=== PATIENT | male | born 1965 | race Caucasian/White ===

== ENCOUNTER → 2017-05-26 | Outpatient (CLI) | payer OTHER ==
[~2017-05-26] MED LIST: AMOX1TAB43 PO; ANDG TOP; ASPI81TA21 PO; BACIOIN2 TOP; BISA10SU RE; CALCTAB13 PO; CLC100 PO; CLC100X PO; CONSTULOSE PO; DIAZ5TAB PO; FLU IM; FLUO20CA36 PO; FLV1 PO; IPRA1AER2 INH; IPRASOL4 INH; MRLP120 PO; MULTTAB58 PO; NICO14DI5 TD; POLY335019 PO; POLY335025; PSEU60TA80 PO; THM100 PO
--- NOTE | 2017-06-08 10:42 | CODING QUERY MEDICAL NECESSITY ---
SUPPORTING DIAGNOSIS NEEDED A supporting diagnosis is required for the test/procedure performed on this patient in order for us to be reimbursed by the patient's insurance. Please provide a supporting diagnosis for the following test/procedure listed below next to the test name along with your signature. *If there is no additional diagnosis for this patient that would support the following test/procedure please document that below next to the test/procedure. Test(s)/Procedure(s) that require a supporting diagnosis: * PSA DIAGNOSIS: Provider Signature: Date: Thank you Laura Paredes [employer] Once completed, please kindly fax back to [phone] For questions please call [phone]
== END | disposition home or self-care (01) ==
LOC: C.LABPVFM 09:29
PROVIDERS: ATTEND Urology
DX: E29.1 Testicular hypofunction (principal); Z12.5 Encounter for screening for malignant neoplasm of prostate; Z80.42 Family history of malignant neoplasm of prostate

== ENCOUNTER → 2017-06-02 | Outpatient (CLI) | payer OTHER ==
--- NOTE | 2017-06-20 06:52 | CODING QUERY MEDICAL NECESSITY ---
TREATMENT RENDERED WITHOUT A DIAGNOSIS To promote full compliance with coding requirements relating to patient care, physician participation is requested in all cases of business developer uncertainty. Please assist us with providing a diagnosis/symptom for the test(s) below: A diagnosis/symptom was not documented on your Order. A valid diagnosis/symptom is required to bill all insurances. Please remember that we are unable to code a diagnosis of rule out, probable, possible, questionable, or suspected. Tests that require a diagnosis: * TESTOSTERONE, TOTAL DIAGNOSIS: Provider Signature: Date: Thank you Laura Paredes [employer] Once completed, please kindly fax back to [phone] For questions please call [phone]
== END | disposition home or self-care (01) ==
LOC: C.LABPVFM 12:59
PROVIDERS: ATTEND Urology
DX: E29.1 Testicular hypofunction (principal); C62.90 Malignant neoplasm of unspecified testis, unspecified whether descended or undescended

== ENCOUNTER 2017-06-16 17:43 | Inpatient (IN) | payer OTHER ==
[2017-06-16] VITALS (7 sets, daily range): BP systolic 99–137; BP diastolic 73–100; PULSE 91–108; TEMP 34.9–35.1; O2SAT 93–98; Ht 177.8 cm; Wt 81.0 kg
[~2017-06-16] VITALS: Ht 177.8 cm; Wt 81.0 kg
[~2017-06-16 17:43] MED LIST changes: -AMOX1TAB43 PO; -BACIOIN2 TOP; -BISA10SU RE; -CLC100X PO; -FLUO20CA36 PO; -FLV1 PO; -IPRA1AER2 INH; -IPRASOL4 INH; -NICO14DI5 TD; -POLY335019 PO; -PSEU60TA80 PO; -THM100 PO
[2017-06-16] MEDS ORDERED: NALOXONE HCL 0.4 MG/1 ML VIAL/CARP ONE (18:13)
[2017-06-16] MEDS ORDERED: SODIUM CHLORIDE 0.9% 1000ML 1,000 ML IV STA (18:17)
--- NOTE | 2017-06-16 18:29 | EMERGENCY ROOM VISIT NOTE ---
History Report prepared by Katja: Ariana Wilcox Under the Supervision of: Dr. Joel Mandel M.D. First contact with patient: 18:07 Stated Complaint: CARDIAC ARREST History of Present Illness The patient is a 51 year old male who presents to the Emergency Room with complaints of an episode of possible overdose beginning about 1 hour ago. Per EMS, the patient is a quadriplegic and was found by a caregiver with an open bottle of Valium. They report that they suspect that he took the Valium and note that he was pulseless and apneic. EMS states that they used an AED and and no shock was advised. When ALS arrived they note that he had an occasional complex but it was PEA. ALS put the patient on the Vu machine and called medical command due to questions about a possible DNR. After the call, they report that the patient had a pulse and he was intubated before arriving here. They note that the patient's blood sugar was in the 300s and he did have some vomit in his airway. They deny any vomiting after their arrival. EMS notes that he has received 2.4 of Narcan. HPI limited secondary to intubation. Source of History: patient History Limited By: intubation Onset: 1 hour ago Position: other (global) Quality: other (Valium Overdose) Timing: other (episode) Associated Symptoms: + vomiting Review of Systems See HPI for pertinent positives & negatives. ROS limited secondary to intubation. Past Medical & Surgical Medical Problems: (1) Anemia (2) H/O quadriplegia (3) Testicular cancer Family History No pertinent family history stated. Social History Smoking Status: Current Every Day Smoker Marital Status: Housing Status: lives alone Occupation Status: disabled Current/Historical Medications Scheduled Aspirin Enteric Coated (Ecotrin Or Generic), 81 MG PO DAILY Bacitracin/Polymyxin B (Polysporin), 1 DOSE TOP DIRECTED Bisacodyl (Magic Bullets), 10 MG RE MWF Calcium Carbonate-Vitamin D (Os-Cristian 500 Plus D), 1 TAB PO DAILY Diazepam (Valium), 5 MG PO BID Docusate Sodium (Docusate Sodium), 100 MG PO DAILY Multiple Vitamin (Multivitamin), 1 TAB PO DAILY Polyethylene Glycol 3350 (Miralax), 17 GM PO DAILY Testosterone (Androgel), 1 APPLN TOP DAILY DIRECTED Allergies Coded Allergies: Adhesives (Verified Adverse Reaction, Mild, LOCAL RASH, 08/29/14) Physical Exam Vital Signs Date Time Temp Pulse Resp B/P (MAP) Pulse Ox O2 Delivery O2 Flow Rate FiO2 06/16/17 21:41 105 12 106/81 94 Mechanical Ventilator 80 06/16/17 21:32 103 12 90/73 94 Mechanical Ventilator 80 06/16/17 21:24 99 12 98/72 95 Mechanical Ventilator 80 06/16/17 21:21 100 06/16/17 21:18 97 12 85/63 95 Mechanical Ventilator 80 06/16/17 21:13 100 12 106/70 95 Mechanical Ventilator 06/16/17 21:05 89 20 100/71 99 Mechanical Ventilator 06/16/17 20:56 86 12 88/74 99 Mechanical Ventilator 06/16/17 20:49 87 12 91/77 99 Mechanical Ventilator 100 06/16/17 20:21 109/81 06/16/17 20:20 86 12 100 06/16/17 20:16 79/52 06/16/17 20:15 95 12 100 06/16/17 20:12 113/91 06/16/17 20:10 90 12 100 06/16/17 20:09 123/88 06/16/17 20:06 152/110 06/16/17 20:05 89 12 100 06/16/17 20:01 128/94 06/16/17 20:00 88 12 100 06/16/17 19:56 143/94 06/16/17 19:55 86 12 100 06/16/17 19:51 130/89 06/16/17 19:50 87 12 100 06/16/17 19:46 147/105 06/16/17 19:45 83 12 100 06/16/17 19:41 155/97 06/16/17 19:40 82 12 100 06/16/17 19:36 145/101 06/16/17 19:35 81 12 100 06/16/17 19:31 146/96 06/16/17 19:30 83 12 100 06/16/17 19:26 143/101 06/16/17 19:25 81 12 100 06/16/17 19:21 125/84 06/16/17 19:20 83 12 100 06/16/17 19:17 78/48 06/16/17 19:15 85 12 100 06/16/17 19:10 87 12 100 06/16/17 19:06 71/53 06/16/17 19:05 90 0 100 06/16/17 19:04 82/51 06/16/17 19:01 74/59 06/16/17 19:00 91 0 100 06/16/17 18:51 92 85/53 100 06/16/17 18:30 85/56 06/16/17 18:26 34.6 100 86/66 100 Mechanical Ventilator 06/16/17 18:22 100 92/73 100 Mechanical Ventilator 06/16/17 18:21 100 06/16/17 18:19 100 Mechanical Ventilator 06/16/17 18:13 101 06/16/17 18:11 101 84/54 100 Mechanical Ventilator Physical Exam Vital signs reviewed. General: Intubated, no spontaneous movement. HEENT: No scleral icterus, pupils are pinpoint, neck supple. Vomit in the nose. Cardiovascular: Tachycardic rate and regular rhythm, no extra sounds. Pulmonary: Intubated, equal breath sounds, coarse bilaterally. Abdomen: Soft, nontender, nondistended, positive bowel sounds. Musculoskeletal: Atraumatic, no peripheral edema. Neurologic: Responds to painful stimuli with minimal L hand/arm movement. Some facial flinching. + gag on tube Skin: Warm, dry, no rash Medical Decision & Procedures ER Provider Diagnostic Interpretation: Radiology results as stated below per my review and radiologist interpretation: HEAD WITHOUT CONTRAST (CT) FINDINGS: No acute intracranial hemorrhage, midline shift, mass, large territorial ischemia or abnormal extra-axial collection. There is mild cerebral atrophy, greater than expected for patient's stated age. Feliz-white interface is maintained. Basal cisterns appear normal. There is an ill-defined area of low-attenuation within the periventricular white matter of the left frontal hemisphere seen on image 17 with additional scattered less distinct areas of periventricular white matter low attenuation. No comparison is available to assess for chronicity. The calvarium is intact. The mastoid air cells, and middle ear cavities are clear. There is moderate mucosal thickening of the nasopharynx, sphenoid, maxillary and ethmoid sinuses with associated air-fluid levels. Air-fluid level also noted within the right frontal sinus. Soft tissues are unremarkable. Orbits are symmetric. IMPRESSION: 1. No acute intracranial hemorrhage, midline shift or territorial ischemia. 2. Scattered areas of low-attenuation within the periventricular white matter of the cerebral hemispheres bilaterally are nonspecific findings and may reflect chronic microvascular ischemic changes with mild cerebral atrophy, mildly advanced for patient's stated age. 3. Acute pansinusitis. The above report was generated using voice recognition software. It may contain grammatical, syntax or spelling errors. Electronically signed by: Serafin Keyes M.D. 06/16/2017 6:53 PM Dictated Date/Time: 06/16/2017 6:[address] ANGIOGRAPHY OF THE CHEST, PULMONARY EMBOLUS PROTOCOL FINDINGS: The tip of the endotracheal tube is 2 cm above the milena. No pulmonary emboli are identified although the segmental and subsegmental pulmonary arteries are suboptimally assessed due to respiratory motion. There is mild cardiomegaly. There is no evidence of thoracic aortic dissection. No pneumothorax is present. There are trace bilateral pleural effusions. Note is made of asymmetric enlargement and infiltration involving the visualized portions of the right strap muscles of the neck as well as the sternocleidomastoid muscle. Infiltration extends into the upper mediastinum. This is slightly hyperdense and favors hemorrhage. No dissection within the major vessels is identified on this examination. Extensive secretions are noted throughout the airways. There is dependent airspace opacity within the upper and lower lobes with multifocal groundglass and tree-in-bud opacities throughout the lungs. No acute rib fractures are identified. There is minimal infiltration within the alberto hepatis and adjacent to the gallbladder. IMPRESSION: 1. No pulmonary emboli identified although segmental and subsegmental pulmonary arteries are suboptimally assessed due to respiratory motion. No thoracic aortic dissection. 2. Satisfactory positioning of endotracheal tube. 3. Asymmetric enlargement and infiltration involving visualized portions of the right strap muscles of the neck and sternocleidomastoid muscle with mild tracheal displacement. This finding is partially imaged and suggests a moderate sized hematoma. An inflammatory process could appear similar although is considered less likely. 4. Consolidation within the dependent aspects of both lungs with scattered tree-in-bud and groundglass opacities throughout both lungs with extensive secretions within the airways. The findings suggest aspiration. 5. Mild nonspecific pericholecystic infiltration and infiltration within the alberto hepatis. Findings discussed with Dr. Stoll at time of dictation. Electronically signed by: Munir Sanchez M.D. 06/16/2017 7:13 PM Dictated Date/Time: 06/16/2017 6:50 PM CHEST ONE VIEW PORTABLE FINDINGS: Endotracheal tube terminates 3.4 cm superior to the level of the milena. Cardiac silhouette is enlarged with bilateral upper lobe and perihilar consolidative opacities. There is mild pulmonary vascular congestion. The lungs are hypoinflated without pneumothorax or large pleural effusion identified. Fusion hardware involves the lower cervical spine. There is increased soft tissue prominence of the right lower neck. IMPRESSION: 1. Satisfactory position of endotracheal tube. 2. Cardiomegaly with mild pulmonary vascular congestion, perihilar and upper lobe alveolar opacities suggesting aspiration pneumonitis, atelectasis or pulmonary edema. 3. Asymmetric soft tissue prominence of the right lateral neck soft tissues is better evaluated on comparison CTA of same day. The above report was generated using voice recognition software. It may contain grammatical, syntax or spelling errors. Electronically signed by: Serafin Keyes M.D. 06/16/2017 7:03 PM Dictated Date/Time: 06/16/2017 7:00 PM Laboratory Results Test 06/16/17 18:15 06/16/17 18:19 06/16/17 18:22 06/16/17 20:06 Estimated Average Glucose 91 mg/dl Hemoglobin A1c 4.8 % (4.5-5.6) Beta-Hydroxybutyric Acid 2.28 mg/dL (0.2-2.81) Chemistry Specimen Hemolysis Bedside Chloride 96 mEq/L (101-112) Bedside Total CO2 25 mEq/l (24-31) Bedside Blood Urea Nitrogen 6 mg/dl (7-18) Bedside Creatinine 0.9 mg/dl (0.6-1.3) Bedside Ionized Calcium ([place]) 1.13 mmol/l (1.12-1.32) Bedside Hemoglobin 15.6 g/dl (14.0-18.0) Bedside Hematocrit 46 % (42-52) Bedside Sodium 132 mEq/L (135-144) Bedside Potassium 3.8 mEq/L (3.3-5.0) Venous Blood pH 7.09 (7.36-7.41) Venous Blood Partial Pressure CO2 85 mmHg (38.0-50.0) Venous Blood Partial Pressure O2 62 mmHg Venous Blood HCO3 25 mmol/L Venous Blood Oxygen Saturation 89.1 % Venous Blood Base Excess -6.9 mmol/L Test 06/16/17 20:53 Urine Color YELLOW Urine Appearance CLEAR (CLEAR) Urine pH 5.0 (4.5-7.5) Urine Specific [place] > 1.045 (1.000-1.030) Urine Protein 1+ (NEG) Urine Glucose (UA) 3+ (NEG) Urine Ketones NEG (NEG) Urine Occult Blood TRACE (NEG) Urine Nitrite POS (NEG) Urine Bilirubin NEG (NEG) Urine Urobilinogen NEG (NEG) Urine Leukocyte Esterase SMALL (NEG) Urine WBC (Auto) 10-30 /hpf (0-5) Urine RBC (Auto) 0-4 /hpf (0-4) Urine Hyaline Casts (Auto) 5-10 /lpf (0-5) Urine Epithelial Cells (Auto) 5-10 /lpf (0-5) Urine Bacteria (Auto) 4+ (NEG) Urine Opiates Screen POS (NEG) Urine Methadone, Qualitative NEG (NEG) Urine Barbiturates NEG (NEG) Urine Phencyclidine (PCP) Level NEG (NEG) Ur Amphetamine/Methamphetamine NEG (NEG) MDMA (Ecstasy) Screen NEG (NEG) Urine Benzodiazepines Screen POS (NEG) Urine Cocaine Metabolite NEG (NEG) Urine Marijuana (THC) NEG (NEG) Date/Time Source Procedure Growth Status 06/16/17 20:53 Urine,Catheterized Urine Culture - Final Klebsiella Pneumoniae Complete Laboratory results per my review. Medications Administered Medications (Trade) Dose Ordered Sig/Christie Route Start Time Stop Time Status Last Admin Dose Admin Naloxone HCl (Narcan Inj) 1.2 mg STK-MED ONCE .ROUTE 06/16/17 18:13 06/16/17 18:14 DC 06/16/17 18:57 1 MG Sodium Chloride 1,000 ml @ 125 mls/hr Q8H STAT IV 06/16/17 18:17 06/17/17 02:16 DC 06/16/17 20:41 125 MLS/HR Midazolam HCl (Versed Inj) 2 mg STK-MED ONCE .ROUTE 06/16/17 18:30 06/16/17 18:31 DC 06/16/17 18:58 2 MG Norepinephrine Bitartrate 8 mg/ Dextrose 508 ml @ 0 mls/hr Q0M STAT IV 06/16/17 18:58 06/16/17 19:00 DC 06/16/17 21:31 7 MLS/HR Fentanyl Citrate (Fentanyl Inj) 50 mcg NOW STAT IV 06/16/17 19:01 06/16/17 19:02 DC 06/16/17 20:40 50 MCG Piperacillin Sod/ Tazobactam Sod (Zosyn Iv) 4.5 gm NOW STAT IV 06/16/17 19:03 06/16/17 19:04 DC 06/16/17 20:48 4.5 GM Midazolam HCl (Versed Inj) 2 mg STK-MED ONCE .ROUTE 06/16/17 19:23 06/16/17 19:24 DC 06/16/17 20:40 2 MG Midazolam HCl (Versed Inj) 2 mg STK-MED ONCE .ROUTE 06/16/17 20:16 06/16/17 20:17 DC 06/16/17 20:40 2 MG Vancomycin HCl 270 ml @ 125 mls/hr 2200 ONCE IV 06/16/17 22:00 06/17/17 00:09 DC 06/16/17 22:05 125 MLS/HR Norepinephrine Bitartrate 8 mg/ Dextrose 508 ml @ 0 mls/hr Q0M PRN IV 06/16/17 22:06 06/17/17 17:50 DC 06/17/17 13:37 20.5 MLS/HR Procedure Central Venous Catheter Indication: hypotension vasopressors Catheter type: Triple Lumen Location: Left Femoral Verbal consent was obtained after the risks and benefits were explained, including but not limited to pneumothorax, hemothorax, vessel injury, bleeding, scarring, infection, pain, and bone/joint/nerve damage. At this time, the risks of the procedure are less than the risks of NOT performing the procedure. A time out was taken and the correct patient and site identified. The patient was placed in the supine position and the skin was prepped in the standard fashion with chlorhexidine and full sterile drapes applied. The proper landmarks were identified with ultrasound, anesthetized with 1% lidocaine without epinephrine, and the needle was inserted through the skin in the standard fashion. The needle was carefully advanced into blood vessel lumen under ultrasound guidance. The guidewire was placed uneventfully. The vessel is dilated and the catheter was placed. It was sutured into position. There was good blood return from all ports. The patient tolerated the procedure well and there were no complications. Post procedure x-ray was normal. ECG Indication: other (cardiac arrest) Rate (beats per minute): 101 Rhythm: sinus tachycardia Findings: nonspecific-ST abn, other (likely previous infarct, QTC 500) ED Course 1806: Past medical records reviewed. The patient was evaluated in room A1. A complete history and physical examination was performed. 1812: Narcan Inj 1.2mg IV. 1816: Sodium Chloride 1000 ml @ 125 mls/hr IV. 1828: The patient is gagging on the tube. 1829: Versed Inj 2mg IV. 1838: I spoke to the patients mom, sister, and caregiver. 1857: Norepinephrine Bitartrate 8mg/Dextrose 508ml @ 0mls/hr Protocol IV. 1900: Versed Inj 2mg IV, Fentanyl Inj 50mcg IV. 1900: I spoke to Dr. Sanchez. The patient does not have a PE and likely aspirated and has a hematoma to his anterior chest wall. 1902: Zosyn IV 4.5gm IV. 1920: I reviewed the patient's case with Dr. Farley of [facility]. He will evaluate the patient for further management. 1922: Versed Inj 2mg IV. 1926: I placed a central line. See the procedure note. 2015: Versed Inj 20mg IV. 2022: Upon reevaluation, the patient is resting comfortably. I discussed laboratory and radiographic results with the patient's family. They verbalized agreement of the treatment plan. I spoke with Dr. Farley of the [facility] Hospitalist Service. The patient will be evaluated for further management and care. Medical Decision Differential diagnosis: Etiologies such as cardiac ischemia, aortic dissection, pulmonary embolism, electrolyte abnormality, acidosis, tension pneumothorax, hypothermia, hypovolemia, intracranial event, as well as others were entertained. This pt was evaluated and appeared to be critically ill. Patient is intubated with emesis to the nares. Blood pressure is initially hypotensive. IV hydration has been initiated. Laboratory work reveals an elevated troponin which is not surprising as he did receive compressions. The patient is maintaining his rhythm periodically has thready pulses. IV normal Doppler and was started peripherally. A triple-lumen catheter was placed in the left femoral vein by myself. The patient did require occasional IV fentanyl and Versed boluses to maintain sedation. He was gagging on the ET tube. CT scan of the head reveals no evidence of acute intracranial abnormality. CT scan of the chest reveals no evidence of PE, there is an anterior chest hematoma likely secondary to the Vu machine. IV Zosyn was started due to the patient's hypotension and likely aspiration. I had several long conversations with the patient's mother. She initially was unclear regarding her thoughts of his DO NOT RESUSCITATE status. Paramedics were instructed to continue resuscitation at the scene. The patient had spontaneous conversion to a sinus rhythm during CPR. Patient's family was feeling conflicted regarding continuing with supportive care or extubating and continuing comfort care measures only. At this time, the pt will be evaluated by Dr. Le the hospitalist service. The ICU attending has been notified. Medication Reconcilliation Current Medication List: was personally reviewed by me Blood Pressure Screening Patient's blood pressure: Low blood pressure Blood pressure disposition: Did not require urgent referral Consults Time Called: 1917 Consulting Physician: Dr. Farley - [facility] Returned Call: 1920 I reviewed the patient's case with Dr. Farley of [facility]. He will evaluate the patient for further management. Impression Primary Impression: Cardiopulmonary arrest Critical Care I have personally spent greater than 60 minutes of critical care time in the direct management of this patient. This includes bedside care, interpretation of diagnostic studies, and testing, discussion with consultants, patient, and family members, and other required patient management activities. This 60 minutes is in excess of all separately billable procedures. Scribe Attestation The scribe's documentation has been prepared under my direction and personally reviewed by me in its entirety. I confirm that the note above accurately reflects all work, treatment, procedures, and medical decision making performed by me. Departure Information Dispostion Being Evaluated By Hospitalist Referrals Alicia Soto MD (PCP)
[2017-06-16] MEDS ORDERED: MIDAZOLAM HCL 1 MG/ML 2ML VIAL ONE ×3 (18:30→20:16)
[2017-06-16] MEDS ORDERED: OPTIRAY 320 IV PRN (18:30)
[2017-06-16] MEDS ORDERED: MIDAZOLAM HCL 5 MG/ML 1 ML VIAL IV STA ×2 (18:30→19:01)
[2017-06-16] MEDS ORDERED: BACIOIN2 TOP (18:31)
[2017-06-16] MEDS ORDERED: POLY335019 PO (18:31)
[2017-06-16] MEDS ORDERED: CLC100X PO (18:31)
[2017-06-16] MEDS ORDERED: BISA10SU RE (18:31)
[2017-06-16 18:35] LABS: ISTAT ARTERIAL BLOOD GAS HCO3 22 meq/L (19-24); ISTAT ARTERIAL BLOOD GAS PCO2 75 mmHg (35-46); ISTAT ARTERIAL BLOOD GAS PO2 276 mmHg (80-95); ISTAT ARTERIAL BLOOD GAS pH 7.08 (7.35-7.45); ISTAT CARBON DIOXIDE 25 mEq/l (24-31); ISTAT HEMATOCRIT 46 % (42-52); ISTAT HEMOGLOBIN 15.6 g/dl (14.0-18.0); ISTAT SODIUM 132 mEq/L (135-144)
[2017-06-16 18:35] LABS: ISTAT CREATININE 0.9 mg/dl (0.6-1.3); ISTAT IONIZED CALCIUM 1.13 mmol/l (1.12-1.32)
[2017-06-16 18:38] LABS: BASO % 0.1 %; BASO ABS # 0.01 K/uL (0-0.2); COMPLETE YES; EOS % 0.7 %; HEMATOCRIT 51.7 % (42-52); IG% 1.3 %; LYMPH % 10.2 %; LYMPH ABS # 1.13 K/uL (1.2-3.4); MEAN CELL VOLUME 103.8 fL (80-100); MEAN CORPUSCULAR HEMOGLOBIN 33.7 pg (25-34); MEAN CORPUSCULAR HGB CONC 32.5 g/dl (32-36); MEAN PLATELET VOLUME 11.7 fL (7.4-10.4); MONO % 1.1 %; NEUT % 86.6 %; PLATELET COUNT 124 K/uL (130-400); RED BLOOD COUNT 4.98 M/uL (4.7-6.1); WHITE BLOOD COUNT 11.03 K/uL (4.8-10.8)
[2017-06-16 18:47] LABS: INR 1.2 (0.9-1.1); PARTIAL THROMBOPLASTIN RATIO 1.3; PROTHROMBIN TIME (PATIENT) 13.3 SECONDS (9.0-12.0)
--- NOTE | 2017-06-16 18:55 | DIAGNOSTIC IMAGING REPORT ---
HEAD WITHOUT CONTRAST (CT) CLINICAL HISTORY: 51 years-old Male with s/p cardiac arrest. TECHNIQUE: Multiple axial CT images of the head were obtained without contrast. A dose lowering technique was utilized adhering to the principles of ALARA. CT DOSE: 741.55 mGycm COMPARISON: None. FINDINGS: No acute intracranial hemorrhage, midline shift, mass, large territorial ischemia or abnormal extra-axial collection. There is mild cerebral atrophy, greater than expected for patient's stated age. Feliz-white interface is maintained. Basal cisterns appear normal. There is an ill-defined area of low-attenuation within the periventricular white matter of the left frontal hemisphere seen on image 17 with additional scattered less distinct areas of periventricular white matter low attenuation. No comparison is available to assess for chronicity. The calvarium is intact. The mastoid air cells, and middle ear cavities are clear. There is moderate mucosal thickening of the nasopharynx, sphenoid, maxillary and ethmoid sinuses with associated air-fluid levels. Air-fluid level also noted within the right frontal sinus. Soft tissues are unremarkable. Orbits are symmetric. IMPRESSION: 1. No acute intracranial hemorrhage, midline shift or territorial ischemia. 2. Scattered areas of low-attenuation within the periventricular white matter of the cerebral hemispheres bilaterally are nonspecific findings and may reflect chronic microvascular ischemic changes with mild cerebral atrophy, mildly advanced for patient's stated age. 3. Acute pansinusitis. The above report was generated using voice recognition software. It may contain grammatical, syntax or spelling errors. Electronically signed by: Serafin Keyes M.D. 06/16/2017 6:53 PM Dictated Date/Time: 06/16/2017 6:48 PM
[2017-06-16] MEDS ORDERED: NOREPINEPHRINE BIT INJ 8 MG in DEXTROSE 5% 500ML 500 ML IV STA (18:58)
[2017-06-16] MEDS ORDERED: FENTANYL CITRATE INJ 50 MCG/1 ML 2 ML VIAL IV STA (19:01)
[2017-06-16] MEDS ORDERED: PIPERACILLIN/TAZOBACTAM 4.5 GM/100ML D5W IV STA (19:03)
--- NOTE | 2017-06-16 19:04 | DIAGNOSTIC IMAGING REPORT ---
CHEST ONE VIEW PORTABLE HISTORY: 51 years-old Male respiratory failure. Status post intubation. COMPARISON: Chest radiograph 08/01/2012, CTA of the chest 06/16/2017 TECHNIQUE: Supine AP view of the chest FINDINGS: Endotracheal tube terminates 3.4 cm superior to the level of the milena. Cardiac silhouette is enlarged with bilateral upper lobe and perihilar consolidative opacities. There is mild pulmonary vascular congestion. The lungs are hypoinflated without pneumothorax or large pleural effusion identified. Fusion hardware involves the lower cervical spine. There is increased soft tissue prominence of the right lower neck. IMPRESSION: 1. Satisfactory position of endotracheal tube. 2. Cardiomegaly with mild pulmonary vascular congestion, perihilar and upper lobe alveolar opacities suggesting aspiration pneumonitis, atelectasis or pulmonary edema. 3. Asymmetric soft tissue prominence of the right lateral neck soft tissues is better evaluated on comparison CTA of same day. The above report was generated using voice recognition software. It may contain grammatical, syntax or spelling errors. Electronically signed by: Serafin Keyes M.D. 06/16/2017 7:03 PM Dictated Date/Time: 06/16/2017 7:00 PM
[2017-06-16 19:09] LABS: ALKALINE PHOSPHATASE 86 U/L (45-117); ALT/SGPT 40 U/L (12-78); AST/SGOT 48 U/L (15-37); BLOOD UREA NITROGEN 7 mg/dl (7-18); BUN/CREATININE RATIO 5.5 (10-20); CALCIUM 7.9 mg/dl (8.5-10.1); CARBON DIOXIDE 25 mmol/L (21-32); CHLORIDE 99 mmol/L (98-107); CKMB/CK RATIO 2.3 (0-3.0); GLUCOSE 320 mg/dl (70-99); MAGNESIUM 2.3 mg/dl (1.8-2.4); POTASSIUM 4.7 mmol/L (3.5-5.1); SODIUM 134 mmol/L (136-145)
--- NOTE | 2017-06-16 19:14 | DIAGNOSTIC IMAGING REPORT ---
CT ANGIOGRAPHY OF THE CHEST, PULMONARY EMBOLUS PROTOCOL CLINICAL HISTORY: Status post cardiac arrest. COMPARISON STUDY: Chest CT July 06, 2013. TECHNIQUE: Following IV administration of 109 mL of Optiray-320, helical axial images of the chest were obtained utilizing the pulmonary embolus protocol. Maximal intensity projections and sagittal and coronal reformats were viewed on an independent 3D workstation. IV contrast was administered without complication. A dose lowering technique was utilized adhering to the principles of ALARA. CT DOSE: 570.52 mGycm FINDINGS: The tip of the endotracheal tube is 2 cm above the milena. No pulmonary emboli are identified although the segmental and subsegmental pulmonary arteries are suboptimally assessed due to respiratory motion. There is mild cardiomegaly. There is no evidence of thoracic aortic dissection. No pneumothorax is present. There are trace bilateral pleural effusions. Note is made of asymmetric enlargement and infiltration involving the visualized portions of the right strap muscles of the neck as well as the sternocleidomastoid muscle. Infiltration extends into the upper mediastinum. This is slightly hyperdense and favors hemorrhage. No dissection within the major vessels is identified on this examination. Extensive secretions are noted throughout the airways. There is dependent airspace opacity within the upper and lower lobes with multifocal groundglass and tree-in-bud opacities throughout the lungs. No acute rib fractures are identified. There is minimal infiltration within the alberto hepatis and adjacent to the gallbladder. IMPRESSION: 1. No pulmonary emboli identified although segmental and subsegmental pulmonary arteries are suboptimally assessed due to respiratory motion. No thoracic aortic dissection. 2. Satisfactory positioning of endotracheal tube. 3. Asymmetric enlargement and infiltration involving visualized portions of the right strap muscles of the neck and sternocleidomastoid muscle with mild tracheal displacement. This finding is partially imaged and suggests a moderate sized hematoma. An inflammatory process could appear similar although is considered less likely. 4. Consolidation within the dependent aspects of both lungs with scattered tree-in-bud and groundglass opacities throughout both lungs with extensive secretions within the airways. The findings suggest aspiration. 5. Mild nonspecific pericholecystic infiltration and infiltration within the alberto hepatis. Findings discussed with Dr. Stoll at time of dictation. Electronically signed by: Munir Sanchez M.D. 06/16/2017 7:13 PM Dictated Date/Time: 06/16/2017 6:50 PM
[2017-06-16 19:26] LABS: BETA-HYDROXYBUTYRATE 2.28 mg/dL (0.2-2.81)
[2017-06-16 20:35] LABS: VEN BLD GAS O2 SATURATION 89.1 %; VEN BLOOD GAS BASE EXCESS -6.9 mmol/L
[2017-06-16 21:06] LABS: URINE APPEARANCE CLEAR (CLEAR); URINE BILIRUBIN NEG (NEG); URINE COLOR YELLOW; URINE NITRITE POS (NEG); URINE SPECIFIC GRAVITY > 1.045 (1.000-1.030); UROBILINOGEN NEG (NEG); ZZURINE CULT IF INDIC CATH YES
[2017-06-16 21:12] LABS: MANUAL MICROSCOPIC REQUIRED? NO; REVIEW REQ? NO
[2017-06-16] MEDS ORDERED: VANCOMYCIN 1GM/270ML NSS 270 ML IV ONE (22:00)
[2017-06-16] MEDS ORDERED: NOREPINEPHRINE BIT INJ 8 MG in DEXTROSE 5% 500ML 500 ML IV PRN (22:06)
[2017-06-16] MEDS ORDERED: LORAZEPAM 2 MG/ML 1 ML VIAL IV PRN (22:15)
--- NOTE | 2017-06-16 22:39 | Critical Care Consultation ---
Critical Care Consultation Date of Consultation: Jun 16, 2017. Attending Physician: Reason for Consultation: Cardiac arrest History of Present Illness This is a 51 year old male with h/o quadriplegia secondary to C5 fracture 20 years ago exactly, was found unresponsive around 5 PM with open bottle of Valium (his own) and oxycodone (not his). Last was seen around 1 PM when he was awake but seemed drowsy. EMS found him in PEA, administered Narcan, FSBG was 300. Was intubated, with some vomitus noted in the oropharynx, Vu device was placed, eventually had ROSC. Patient is unresponsive, not on any sedation, on Levophed. He initially was DNR at home, but at the time it was decided to intubated him. Now the family wants to issue DNR again, wait for few days and see if he recovers, otherwise they are contemplating terminal wean. Past Medical/Surgical History Spastic quadriplegia. Social History Smoking Status: Current Every Day Smoker Alcohol Use: heavy (Drinks Rum) Marital Status: Housing Status: lives alone Occupation Status: disabled Allergies Coded Allergies: Adhesives (Verified Adverse Reaction, Mild, LOCAL RASH, 08/29/14) Home Medications Scheduled Aspirin Enteric Coated (Ecotrin Or Generic), 81 MG PO DAILY Bacitracin/Polymyxin B (Polysporin), 1 DOSE TOP DIRECTED Bisacodyl (Magic Bullets), 10 MG RE MWF Calcium Carbonate-Vitamin D (Os-Cristian 500 Plus D), 1 TAB PO DAILY Diazepam (Valium), 5 MG PO BID Docusate Sodium (Docusate Sodium), 100 MG PO DAILY Multiple Vitamin (Multivitamin), 1 TAB PO DAILY Polyethylene Glycol 3350 (Miralax), 17 GM PO DAILY Testosterone (Androgel), 1 APPLN TOP DAILY DIRECTED Current Inpatient Medications Current Inpatient Medications Medications (Trade) Dose Ordered Sig/Christie Route Start Time Stop Time Status Last Admin Dose Admin Sodium Chloride 1,000 ml @ 125 mls/hr Q8H STAT IV 06/16/17 18:17 06/17/17 02:16 06/16/17 20:41 125 MLS/HR Ioversol (Optiray 320) 100 ml UD PRN IV 06/16/17 18:30 06/20/17 18:29 Vancomycin HCl 270 ml @ 125 mls/hr 2200 ONCE IV 06/16/17 22:00 06/17/17 00:09 06/16/17 22:05 125 MLS/HR Review of Systems Unable to obtain secondary to being comatose Physical Exam Date Time Temp Pulse Resp B/P (MAP) Pulse Ox O2 Delivery O2 Flow Rate FiO2 06/16/17 21:41 105 12 106/81 94 Mechanical Ventilator 80 06/16/17 21:32 103 12 90/73 94 Mechanical Ventilator 80 06/16/17 21:24 99 12 98/72 95 Mechanical Ventilator 80 06/16/17 21:21 100 06/16/17 21:18 97 12 85/63 95 Mechanical Ventilator 80 06/16/17 21:13 100 12 106/70 95 Mechanical Ventilator 06/16/17 21:05 89 20 100/71 99 Mechanical Ventilator 06/16/17 20:56 86 12 88/74 99 Mechanical Ventilator 06/16/17 20:49 87 12 91/77 99 Mechanical Ventilator 100 06/16/17 20:21 109/81 06/16/17 20:20 86 12 100 06/16/17 20:16 79/52 06/16/17 20:15 95 12 100 06/16/17 20:12 113/91 06/16/17 20:10 90 12 100 06/16/17 20:09 123/88 06/16/17 20:06 152/110 06/16/17 20:05 89 12 100 06/16/17 20:01 128/94 06/16/17 20:00 88 12 100 06/16/17 19:56 143/94 06/16/17 19:55 86 12 100 06/16/17 19:51 130/89 06/16/17 19:50 87 12 100 06/16/17 19:46 147/105 06/16/17 19:45 83 12 100 06/16/17 19:41 155/97 06/16/17 19:40 82 12 100 06/16/17 19:36 145/101 06/16/17 19:35 81 12 100 06/16/17 19:31 146/96 06/16/17 19:30 83 12 100 06/16/17 19:26 143/101 06/16/17 19:25 81 12 100 06/16/17 19:21 125/84 06/16/17 19:20 83 12 100 06/16/17 19:17 78/48 06/16/17 19:15 85 12 100 06/16/17 19:10 87 12 100 06/16/17 19:06 71/53 06/16/17 19:05 90 0 100 06/16/17 19:04 82/51 06/16/17 19:01 74/59 06/16/17 19:00 91 0 100 06/16/17 18:51 92 85/53 100 06/16/17 18:30 85/56 06/16/17 18:26 34.6 100 86/66 100 Mechanical Ventilator 06/16/17 18:22 100 92/73 100 Mechanical Ventilator 06/16/17 18:21 100 06/16/17 18:19 100 Mechanical Ventilator 06/16/17 18:13 101 06/16/17 18:11 101 84/54 100 Mechanical Ventilator General Appearance: no apparent distress Eyes: other (Pupils are small, 1 mm, non-reactive ) Neck: other (Mild neck fullnes) Respiratory: clear to auscultation Cardiovasular: regular rate/rhythm, normal S1S2 Abdomen: other (Soft) Upper Extremities: no edema Lower Extremities: no edema Neuro: other (Comatose, not reacting to pain. No pupilary reflex, very weak corneal reflex, no cough or gag reflex, no spontaneous breathing on CPAP) Laboratory Results Last 24 Hours Test 06/16/17 18:15 06/16/17 18:19 06/16/17 18:22 06/16/17 20:06 White Blood Count 11.03 K/uL Red Blood Count 4.98 M/uL Hemoglobin 16.8 g/dL Hematocrit 51.7 % Mean Corpuscular Volume 103.8 fL Mean Corpuscular Hemoglobin 33.7 pg Mean Corpuscular Hemoglobin Concent 32.5 g/dl Platelet Count 124 K/uL Mean Platelet Volume 11.7 fL Neutrophils (%) (Auto) 86.6 % Lymphocytes (%) (Auto) 10.2 % Monocytes (%) (Auto) 1.1 % Eosinophils (%) (Auto) 0.7 % Basophils (%) (Auto) 0.1 % Neutrophils # (Auto) 9.55 K/uL Lymphocytes # (Auto) 1.13 K/uL Monocytes # (Auto) 0.12 K/uL Eosinophils # (Auto) 0.08 K/uL Basophils # (Auto) 0.01 K/uL RDW Standard Deviation 51.0 fL RDW Coefficient of Variation 13.4 % Immature Granulocyte % (Auto) 1.3 % Immature Granulocyte # (Auto) 0.14 K/uL Prothrombin Time 13.3 SECONDS Prothromb Time International Ratio 1.2 Activated Partial Thromboplast Time 32.6 SECONDS Partial Thromboplastin Ratio 1.3 Sodium Level 134 mmol/L Potassium Level 4.7 mmol/L Chloride Level 99 mmol/L Carbon Dioxide Level 25 mmol/L Anion Gap 10.0 mmol/L 19.0 mmol/L Blood Urea Nitrogen 7 mg/dl Creatinine 1.20 mg/dl Estimated GFR () 81.8 Estimated GFR (Non- 70.6 BUN/Creatinine Ratio 5.5 Random Glucose 320 mg/dl Calcium Level 7.9 mg/dl Magnesium Level 2.3 mg/dl Total Bilirubin 0.3 mg/dl Direct Bilirubin mg/dl Aspartate Amino Transf (AST/SGOT) 48 U/L Alanine Aminotransferase (ALT/SGPT) 40 U/L Alkaline Phosphatase 86 U/L Total Creatine Kinase 136 U/L Creatine Kinase MB 3.1 ng/ml Creatine Kinase MB Ratio 2.3 Total Protein 6.3 gm/dl Albumin 3.1 gm/dl Beta-Hydroxybutyric Acid 2.28 mg/dL Chemistry Specimen Hemolysis Bedside Hemoglobin 18.0 g/dl 15.6 g/dl Bedside Hematocrit 53 % 46 % Bedside Sodium 134 mEq/L 132 mEq/L Bedside Potassium 4.7 mEq/L 3.8 mEq/L Bedside Chloride 96 mEq/L Bedside Total CO2 25 mEq/l Bedside Blood Urea Nitrogen 6 mg/dl Bedside Creatinine 0.9 mg/dl Bedside Glucose (other) 329 mg/dl Bedside Ionized Calcium (Mustapha) 1.13 mmol/l Bedside Blood Gas pH (LAB) 7.08 Bedside Blood Gas pCO2 (LAB) 75 mmHg Bedside Blood Gas pO2 (LAB) 276 mmHg Bedside Blood Gas HCO3 (LAB) 22 meq/L Bedside Blood Gas Total CO2 25 mEq/l Bedside Blood Gas Base Excess (LAB) -8.0 meq/L Bedside Blood Gas O2 Saturation 100.0 % Venous Blood pH 7.09 Venous Blood Partial Pressure CO2 85 mmHg Venous Blood Partial Pressure O2 62 mmHg Venous Blood HCO3 25 mmol/L Venous Blood Oxygen Saturation 89.1 % Venous Blood Base Excess -6.9 mmol/L Test 06/16/17 20:53 06/16/17 21:25 06/16/17 21:47 06/16/17 22:04 Urine Color YELLOW Urine Appearance CLEAR Urine pH 5.0 Urine Specific Reserve > 1.045 Urine Protein 1+ Urine Glucose (UA) 3+ Urine Ketones NEG Urine Occult Blood TRACE Urine Nitrite POS Urine Bilirubin NEG Urine Urobilinogen NEG Urine Leukocyte Esterase SMALL Urine WBC (Auto) 10-30 /hpf Urine RBC (Auto) 0-4 /hpf Urine Hyaline Casts (Auto) 5-10 /lpf Urine Epithelial Cells (Auto) 5-10 /lpf Urine Bacteria (Auto) 4+ Diagnostic Results 1. No pulmonary emboli identified although segmental and subsegmental pulmonary arteries are suboptimally assessed due to respiratory motion. No thoracic aortic dissection. 2. Satisfactory positioning of endotracheal tube. 3. Asymmetric enlargement and infiltration involving visualized portions of the right strap muscles of the neck and sternocleidomastoid muscle with mild tracheal displacement. This finding is partially imaged and suggests a moderate sized hematoma. An inflammatory process could appear similar although is considered less likely. 4. Consolidation within the dependent aspects of both lungs with scattered tree-in-bud and groundglass opacities throughout both lungs with extensive secretions within the airways. The findings suggest aspiration. 5. Mild nonspecific pericholecystic infiltration and infiltration within the alberto hepatis.CT brain: IMPRESSION: 1. No acute intracranial hemorrhage, midline shift or territorial ischemia. 2. Scattered areas of low-attenuation within the periventricular white matter of the cerebral hemispheres bilaterally are nonspecific findings and may reflect chronic microvascular ischemic changes with mild cerebral atrophy, mildly advanced for patient's stated age. 3. Acute pansinusitis. CT chest: Assessment & Plan 51 year old male with 20 year history of spastic quadriplegia, s/p PEA arrest, likely secondary to intentional overdose, with suspected anoxic brain injury. 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 Strong suspicion of anoxia, even though CT scan still not showing it, will establish over the next few days as the benzos and narcotics wash out of his system. Not a candidate for therapeutic hypothermia, is DNR, debilitated at baseline. Aim for normothermia, it is just as beneficial according to recent data. Essentially avoid fever. Check urine drug screen and alcohol level Pulmonary: Continue vent support Elevate head CT reading possible neck hematoma, not sure how it occurred. Monitor clinically , possible repeat imaging. Airway is secure now with the ET tube CVS: Pressor support IV fluids Check echo ID: [id number] Abx given hypotension Check blood and sputum cultures Endo: Check HbA1C Aspart sliding scale GI: Insert NGT NPO for now Heme: Questionable neck hematoma. Monitor CBC DVT prophylaxis: SCDs. No heparin in the setting of possible hematoma Critical care time spent greater than 40 minutes Prognosis is dismal
[2017-06-16] MEDS ORDERED: VANCOMYCIN CONSULT ACTIVE PRN (22:45)
[2017-06-16] MEDS ORDERED: NSS + 20MEQ KCL 1000ML 1,000 ML IV SCH (22:45)
[2017-06-16] MEDS ORDERED: PIPERACILL/TAZOBAC CONSULT ACTIVE PRN (22:45)
[2017-06-16] MEDS ORDERED: LORAZEPAM INJ 0.5 MG in SYRINGE 0.75 ML IV PRN (23:00)
--- NOTE | 2017-06-16 23:24 | Pharmacy Progress Note ---
Pharmacy Antibiotic Consult Date of Service: Jun 16, 2017. Pharmacy Dosing Scope Pharmacy is consulted to initiate vanc/zosyn-IV dosing therapy, order appropriate labs and adjust drug dose/frequency. Subjective The patient is a 51 year old male admitted on Jun 16, 2017 at 22:06 with drug overdose ordered broad spectrum IV antibiotics for pulmonary infection Objective Weight (Kilograms): 96.500 Lab Results (24hrs): Test 06/16/17 18:15 06/16/17 18:19 06/16/17 18:22 06/16/17 20:06 White Blood Count 11.03 K/uL (4.8-10.8) Red Blood Count 4.98 M/uL (4.7-6.1) Hemoglobin 16.8 g/dL (14.0-18.0) Hematocrit 51.7 % (42-52) Mean Corpuscular Volume 103.8 fL (80-100) Mean Corpuscular Hemoglobin 33.7 pg (25-34) Mean Corpuscular Hemoglobin Concent 32.5 g/dl (32-36) Platelet Count 124 K/uL (130-400) Mean Platelet Volume 11.7 fL (7.4-10.4) Neutrophils (%) (Auto) 86.6 % Lymphocytes (%) (Auto) 10.2 % Monocytes (%) (Auto) 1.1 % Eosinophils (%) (Auto) 0.7 % Basophils (%) (Auto) 0.1 % Neutrophils # (Auto) 9.55 K/uL (1.4-6.5) Lymphocytes # (Auto) 1.13 K/uL (1.2-3.4) Monocytes # (Auto) 0.12 K/uL (0.11-0.59) Eosinophils # (Auto) 0.08 K/uL (0-0.5) Basophils # (Auto) 0.01 K/uL (0-0.2) RDW Standard Deviation 51.0 fL (36.4-46.3) RDW Coefficient of Variation 13.4 % (11.5-14.5) Immature Granulocyte % (Auto) 1.3 % Immature Granulocyte # (Auto) 0.14 K/uL (0.00-0.02) Prothrombin Time 13.3 SECONDS (9.0-12.0) Prothromb Time International Ratio 1.2 (0.9-1.1) Activated Partial Thromboplast Time 32.6 SECONDS (21.0-31.0) Partial Thromboplastin Ratio 1.3 Sodium Level 134 mmol/L (136-145) Potassium Level 4.7 mmol/L (3.5-5.1) Chloride Level 99 mmol/L (98-107) Carbon Dioxide Level 25 mmol/L (21-32) Anion Gap 10.0 mmol/L (3-11) 19.0 mmol/L (16-25) Blood Urea Nitrogen 7 mg/dl (7-18) Creatinine 1.20 mg/dl (0.60-1.40) Estimated GFR () 81.8 Estimated GFR (Non- 70.6 BUN/Creatinine Ratio 5.5 (10-20) Random Glucose 320 mg/dl (70-99) Calcium Level 7.9 mg/dl (8.5-10.1) Magnesium Level 2.3 mg/dl (1.8-2.4) Total Bilirubin 0.3 mg/dl (0.2-1) Direct Bilirubin mg/dl (0-0.2) Aspartate Amino Transf (AST/SGOT) 48 U/L (15-37) Alanine Aminotransferase (ALT/SGPT) 40 U/L (12-78) Alkaline Phosphatase 86 U/L (45-117) Total Creatine Kinase 136 U/L (39-308) Creatine Kinase MB 3.1 ng/ml (0.5-3.6) Creatine Kinase MB Ratio 2.3 (0-3.0) Total Protein 6.3 gm/dl (6.4-8.2) Albumin 3.1 gm/dl (3.4-5.0) Beta-Hydroxybutyric Acid 2.28 mg/dL (0.2-2.81) Chemistry Specimen Hemolysis Bedside Hemoglobin 18.0 g/dl (14.0-18.0) 15.6 g/dl (14.0-18.0) Bedside Hematocrit 53 % (42-52) 46 % (42-52) Bedside Sodium 134 mEq/L (135-144) 132 mEq/L (135-144) Bedside Potassium 4.7 mEq/L (3.3-5.0) 3.8 mEq/L (3.3-5.0) Bedside Chloride 96 mEq/L (101-112) Bedside Total CO2 25 mEq/l (24-31) Bedside Blood Urea Nitrogen 6 mg/dl (7-18) Bedside Creatinine 0.9 mg/dl (0.6-1.3) Bedside Glucose (other) 329 mg/dl (70-99) Bedside Ionized Calcium (Mustapha) 1.13 mmol/l (1.12-1.32) Bedside Blood Gas pH (LAB) 7.08 (7.35-7.45) Bedside Blood Gas pCO2 (LAB) 75 mmHg (35-46) Bedside Blood Gas pO2 (LAB) 276 mmHg (80-95) Bedside Blood Gas HCO3 (LAB) 22 meq/L (19-24) Bedside Blood Gas Total CO2 25 mEq/l (24-31) Bedside Blood Gas Base Excess (LAB) -8.0 meq/L (-9-1.8) Bedside Blood Gas O2 Saturation 100.0 % (90-95) Venous Blood pH 7.09 (7.36-7.41) Venous Blood Partial Pressure CO2 85 mmHg (38.0-50.0) Venous Blood Partial Pressure O2 62 mmHg Venous Blood HCO3 25 mmol/L Venous Blood Oxygen Saturation 89.1 % Venous Blood Base Excess -6.9 mmol/L Test 06/16/17 20:53 06/16/17 23:07 Urine Color YELLOW Urine Appearance CLEAR (CLEAR) Urine pH 5.0 (4.5-7.5) Urine Specific Terral > 1.045 (1.000-1.030) Urine Protein 1+ (NEG) Urine Glucose (UA) 3+ (NEG) Urine Ketones NEG (NEG) Urine Occult Blood TRACE (NEG) Urine Nitrite POS (NEG) Urine Bilirubin NEG (NEG) Urine Urobilinogen NEG (NEG) Urine Leukocyte Esterase SMALL (NEG) Urine WBC (Auto) 10-30 /hpf (0-5) Urine RBC (Auto) 0-4 /hpf (0-4) Urine Hyaline Casts (Auto) 5-10 /lpf (0-5) Urine Epithelial Cells (Auto) 5-10 /lpf (0-5) Urine Bacteria (Auto) 4+ (NEG) Micro Results: BC x 2 from 06/16/17 UC x 1 from 06/16/17 Assessment & Plan VANC-IV: * Estimated p'kinetics: Vd: 0.7L/kg, Ke~0.072, T1/2~9.6 hrs * Loading dose: Received VANC 1 gram (10mg/kg) IV x 1 in ED, will start maintenance dose early as did not receive 25mg/kg load. * Maintenance DOse: VANC 1400mg (15mg/kg) IV every 12 hours. * VANC trough @Css prior to 06/18 1400 dose. * Goal trough 15-20 mcg/mL ZOSYN-IV: 4.5 grams IV x 1, then 4.5 grams IV CI every 8 hours. Pharmacy will continue to follow and will adjust dose/frequency as necessary. Thank you
[2017-06-16 23:29] LABS: BENZODIAZEPINE, URINE POS (NEG); COCAINE,URINE NEG (NEG); PHENCYCLIDINE, URINE NEG (NEG)
[2017-06-17] VITALS (59 sets, daily range): BP systolic 70–196; BP diastolic 46–131; PULSE 80–131; TEMP 35.2–37.9; O2SAT 87–100
[2017-06-17] MEDS ORDERED: DEXTROSE 50% 50 ML SYR IV PRN
[2017-06-17] MEDS ORDERED: GLUCOSE 40% GEL 15 GM TUBE PO PRN
[2017-06-17] MEDS ORDERED: GLUCAGON FOR INJ 1 MG VIAL SQ PRN
[2017-06-17] MEDS ORDERED: GLUCOSE 10 TABS/TUBE PO PRN
[2017-06-17 00:14] LABS: ISTAT ARTERIAL BLOOD GAS HCO3 23 meq/L (19-24); ISTAT ARTERIAL BLOOD GAS PCO2 55 mmHg (35-46); ISTAT ARTERIAL BLOOD GAS PO2 69 mmHg (80-95); ISTAT ARTERIAL BLOOD GAS pH 7.23 (7.35-7.45); ISTAT CARBON DIOXIDE 25 mEq/l (24-31); ISTAT DELIVERY SYSTEM Ventilator; ISTAT FIO2 60 %; ISTAT PEEP 5; ISTAT RATE 18; ISTAT SITE L Radial; VE 7.9; Vt 450
[2017-06-17] MEDS: VANCOMYCIN INJ 1,400 MG in SODIUM CHLORIDE 0.9% 500ML 500 ML IV SCH ×2 (01:43→14:03)
[2017-06-17] MEDS: PIPERACILL/TAZOBAC IV 4.5 GM in DEXTROSE 5% 100ML 100 ML IV SCH ×3 (02:22→18:59)
[2017-06-17 05:49] LABS: COMPLETE YES; HEMATOCRIT 48.6 % (42-52); IG% 0.3 %; LYMPH % 4.7 %; LYMPH ABS # 0.41 K/uL (1.2-3.4); MEAN CELL VOLUME 100.2 fL (80-100); MEAN CORPUSCULAR HEMOGLOBIN 34.2 pg (25-34); MEAN CORPUSCULAR HGB CONC 34.2 g/dl (32-36); MEAN PLATELET VOLUME 11.6 fL (7.4-10.4); MONO % 4.8 %; NEUT % 90.2 %; PLATELET COUNT 119 K/uL (130-400); RED BLOOD COUNT 4.85 M/uL (4.7-6.1); WHITE BLOOD COUNT 8.77 K/uL (4.8-10.8)
--- NOTE | 2017-06-17 05:56 | History and Physical ---
History & Physical Date & Time of Service: Jun 17, 2017 at 05:42. The patient was seen and examined on 06/16/2017. Chief Complaint: Cardiopulmonary Arrest, [place] Primary Care Physician: No Doctor, Assigned History of Present Illness Source: family, hospital records, EMS The patient's a history of present illness severely limited due to his nonresponsive and intubated state. He is a 51-year-old male who is brought to emergency department by EMS after being found unresponsive approximately 1 hour prior to arrival with concerns regarding possible overdose and patient was intubated in the field. The patient has his own prescription for Valium, and reportedly had a prescription for oxycodone from a family member close by as well. EMS reports that upon arrival they applied an AED, he was found to be in PDA and no shock was advised. The patient was then placed on the Vu machine , and I brought to the emergency department for assessment. EMS reports that after they called command to the hospital, the patient developed a pulse and he was then intubated. He was noted to have a blood sugar in the 300s, and it hasn 't vomitus in his airway. EMS did report giving the patient 2 doses's of Narcan 0.4 mg with limited response. Past Medical/Surgical History Medical Problems: (1) Anemia Status: Chronic (2) H/O quadriplegia Status: Chronic (3) Testicular cancer Status: Chronic Family History Noncontributory Social History Smoking Status: Current Every Day Smoker Smokeless Tobacco Use: No Alcohol Use: heavy (Drinks Rum) Drug Use: none Marital Status: Occupational Status: disabled Immunizations History of Influenza Vaccine: Yes History of Tetanus Vaccine?: No History of Pneumococcal: No History of Hepatitis B Vaccine: No Multi-Drug Resistant Organisms History of MDRO: No Allergies Coded Allergies: Adhesives (Verified Adverse Reaction, Mild, LOCAL RASH, 08/29/14) Home Medications Scheduled Aspirin Enteric Coated (Ecotrin Or Generic), 81 MG PO DAILY Bacitracin/Polymyxin B (Polysporin), 1 DOSE TOP DIRECTED Bisacodyl (Magic Bullets), 10 MG RE MWF Calcium Carbonate-Vitamin D (Os-Cristian 500 Plus D), 1 TAB PO DAILY Diazepam (Valium), 5 MG PO BID Docusate Sodium (Docusate Sodium), 100 MG PO DAILY Multiple Vitamin (Multivitamin), 1 TAB PO DAILY Polyethylene Glycol 3350 (Miralax), 17 GM PO DAILY Testosterone (Androgel), 1 APPLN TOP DAILY DIRECTED Review of Systems Review of systems is limited due to patient's unresponsive state, and is as noted above in the history of present illness. His family did arrive at the emergency department, and were able to supply some additional history. Family reports that the patient was in his usual state of health last time he was seen by them earlier in the day, without any suggestion of chest pain, shortness of breath, fevers, chills, nausea, vomiting, diarrhea, constipation, headaches, lightheaded, dizziness. He has a known quadriplegic secondary to C5 trauma. Physical Exam Vital Signs Date Time Temp Pulse Resp B/P (MAP) Pulse Ox O2 Delivery O2 Flow Rate FiO2 06/17/17 05:24 60 06/17/17 04:00 60 06/17/17 04:00 98 Mechanical Ventilator 60 06/17/17 03:17 36.5 85 22 106/84 (91) 98 06/17/17 02:33 36.2 83 22 109/86 (91) 98 06/17/17 02:18 60 06/17/17 02:18 36.1 85 22 118/87 (95) 97 06/17/17 02:15 60 06/17/17 01:40 35.8 86 22 132/90 (110) 97 06/17/17 00:49 35.4 92 22 119/99 (101) 94 06/17/17 00:33 35.3 100 18 121/97 (106) 93 06/17/17 00:18 35.2 96 18 115/99 (108) 93 06/17/17 00:03 35.2 100 18 116/87 (103) 92 06/16/17 23:59 60 06/16/17 23:59 94 Mechanical Ventilator 60 06/16/17 23:49 35.1 105 18 99/82 (84) 93 06/16/17 23:33 35.1 108 18 101/77 (88) 94 06/16/17 23:24 35.0 103 21 137/96 98 Mechanical Ventilator 60 06/16/17 23:18 35.0 91 19 133/100 (108) 94 06/16/17 23:11 34.9 106 19 100/73 (78) 95 7/27/17 23:05 80 06/16/17 23:03 34.9 104 18 126/87 (98) 95 06/16/17 22:34 112 12 113/76 94 Mechanical Ventilator 06/16/17 21:41 105 12 106/81 94 Mechanical Ventilator 80 06/16/17 21:32 103 12 90/73 94 Mechanical Ventilator 80 06/16/17 21:24 99 12 98/72 95 Mechanical Ventilator 80 06/16/17 21:21 100 06/16/17 21:18 97 12 85/63 95 Mechanical Ventilator 80 06/16/17 21:13 100 12 106/70 95 Mechanical Ventilator 06/16/17 21:05 89 20 100/71 99 Mechanical Ventilator 06/16/17 20:56 86 12 88/74 99 Mechanical Ventilator 06/16/17 20:49 87 12 91/77 99 Mechanical Ventilator 100 06/16/17 20:21 109/81 06/16/17 20:20 86 12 100 06/16/17 20:16 79/52 06/16/17 20:15 95 12 100 06/16/17 20:12 113/91 06/16/17 20:10 90 12 100 06/16/17 20:09 123/88 06/16/17 20:06 152/110 06/16/17 20:05 89 12 100 06/16/17 20:01 128/94 06/16/17 20:00 88 12 100 06/16/17 19:56 143/94 06/16/17 19:55 86 12 100 06/16/17 19:51 130/89 06/16/17 19:50 87 12 100 06/16/17 19:46 147/105 06/16/17 19:45 83 12 100 06/16/17 19:41 155/97 06/16/17 19:40 82 12 100 06/16/17 19:36 145/101 06/16/17 19:35 81 12 100 06/16/17 19:31 146/96 06/16/17 19:30 83 12 100 06/16/17 19:26 143/101 06/16/17 19:25 81 12 100 06/16/17 19:21 125/84 06/16/17 19:20 83 12 100 06/16/17 19:17 78/48 06/16/17 19:15 85 12 100 06/16/17 19:10 87 12 100 06/16/17 19:06 71/53 06/16/17 19:05 90 0 100 06/16/17 19:04 82/51 06/16/17 19:01 74/59 06/16/17 19:00 91 0 100 06/16/17 18:51 92 85/53 100 06/16/17 18:30 85/56 06/16/17 18:26 34.6 100 86/66 100 Mechanical Ventilator 06/16/17 18:22 100 92/73 100 Mechanical Ventilator 06/16/17 18:21 100 06/16/17 18:19 100 Mechanical Ventilator 06/16/17 18:13 101 06/16/17 18:11 101 84/54 100 Mechanical Ventilator The patient is intubated, nonresponsive in spite of no sedation medications. HEENT--PERRL but small, mucous membranes and oropharynx dry. Neck-- no JVD or bruits, thyroid normal, trachea mildly deviated. No adenopathy. Heart--normal S1 and S2, no extra beats, no murmurs, rubs or gallops. Lungs--coarse breath sounds at the bases bilaterally. Abdomen--normal bowel sounds and soft, mildly tympanitic, no hernias or masses, no organomegaly. Extremities--no cyanosis, clubbing or edema. There are good distal pulses b/l. Dermatologic-- normal color, no abnormal lymph nodes, no rash. Neurologic--deferred Rheumatologic--deferred Psychiatric--nonresponsive and intubated Diagnostics Laboratory Results Results Past 24 Hours Test 06/16/17 18:15 06/16/17 18:19 06/16/17 18:22 06/16/17 20:06 Range/Units White Blood Count 11.03 4.8-10.8 K/uL Red Blood Count 4.98 4.7-6.1 M/uL Hemoglobin 16.8 14.0-18.0 g/dL Hematocrit 51.7 42-52 % Mean Corpuscular Volume 103.8 80-100 fL Mean Corpuscular Hemoglobin 33.7 25-34 pg Mean Corpuscular Hemoglobin Concent 32.5 32-36 g/dl Platelet Count 124 130-400 K/uL Mean Platelet Volume 11.7 7.4-10.4 fL Neutrophils (%) (Auto) 86.6 % Lymphocytes (%) (Auto) 10.2 % Monocytes (%) (Auto) 1.1 % Eosinophils (%) (Auto) 0.7 % Basophils (%) (Auto) 0.1 % Neutrophils # (Auto) 9.55 1.4-6.5 K/uL Lymphocytes # (Auto) 1.13 1.2-3.4 K/uL Monocytes # (Auto) 0.12 0.11-0.59 K/uL Eosinophils # (Auto) 0.08 0-0.5 K/uL Basophils # (Auto) 0.01 0-0.2 K/uL RDW Standard Deviation 51.0 36.4-46.3 fL RDW Coefficient of Variation 13.4 11.5-14.5 % Immature Granulocyte % (Auto) 1.3 % Immature Granulocyte # (Auto) 0.14 0.00-0.02 K/uL Prothrombin Time 13.3 9.0-12.0 SECONDS Prothromb Time International Ratio 1.2 0.9-1.1 Activated Partial Thromboplast Time 32.6 21.0-31.0 SECONDS Partial Thromboplastin Ratio 1.3 Sodium Level 134 136-145 mmol/L Potassium Level 4.7 3.5-5.1 mmol/L Chloride Level 99 98-107 mmol/L Carbon Dioxide Level 25 21-32 mmol/L Anion Gap 10.0 19.0 16-25 mmol/L Blood Urea Nitrogen 7 7-18 mg/dl Creatinine 1.20 0.60-1.40 mg/dl Estimated GFR () 81.8 Estimated GFR (Non- 70.6 BUN/Creatinine Ratio 5.5 10-20 Random Glucose 320 70-99 mg/dl Calcium Level 7.9 8.5-10.1 mg/dl Magnesium Level 2.3 1.8-2.4 mg/dl Total Bilirubin 0.3 0.2-1 mg/dl Direct Bilirubin 0-0.2 mg/dl Aspartate Amino Transf (AST/SGOT) 48 15-37 U/L Alanine Aminotransferase (ALT/SGPT) 40 12-78 U/L Alkaline Phosphatase 86 45-117 U/L Total Creatine Kinase 136 39-308 U/L Creatine Kinase MB 3.1 0.5-3.6 ng/ml Creatine Kinase MB Ratio 2.3 0-3.0 Total Protein 6.3 6.4-8.2 gm/dl Albumin 3.1 3.4-5.0 gm/dl Beta-Hydroxybutyric Acid 2.28 0.2-2.81 mg/dL Chemistry Specimen Hemolysis Bedside Hemoglobin 18.0 15.6 14.0-18.0 g/dl Bedside Hematocrit 53 46 42-52 % Bedside Sodium 134 132 135-144 mEq/L Bedside Potassium 4.7 3.8 3.3-5.0 mEq/L Bedside Chloride 96 101-112 mEq/L Bedside Total CO2 25 24-31 mEq/l Bedside Blood Urea Nitrogen 6 7-18 mg/dl Bedside Creatinine 0.9 0.6-1.3 mg/dl Bedside Glucose (other) 329 70-99 mg/dl Bedside Ionized Calcium (Mustapha) 1.13 1.12-1.32 mmol/l Bedside Blood Gas pH (LAB) 7.08 7.35-7.45 Bedside Blood Gas pCO2 (LAB) 75 35-46 mmHg Bedside Blood Gas pO2 (LAB) 276 80-95 mmHg Bedside Blood Gas HCO3 (LAB) 22 19-24 meq/L Bedside Blood Gas Total CO2 25 24-31 mEq/l Bedside Blood Gas Base Excess (LAB) -8.0 -9-1.8 meq/L Bedside Blood Gas O2 Saturation 100.0 90-95 % Venous Blood pH 7.09 7.36-7.41 Venous Blood Partial Pressure CO2 85 38.0-50.0 mmHg Venous Blood Partial Pressure O2 62 mmHg Venous Blood HCO3 25 mmol/L Venous Blood Oxygen Saturation 89.1 % Venous Blood Base Excess -6.9 mmol/L Test 06/16/17 20:53 06/16/17 23:10 06/16/17 23:19 06/17/17 00:02 Range/Units Urine Color YELLOW Urine Appearance CLEAR CLEAR Urine pH 5.0 4.5-7.5 Urine Specific [place] > 1.045 1.000-1.030 Urine Protein 1+ NEG Urine Glucose (UA) 3+ NEG Urine Ketones NEG NEG Urine Occult Blood TRACE NEG Urine Nitrite POS NEG Urine Bilirubin NEG NEG Urine Urobilinogen NEG NEG Urine Leukocyte Esterase SMALL NEG Urine WBC (Auto) 10-30 0-5 /hpf Urine RBC (Auto) 0-4 0-4 /hpf Urine Hyaline Casts (Auto) 5-10 0-5 /lpf Urine Epithelial Cells (Auto) 5-10 0-5 /lpf Urine Bacteria (Auto) 4+ NEG Urine Opiates Screen POS NEG Urine Methadone, Qualitative NEG NEG Urine Barbiturates NEG NEG Urine Phencyclidine (PCP) Level NEG NEG Ur Amphetamine/Methamphetamine NEG NEG MDMA (Ecstasy) Screen NEG NEG Urine Benzodiazepines Screen POS NEG Urine Cocaine Metabolite NEG NEG Urine Marijuana (THC) NEG NEG Lactic Acid Level 2.5 0.4-2.0 mmol/L Troponin I 0.148 0-0.045 ng/ml Ethyl Alcohol mg/dL < 3.0 0-3 mg/dl Bedside Glucose (other) 153 70-99 mg/dl Blood Gas Sample Site L Radial Bedside Blood Gas pH (LAB) 7.23 7.35-7.45 Bedside Blood Gas pCO2 (LAB) 55 35-46 mmHg Bedside Blood Gas pO2 (LAB) 69 80-95 mmHg Bedside Blood Gas HCO3 (LAB) 23 19-24 meq/L Bedside Blood Gas Total CO2 25 24-31 mEq/l Bedside Blood Gas Base Excess (LAB) -5.0 -9-1.8 meq/L Bedside Blood Gas O2 Saturation 90.0 90-95 % Radu Test NA Oxygen Delivery Device Ventilator Bedside Oxygen Rate (breaths/min) 18 Blood Gas Minute Ventilation 7.9 Bedside FiO2 60 % Blood Gas Tidal Volume 450 Blood Gas PEEP 5 Test 06/17/17 05:36 Range/Units Microbiology Results 06/16/17 Blood Culture, Received Pending 06/16/17 Blood Culture, Received Pending 06/16/17 MRSA DNA Surveillance Screen - Final, Complete Specimen Negative for MRSA by DNA Probe 06/17/17 Gram Stain - Preliminary, Resulted 06/17/17 Sputum Culture, Resulted Pending 06/16/17 Urine Culture, Received Pending Diagnostic Radiology Patient Name: COLLEEN MARRUFO Unit Number: [id number] Dictated: 06/16/171847 Transcribed: 06/16/171847 JRB Printed Date/Time: [~ rep prt dt]/[~ rep prt tm] [~ rep ct labl] - [~ rep ct ivnm] [facility] [place] [address] Dictated: 06/16/171847 Transcribed: 06/16/171847 JRB Printed Date/Time: [~ rep prt dt]/[~ rep prt tm] [~ rep ct labl] - [~ rep ct ivnm] HEAD WITHOUT CONTRAST (CT) CLINICAL HISTORY: 51 years-old Male with s/p cardiac arrest. TECHNIQUE: Multiple axial CT images of the head were obtained without contrast. A dose lowering technique was utilized adhering to the principles of ALARA. CT DOSE: 741.55 mGycm COMPARISON: None. FINDINGS: No acute intracranial hemorrhage, midline shift, mass, large territorial ischemia or abnormal extra-axial collection. There is mild cerebral atrophy, greater than expected for patient's stated age. Feliz-white interface is maintained. Basal cisterns appear normal. There is an ill-defined area of low-attenuation within the periventricular white matter of the left frontal hemisphere seen on image 17 with additional scattered less distinct areas of periventricular white matter low attenuation. No comparison is available to assess for chronicity. The calvarium is intact. The mastoid air cells, and middle ear cavities are clear. There is moderate mucosal thickening of the nasopharynx, sphenoid, maxillary and ethmoid sinuses with associated air-fluid levels. Air-fluid level also noted within the right frontal sinus. Soft tissues are unremarkable. Orbits are symmetric. IMPRESSION: 1. No acute intracranial hemorrhage, midline shift or territorial ischemia. 2. Scattered areas of low-attenuation within the periventricular white matter of the cerebral hemispheres bilaterally are nonspecific findings and may reflect chronic microvascular ischemic changes with mild cerebral atrophy, mildly advanced for patient's stated age. 3. Acute pansinusitis. The above report was generated using voice recognition software. It may contain grammatical, syntax or spelling errors. Electronically signed by: Serafin Keyes M.D. 06/16/2017 6:53 PM Dictated Date/Time: 06/16/2017 6:48 PM The status of this report is Signed. Draft = Not yet reviewed or approved by Radiologist. Signed = Reviewed and approved by Radiologist. <AttendingPhy></AttendingPhy> <FamilyPhy>No Doctor, Assigned</FamilyPhy> < PrimaryPhy>No Doctor, Assigned</PrimaryPhy> <UnitNumber>[id number]</UnitNumber> <VisitNumber>[id number]</VisitNumber> <PatientName>COLLEEN MARRUFO</ PatientName> <DateOfBirth>1965</DateOfBirth> <Location>[facility]</Location> < ServiceDate>06/16/17</ServiceDate> <MNE>ESINDI</MNE> <OrderingPhy>Federica Stoll M.D.</OrderingPhy> <OrderingPhyMNE>f rep ord dr arrington</OrderingPhyMNE> < DictatingPhyMNE>f rep dict dr arrington</DictatingPhyMNE> <CCListMNE>f rep ct mne</ CCListMNE> <AdmittingPhyMNE>f pt admit dr arrington</AdmittingPhyMNE> <AttendingPhyMNE >f pt attend dr arrington</AttendingPhyMNE> <ConsultingPhyMNE>f pt consult dr arrington</ConsultingPhyMNE> <FamilyPhyMNE>f pt fam dr arrington</FamilyPhyMNE> <OtherPhyMNE>f pt other dr arrington</OtherPhyMNE> < PrimaryPhyMNE>f pt prim care dr arrington</PrimaryPhyMNE> <ReferringPhyMNE>f pt referring dr arrington</ReferringPhyMNE> Patient Name: COLLEEN MARRUFO Unit Number: [id number] Dictated: 06/16/171849 Transcribed: 06/16/171849 JA Printed Date/Time: [~ rep prt dt]/[~ rep prt tm] [~ rep ct labl] - [~ rep ct ivnm] [facility] [place] [address] Dictated: 06/16/171849 Transcribed: 06/16/171849 JA Printed Date/Time: [~ rep prt dt]/[~ rep prt tm] [~ rep ct labl] - [~ rep ct ivnm] [~ rep ct add3]] CT ANGIOGRAPHY OF THE CHEST, PULMONARY EMBOLUS PROTOCOL CLINICAL HISTORY: Status post cardiac arrest. COMPARISON STUDY: Chest CT July 06, 2013. TECHNIQUE: Following IV administration of 109 mL of Optiray-320, helical axial images of the chest were obtained utilizing the pulmonary embolus protocol. Maximal intensity projections and sagittal and coronal reformats were viewed on an independent 3D workstation. IV contrast was administered without complication. A dose lowering technique was utilized adhering to the principles of ALARA. CT DOSE: 570.52 mGycm FINDINGS: The tip of the endotracheal tube is 2 cm above the milena. No pulmonary emboli are identified although the segmental and subsegmental pulmonary arteries are suboptimally assessed due to respiratory motion. There is mild cardiomegaly. There is no evidence of thoracic aortic dissection. No pneumothorax is present. There are trace bilateral pleural effusions. Note is made of asymmetric enlargement and infiltration involving the visualized portions of the right strap muscles of the neck as well as the sternocleidomastoid muscle. Infiltration extends into the upper mediastinum. This is slightly hyperdense and favors hemorrhage. No dissection within the major vessels is identified on this examination. Extensive secretions are noted throughout the airways. There is dependent airspace opacity within the upper and lower lobes with multifocal groundglass and tree-in-bud opacities throughout the lungs. No acute rib fractures are identified. There is minimal infiltration within the alberto hepatis and adjacent to the gallbladder. IMPRESSION: 1. No pulmonary emboli identified although segmental and subsegmental pulmonary arteries are suboptimally assessed due to respiratory motion. No thoracic aortic dissection. 2. Satisfactory positioning of endotracheal tube. 3. Asymmetric enlargement and infiltration involving visualized portions of the right strap muscles of the neck and sternocleidomastoid muscle with mild tracheal displacement. This finding is partially imaged and suggests a moderate sized hematoma. An inflammatory process could appear similar although is considered less likely. 4. Consolidation within the dependent aspects of both lungs with scattered tree-in-bud and groundglass opacities throughout both lungs with extensive secretions within the airways. The findings suggest aspiration. 5. Mild nonspecific pericholecystic infiltration and infiltration within the alberto hepatis. Findings discussed with Dr. Stoll at time of dictation. Electronically signed by: Munir Sanchez M.D. 06/16/2017 7:13 PM Dictated Date/Time: 06/16/2017 6:50 PM The status of this report is Signed. Draft = Not yet reviewed or approved by Radiologist. Signed = Reviewed and approved by Radiologist. <AttendingPhy></AttendingPhy> <FamilyPhy>No Doctor, Assigned</FamilyPhy> < PrimaryPhy>No Doctor, Assigned</PrimaryPhy> <UnitNumber>[id number]</UnitNumber> <VisitNumber>[id number]</VisitNumber> <PatientName>COLLEEN MARRUFO</ PatientName> <DateOfBirth>1965</DateOfBirth> <Location>C.ED</Location> < ServiceDate>06/16/17</ServiceDate> <MNE>ESINDI</MNE> <OrderingPhy>Federica Stoll M.D.</OrderingPhy> <OrderingPhyMNE>f rep ord dr arrington</OrderingPhyMNE> < DictatingPhyMNE>f rep dict dr arrington</DictatingPhyMNE> <CCListMNE>f rep ct mne</ CCListMNE> <AdmittingPhyMNE>f pt admit dr arrington</AdmittingPhyMNE> <AttendingPhyMNE >f pt attend dr arrington</AttendingPhyMNE> <ConsultingPhyMNE>f pt consult dr arrington</ConsultingPhyMNE> <FamilyPhyMNE>f pt fam dr arrington</FamilyPhyMNE> <OtherPhyMNE>f pt other dr arrington</OtherPhyMNE> < PrimaryPhyMNE>f pt prim care dr arrington</PrimaryPhyMNE> <ReferringPhyMNE>f pt referring dr arrington</ReferringPhyMNE> Patient Name: COLLEEN MARRUFO Unit Number: [id number] Dictated: 06/16/171899 Transcribed: 06/16/171899 JRS[place]walk Printed Date/Time: [~ rep prt dt]/[~ rep prt tm] [~ rep ct labl] - [~ rep ct ivnm] [facility] [place] [address] Dictated: 06/16/171899 Transcribed: 06/16/171899 JRB Printed Date/Time: [~ rep prt dt]/[~ rep prt tm] [~ rep ct labl] - [~ rep ct ivnm] CHEST ONE VIEW PORTABLE HISTORY: 51 years-old Male respiratory failure. Status post intubation. COMPARISON: Chest radiograph 08/01/2012, CTA of the chest 06/16/2017 TECHNIQUE: Supine AP view of the chest FINDINGS: Endotracheal tube terminates 3.4 cm superior to the level of the milena. Cardiac silhouette is enlarged with bilateral upper lobe and perihilar consolidative opacities. There is mild pulmonary vascular congestion. The lungs are hypoinflated without pneumothorax or large pleural effusion identified. Fusion hardware involves the lower cervical spine. There is increased soft tissue prominence of the right lower neck. IMPRESSION: 1. Satisfactory position of endotracheal tube. 2. Cardiomegaly with mild pulmonary vascular congestion, perihilar and upper lobe alveolar opacities suggesting aspiration pneumonitis, atelectasis or pulmonary edema. 3. Asymmetric soft tissue prominence of the right lateral neck soft tissues is better evaluated on comparison CTA of same day. The above report was generated using voice recognition software. It may contain grammatical, syntax or spelling errors. Electronically signed by: Serafin Keyes M.D. 06/16/2017 7:03 PM Dictated Date/Time: 06/16/2017 7:00 PM The status of this report is Signed. Draft = Not yet reviewed or approved by Radiologist. Signed = Reviewed and approved by Radiologist. <AttendingPhy></AttendingPhy> <FamilyPhy>No Doctor, Assigned</FamilyPhy> < PrimaryPhy>No Doctor, Assigned</PrimaryPhy> <UnitNumber>[id number]</UnitNumber> <VisitNumber>[id number]</VisitNumber> <PatientName>COLLEEN MARRUFO</ PatientName> <DateOfBirth>1965</DateOfBirth> <Location>C.ED</Location> < ServiceDate>06/16/17</ServiceDate> <MNE>ESINDI</MNE> <OrderingPhy>Federica Stoll M.D.</OrderingPhy> <OrderingPhyMNE>f rep ord dr arrington</OrderingPhyMNE> < DictatingPhyMNE>f rep dict dr arrington</DictatingPhyMNE> <CCListMNE>f rep ct makie</ CCListMNE> <AdmittingPhyMNE>f pt admit dr arrington</AdmittingPhyMNE> <AttendingPhyMNE >f pt attend dr arrington</AttendingPhyMNE> <ConsultingPhyMNE>f pt consult dr arrington</ConsultingPhyMNE> <FamilyPhyMNE>f pt fam dr arrington</FamilyPhyMNE> <OtherPhyMNE>f pt other dr arrington</OtherPhyMNE> < PrimaryPhyMNE>f pt prim care dr arrington</PrimaryPhyMNE> <ReferringPhyMNE>f pt referring dr arrington</ReferringPhyMNE> EKG EKG shows sinus tachycardia at 101 bpm, long QT, nonspecific T-wave changes inferiorly. Impression Assessment and Plan Status post cardiopulmonary arrest/intubated for airway protection/aspiration pneumonia--patient will be admitted to the ICU, for serial cardiac enzymes, cardiac rhythm monitoring and a 2-D echocardiogram with Dopplers. Continue ventilator at current settings with repeat ABG in 1 hour, and will have further modifications of ventilator following ABG results. Place on normal saline with KCl 20 mEq at [address] on vancomycin IV per her pharmacy kinetics monitoring, and Zosyn 4.5 g IV every 8 hours. Follow serial chest x- rays, EKGs, CBCD, chemistry profile and magnesium levels. Continue levophed with target MAP to be greater than or equal to 80. Elevated troponin--likely secondary to use of Vu machine will follow serial cardiac enzymes as noted, and order an echocardiogram as noted. Presumptive drug overdose--I have ordered a urine drug screen and alcohol level. Marine Fitter has been notified and seen the patient while in the ED. Level of Care Critical Care Advanced Directives Existing Advance Directive: Yes Existing Living Will: Yes Existing Power of Plastics Fabrication Supervisor: Yes Resuscitation Status DO NOT RESUSCITATE VTE Prophylaxis VTE Risk Assessment Done? Y/N: Yes Risk Level: High Given or contraindicated: SCD's Note Total Time: Critical Care 30 - 74 minutes
[2017-06-17 05:58] LABS: INR 1.2 (0.9-1.1); PARTIAL THROMBOPLASTIN RATIO 1.1; PROTHROMBIN TIME (PATIENT) 13.2 SECONDS (9.0-12.0)
[2017-06-17 06:34] LABS: BUN/CREATININE RATIO 8.8 (10-20); CALCIUM 7.2 mg/dl (8.5-10.1); CKMB/CK RATIO 4.7 (0-3.0); CREATININE 0.69 mg/dl (0.60-1.40); MAGNESIUM 1.9 mg/dl (1.8-2.4); PHOSPHORUS 3.2 mg/dl (2.5-4.9); POTASSIUM 5.5 mmol/L (3.5-5.1)
[2017-06-17] MEDS ORDERED: INSULIN ASPART 100 UNITS/ML 3 ML PEN SC SCH (06:45)
[2017-06-17] MEDS ORDERED: NURSING VERBAL MED ORDER ONE ×2 (07:15→08:00)
--- NOTE | 2017-06-17 07:19 | DIAGNOSTIC IMAGING REPORT ---
CHEST ONE VIEW PORTABLE CLINICAL HISTORY: B/L ASPIRATION PNEUMONIA, ON THE VENTILATOR COMPARISON STUDY: Chest radiograph June 16, 2017 6:51 PM. FINDINGS: The tip of the endotracheal tube is 7 cm above the milena. The tip of the nasogastric tube is within the gastric cardia. Dense right mid and lower lung airspace opacity has progressed. Right upper lung airspace opacity has slightly improved. There is left perihilar opacity. A small right pleural effusion is present. No pneumothorax is identified. Upper mediastinal widening with widening of the right paratracheal stripe is again noted. IMPRESSION: 1. Tip of endotracheal tube 7 cm above the milena. 2. Progression of bilateral airspace opacities which suggests pneumonia, likely on the basis of aspiration. 3. Small right pleural effusion. No pneumothorax. 4. No change in upper mediastinal widening which was shown to be due to a suspected hematoma on chest CT performed June 16, 2017. Electronically signed by: Munir Sanchez M.D. 06/17/2017 7:18 AM Dictated Date/Time: 06/17/2017 7:15 AM
[2017-06-17] MEDS ORDERED: ACETAMINOPHEN IV 1000MG/100ML IV SCH (08:00)
[2017-06-17 08:26] LABS: ISTAT ALLEN TEST Pass; ISTAT ARTERIAL BLOOD GAS HCO3 23 meq/L (19-24); ISTAT ARTERIAL BLOOD GAS PCO2 46 mmHg (35-46); ISTAT ARTERIAL BLOOD GAS PO2 79 mmHg (80-95); ISTAT CARBON DIOXIDE 24 mEq/l (24-31); ISTAT DELIVERY SYSTEM Ventilator; ISTAT FIO2 60 %; ISTAT PEEP 5; ISTAT RATE 22; ISTAT SITE R Radial; VE 10.7; Vt 500
[2017-06-17] MEDS ORDERED: LANSOPRAZOLE SOLUTAB 30 MG PO ONE (08:43)
[2017-06-17 08:51] LABS: ESTIMATED AVERAGE GLUCOSE 91 mg/dl; HA1C FLAG Normal (Normal)
[2017-06-17] MEDS ORDERED: POLYETHYLENE (MIRALAX) 17 GM PACK PO ONE (09:00)
[2017-06-17] MEDS: SODIUM CHLORIDE 0.9% 1000ML 1,000 ML IV SCH ×2 (09:01→17:42)
--- NOTE | 2017-06-17 09:22 | DIAGNOSTIC IMAGING REPORT ---
CHEST ONE VIEW PORTABLE CLINICAL HISTORY: ET tube repositioned COMPARISON STUDY: Chest radiograph June 17, 2017 at 6:51 AM. FINDINGS: The tip of the endotracheal tube is 4.3 cm above the milena. Small right and trace left pleural effusions are present. Bilateral airspace opacities persists with dense right mid and lower lung consolidation. No pneumothorax is identified. The tip of the nasogastric tube is below the lower aspect of this image but at least within the proximal stomach. Cervical spine fusions are noted as well as an old left clavicular fracture. IMPRESSION: 1. Satisfactory positioning of endotracheal and nasogastric tubes. 2. Persistent bilateral airspace opacities with dense right lung consolidation suggestive of pneumonia. 3. Small right and trace left pleural effusions. No pneumothorax. Electronically signed by: Munir Sanchez M.D. 06/17/2017 9:21 AM Dictated Date/Time: 06/17/2017 9:19 AM
[2017-06-17] MEDS: THIAMINE HCL 100 MG TAB PO SCH (09:24)
[2017-06-17] MEDS: BISACODYL 10 MG SUPP PR SCH (09:26)
[2017-06-17] MEDS: INSULIN ASPART 100 UNITS/ML 3 ML PEN SC SCH ×2 (12:00→17:42)
--- NOTE | 2017-06-17 15:11 | ECHOCARDIOGRAM REPORT ---
*NOTICE TO RECEIVING [employer] This information is strictly Confidential and protected under [place] law. [place] law prohibits you from making any further disclosure of this information unless further disclosure is expressly permitted by the written consent of the person to whom it pertains or is authorized by law. A general authorization for the release of medical or other information is not sufficient for this purpose. Hospital accepts no responsibility if the information is made available to any other person, INCLUDING THE PATIENT. Interpretation Summary * Name: COLLEEN MARRUFO Study Date: 06/17/2017 06:28 AM BP: 70/46 mmHg * Patient Location: .MSICU\S\E104\S\1 HR: 99 * : 1965 (M/d/yyyy) Gender: Male Height: 71 in * Age: 51 yrs Ethnicity: [place] Weight: 212 lb * Ordering Physician: Primitivo Farley * Referring Physician: Self, Referred * Performed By: Marilyn Arizmendi RCS * * Reason For Study: ACUTE RESPIRATORY FAILURE / CARDIOPULMONARY ARREST * BSA: 2.2 m2 * -- Conclusions -- * 1. Severely limited study despite Definity contrast. * 2. Grossly normal LV size and function. Mild concentric LVH. LVEF 60-65%. No apparent regional wall motion abnormalities. * 3. RV not well visualized. * 4. No gross valve pathology. * 5. No prior studies for comparison. Procedure Details * A complete two-dimensional transthoracic echocardiogram was performed (2D, M-mode, Doppler and color flow Doppler). * The study was technically difficult. * There were technical limitations due to patient'ssupine positioning while on mechanical ventilation * A contrast injection of Definity was performed to improve assessment of LV function. * Contrast was injected into an intravenous site in the right arm. * One vial of Definity ultrasound contrast was diluted in normal saline to a total volume of 10 ml. A total of '2' ml of solution was administered during imaging. * Lot # [id number] of Definity utilized for procedure. * Expiration date JUL 08. * The attending nurse who injected the contrast agent was HILARY MURPHY, RN. Left Ventricle * The left ventricle is grossly normal size. * There is mild concentric left ventricular hypertrophy. * Ejection Fraction = 60-65%. * No regional wall motion abnormalities noted. Right Ventricle * The right ventricle is not well visualized. Atria * The left atrial size is normal. * Right atrium not well visualized. Mitral Valve * The mitral valve is grossly normal. * There is no mitral valve stenosis. * Significant mitral regurgitation is absent. Tricuspid Valve * The tricuspid valve is not well visualized. Aortic Valve * The aortic valve opens well. * No hemodynamically significant valvular aortic stenosis. * There is no significant aortic regurgitation. Pulmonic Valve * The pulmonic valve is not well visualized. Great Vessels * The aortic root and proximal ascending aorta are normal sized. Pericardium/Pleural * There is no pericardial effusion. MMode 2D Measurements and Calculations IVSd 1.2 cm IVSs 1.6 cm LVIDd 3.1 cm LVIDs 1.9 cm LVPWd 0.98 cm LVPWs 1.3 cm IVS/LVPW 1.2 FS 37.3 % EDV(Teich) 37.0 ml ESV(Teich) 11.5 ml EF(Teich) 68.9 % EDV(cubed) 28.9 ml ESV(cubed) 7.1 ml EF(cubed) 75.4 % % IVS thick 32.2 % % LVPW thick 35.1 % LV mass(C)d 95.6 grams LV mass(C)dI 44.2 grams/m\S\2 LV mass(C)s 87.3 grams LV mass(C)sI 40.4 grams/m\S\2 SV(Teich) 25.5 ml SI(Teich) 11.8 ml/m\S\2 SV(cubed) 21.8 ml SI(cubed) 10.1 ml/m\S\2 Ao root diam 3.3 cm Ao root area 8.4 cm\S\2 LVOT diam 2.0 cm LVOT area 3.2 cm\S\2 Doppler Measurements and Calculations MV E max charlie 88.3 cm/sec MV A max charlie 88.3 cm/sec MV E/A 1.0 MV dec time 0.27 sec Ao V2 max 111.3 cm/sec Ao max PG 5.0 mmHg Ao max PG (full) 1.7 mmHg NORMA(V,A) 2.6 cm\S\2 NORMA(V,D) 2.6 cm\S\2 LV V1 max PG 3.2 mmHg LV V1 max 89.7 cm/sec
[2017-06-17] MEDS ORDERED: NOREPINEPHRINE BIT INJ 8 MG in DEXTROSE 5% 500ML 500 ML IV PRN (17:15)
--- NOTE | 2017-06-17 17:57 | Critical Care Progress Note ---
Critical Care Progress Note Date of Service Jun 17, 2017. ICU Day ICU Day Number: [address] Duran Subjective Patient woke up overnight, following commands, interacting well, answering yes/ no questions CPAP trial today with high pressure support, did poorly though. Still requiring 60% O2. Objective General: Patient is intubated, comfortable HEENT: NC/AT, ET tube, OG tube Neck: Mild basal fullness, small ecchymotic area over the right side Lungs: Coarse breath sounds, b/l Chest: upper sternal ecchymosis, mild excoriation CVS: S1S2 regular Abd: Soft,obese Ext: No edema, contracted extremities Ext: moves upper, plegic lower. Tracks me in the room appropriately, communicates yes/no Current SOFA Score SOFA Score Response (Comments) Value PaO2/FiO2 (mmHg) < 200 3 SaO2 / FIO2 142 - 220 2 Platelets (x10) < 150 1 Bilirubin (mg/dL) < 1.2 0 [place] Coma Score 10 - 12 2 Level of Hypotension Dopamine < 5 mcq / dobutamine 2 Creatinine (mg/dL) < 1.2 0 Total 10 Assessment & Plan 51 year old male with quadriplegia, s/p cardiac arrests secondary to suspected intentional overdose, intubated, with aspiration pneumonia. 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 Not completely ruled out, but he had a remarkable improvement. Reinstate Valium eventually Patient denies any discomfort. Start sedation as needed, prefer Precedex Thiamine Pulmonary: Worsening pneumonia, secondary to massive aspiration Not an extubation candidate at this point, did poorly on CPAP, has a very weak cough, is on high FiO2. I am concerned that he will not recover easily and will require tracheostomy, which I understand from the mother that will be refused. Continue Abx Elevate head Hematoma of the neck. Likely secondary to compressions, or difficult intubation (he has rods in the neck). Just monitor, does not seem to be expanding. Will repeat the CT tomorrow. Marked the margins of the right neck ecchymosis CVS: Titrate down pressors as tolerated Continue IV fluids, NS @ 100 ml/hr Echo reviewed, unremarkable Mild troponin elevation, not concerning for PR Renal/metabolic: Continue IV fluids Mild lactic acidosis, should clear GI: Start tube feedings today Heme: Start folci acid, has macrocytosis in the setting of alcohol abuse DVT prophylaxis: No anticoagulation secondary to neck hematoma. ICDs Critical care time spent with the patient and the family, reviewing the chart, greater than 40 minutes Consults & Procedures Consultants: Critical care Procedures: Femoral TLC 06/17 Intubated in the field 06/17 OGT 06/17 Data Medications: Current Inpatient Medications Medications (Trade) Dose Ordered Sig/Christie Route Start Time Stop Time Status Last Admin Dose Admin Ioversol (Optiray 320) 100 ml UD PRN IV 06/16/17 18:30 06/20/17 18:29 Lorazepam (Ativan Inj) 0.5 mg Q4H PRN IV 06/16/17 22:15 07/16/17 22:14 Norepinephrine Bitartrate 8 mg/ Dextrose 508 ml @ 0 mls/hr Q0M PRN IV 06/16/17 22:06 07/16/17 22:05 06/17/17 13:37 20.5 MLS/HR Piperacillin Sod/ Tazobactam Sod 4.5 gm/Dextrose 120 ml @ 30 mls/hr Q8H IV 06/17/17 03:00 06/23/17 18:59 06/17/17 12:21 30 MLS/HR Vancomycin HCl (Consult) 1 ea UD PRN N/A 06/16/17 22:45 06/26/17 22:44 Piperacillin Sod/ Tazobactam Sod (Consult) 1 ea UD PRN N/A 06/16/17 22:45 06/26/17 22:44 Lorazepam 0.5 mg/ Syringe 1 ml @ 1 mls/min Q4H PRN IV 06/16/17 23:00 07/16/17 22:59 Vancomycin HCl 1400 mg/Sodium Chloride 528 ml @ 200 mls/hr Q12@0200,1400 IV 06/17/17 02:00 06/24/17 01:59 06/17/17 14:03 200 MLS/HR Glucose (Glucose 40% Gel) UD PRN PO 06/17/17 00:00 07/17/17 00:00 Glucose (Glucose Chew Tab) 1 tabs UD PRN PO 06/17/17 00:00 07/17/17 00:00 Dextrose (Dextrose 50% 50ML Syringe) 50 ml UD PRN IV 06/17/17 00:00 07/17/17 00:00 Glucagon (Glucagon Inj) 1 mg UD PRN SQ 06/17/17 00:00 07/17/17 00:00 Heparin Sodium (Porcine) (Heparin 10 Unit/ ml 5 ml Flush) 5 ml PRN PRN FLUSH 06/17/17 00:30 07/17/17 00:29 Sodium Chloride 1,000 ml @ 100 mls/hr Q10H IV 06/17/17 07:30 07/17/17 07:29 06/17/17 09:01 100 MLS/HR Bisacodyl (Dulcolax Supp) 10 mg MoWeFr@0900 NV 06/17/17 09:00 07/17/17 08:59 06/17/17 09:26 10 MG Polyethylene (Miralax Powder Packet) 17 gm DAILY PO 06/18/17 09:00 07/18/17 08:59 Lansoprazole (Prevacid Solutab) 30 mg QAM PO 06/18/17 09:00 07/18/17 08:59 Thiamine HCl (Vitamin B-1 Tab) 100 mg QAM PO 06/17/17 09:00 07/17/17 08:59 06/17/17 09:24 100 MG Folic Acid (Folvite Tab) 1 mg QAM PO 06/17/17 09:00 07/17/17 08:59 06/17/17 09:24 1 MG Insulin Aspart (novoLOG ASPART) SLIDING SCALE If C... Q6 SC 06/17/17 12:00 07/17/17 11:59 I & O: 24-Hour Column 06/18/17 08:00 Intake Total 1302 ml Output Total 950 ml Balance 352 ml Vital Signs: Date Time Temp Pulse Resp B/P (MAP) Pulse Ox O2 Delivery O2 Flow Rate FiO2 06/17/17 16:18 37.3 86 22 120/55 (76) 100 Mechanical Ventilator 60 06/17/17 16:06 100 Mechanical Ventilator 60 06/17/17 16:06 60 06/17/17 16:03 37.3 84 22 128/83 (98) 100 Mechanical Ventilator 60 06/17/17 15:48 37.4 86 22 124/86 (99) 99 Mechanical Ventilator 60 06/17/17 15:33 37.4 87 22 135/101 (112) 100 Mechanical Ventilator 60 06/17/17 15:18 37.4 87 22 125/77 (93) 99 Mechanical Ventilator 60 06/17/17 15:03 37.5 89 22 118/82 (94) 99 Mechanical Ventilator 60 06/17/17 14:25 60 06/17/17 14:00 37.8 115 22 102/74 (83) 98 Mechanical Ventilator 60 06/17/17 12:00 Mechanical Ventilator 60 06/17/17 12:00 60 06/17/17 12:00 37.8 109 22 130/92 (105) 100 Mechanical Ventilator 60 06/17/17 11:38 60 06/17/17 10:00 37.7 99 22 109/90 (96) 99 Mechanical Ventilator 60 06/17/17 08:00 37.9 95 22 115/88 (97) 100 Mechanical Ventilator 60 06/17/17 08:00 Mechanical Ventilator 60 06/17/17 08:00 Mechanical Ventilator 60 06/17/17 08:00 60 06/17/17 07:40 60 06/17/17 06:35 37.6 97 22 70/46 (54) 96 06/17/17 06:33 37.6 95 22 77/53 (58) 98 06/17/17 06:03 37.5 89 22 106/80 (86) 98 06/17/17 05:33 37.3 87 22 99/68 (86) 97 06/17/17 05:24 60 06/17/17 05:03 37.1 90 22 95/72 (79) 97 06/17/17 04:33 37.0 91 22 99/76 (83) 98 06/17/17 04:03 36.8 88 22 115/80 (85) 97 06/17/17 04:00 60 06/17/17 04:00 98 Mechanical Ventilator 60 06/17/17 03:33 36.6 88 22 110/87 (102) 96 06/17/17 03:17 36.5 85 22 106/84 (91) 98 06/17/17 02:33 36.2 83 22 109/86 (91) 98 06/17/17 02:18 60 06/17/17 02:18 36.1 85 22 118/87 (95) 97 06/17/17 02:15 60 06/17/17 01:40 35.8 86 22 132/90 (110) 97 06/17/17 00:49 35.4 92 22 119/99 (101) 94 06/17/17 00:33 35.3 100 18 121/97 (106) 93 06/17/17 00:18 35.2 96 18 115/99 (108) 93 06/17/17 00:03 35.2 100 18 116/87 (103) 92 06/16/17 23:59 60 06/16/17 23:59 94 Mechanical Ventilator 60 06/16/17 23:49 35.1 105 18 99/82 (84) 93 06/16/17 23:33 35.1 108 18 101/77 (88) 94 06/16/17 23:24 35.0 103 21 137/96 98 Mechanical Ventilator 60 06/16/17 23:18 35.0 91 19 133/100 (108) 94 06/16/17 23:11 34.9 106 19 100/73 (78) 95 06/16/17 23:05 80 06/16/17 23:03 34.9 104 18 126/87 (98) 95 06/16/17 22:34 112 12 113/76 94 Mechanical Ventilator 06/16/17 21:41 105 12 106/81 94 Mechanical Ventilator 80 06/16/17 21:32 103 12 90/73 94 Mechanical Ventilator 80 06/16/17 21:24 99 12 98/72 95 Mechanical Ventilator 80 06/16/17 21:21 100 06/16/17 21:18 97 12 85/63 95 Mechanical Ventilator 80 06/16/17 21:13 100 12 106/70 95 Mechanical Ventilator 06/16/17 21:05 89 20 100/71 99 Mechanical Ventilator 06/16/17 20:56 86 12 88/74 99 Mechanical Ventilator 06/16/17 20:49 87 12 91/77 99 Mechanical Ventilator 100 06/16/17 20:21 109/81 06/16/17 20:20 86 12 100 06/16/17 20:16 79/52 06/16/17 20:15 95 12 100 06/16/17 20:12 113/91 06/16/17 20:10 90 12 100 06/16/17 20:09 123/88 06/16/17 20:06 152/110 06/16/17 20:05 89 12 100 06/16/17 20:01 128/94 06/16/17 20:00 88 12 100 06/16/17 19:56 143/94 06/16/17 19:55 86 12 100 06/16/17 19:51 130/89 06/16/17 19:50 87 12 100 06/16/17 19:46 147/105 06/16/17 19:45 83 12 100 06/16/17 19:41 155/97 06/16/17 19:40 82 12 100 06/16/17 19:36 145/101 06/16/17 19:35 81 12 100 06/16/17 19:31 146/96 06/16/17 19:30 83 12 100 06/16/17 19:26 143/101 06/16/17 19:25 81 12 100 06/16/17 19:21 125/84 06/16/17 19:20 83 12 100 06/16/17 19:17 78/48 06/16/17 19:15 85 12 100 06/16/17 19:10 87 12 100 06/16/17 19:06 71/53 06/16/17 19:05 90 0 100 06/16/17 19:04 82/51 06/16/17 19:01 74/59 06/16/17 19:00 91 0 100 06/16/17 18:51 92 85/53 100 06/16/17 18:30 85/56 06/16/17 18:26 34.6 100 86/66 100 Mechanical Ventilator 06/16/17 18:22 100 92/73 100 Mechanical Ventilator 06/16/17 18:21 100 06/16/17 18:19 100 Mechanical Ventilator 06/16/17 18:13 101 06/16/17 18:11 101 84/54 100 Mechanical Ventilator Laboratory Results: Last 24 Hours Test 06/16/17 18:15 06/16/17 18:19 06/16/17 18:22 06/16/17 20:06 White Blood Count 11.03 K/uL Red Blood Count 4.98 M/uL Hemoglobin 16.8 g/dL Hematocrit 51.7 % Mean Corpuscular Volume 103.8 fL Mean Corpuscular Hemoglobin 33.7 pg Mean Corpuscular Hemoglobin Concent 32.5 g/dl Platelet Count 124 K/uL Mean Platelet Volume 11.7 fL Neutrophils (%) (Auto) 86.6 % Lymphocytes (%) (Auto) 10.2 % Monocytes (%) (Auto) 1.1 % Eosinophils (%) (Auto) 0.7 % Basophils (%) (Auto) 0.1 % Neutrophils # (Auto) 9.55 K/uL Lymphocytes # (Auto) 1.13 K/uL Monocytes # (Auto) 0.12 K/uL Eosinophils # (Auto) 0.08 K/uL Basophils # (Auto) 0.01 K/uL RDW Standard Deviation 51.0 fL RDW Coefficient of Variation 13.4 % Immature Granulocyte % (Auto) 1.3 % Immature Granulocyte # (Auto) 0.14 K/uL Prothrombin Time 13.3 SECONDS Prothromb Time International Ratio 1.2 Activated Partial Thromboplast Time 32.6 SECONDS Partial Thromboplastin Ratio 1.3 Sodium Level 134 mmol/L Potassium Level 4.7 mmol/L Chloride Level 99 mmol/L Carbon Dioxide Level 25 mmol/L Anion Gap 10.0 mmol/L 19.0 mmol/L Blood Urea Nitrogen 7 mg/dl Creatinine 1.20 mg/dl Estimated GFR () 81.8 Estimated GFR (Non- 70.6 BUN/Creatinine Ratio 5.5 Random Glucose 320 mg/dl Estimated Average Glucose 91 mg/dl Hemoglobin A1c 4.8 % Calcium Level 7.9 mg/dl Magnesium Level 2.3 mg/dl Total Bilirubin 0.3 mg/dl Direct Bilirubin mg/dl Aspartate Amino Transf (AST/SGOT) 48 U/L Alanine Aminotransferase (ALT/SGPT) 40 U/L Alkaline Phosphatase 86 U/L Total Creatine Kinase 136 U/L Creatine Kinase MB 3.1 ng/ml Creatine Kinase MB Ratio 2.3 Total Protein 6.3 gm/dl Albumin 3.1 gm/dl Beta-Hydroxybutyric Acid 2.28 mg/dL Chemistry Specimen Hemolysis Bedside Hemoglobin 18.0 g/dl 15.6 g/dl Bedside Hematocrit 53 % 46 % Bedside Sodium 134 mEq/L 132 mEq/L Bedside Potassium 4.7 mEq/L 3.8 mEq/L Bedside Chloride 96 mEq/L Bedside Total CO2 25 mEq/l Bedside Blood Urea Nitrogen 6 mg/dl Bedside Creatinine 0.9 mg/dl Bedside Glucose (other) 329 mg/dl Bedside Ionized Calcium ([place]) 1.13 mmol/l Bedside Blood Gas pH (LAB) 7.08 Bedside Blood Gas pCO2 (LAB) 75 mmHg Bedside Blood Gas pO2 (LAB) 276 mmHg Bedside Blood Gas HCO3 (LAB) 22 meq/L Bedside Blood Gas Total CO2 25 mEq/l Bedside Blood Gas Base Excess (LAB) -8.0 meq/L Bedside Blood Gas O2 Saturation 100.0 % Venous Blood pH 7.09 Venous Blood Partial Pressure CO2 85 mmHg Venous Blood Partial Pressure O2 62 mmHg Venous Blood HCO3 25 mmol/L Venous Blood Oxygen Saturation 89.1 % Venous Blood Base Excess -6.9 mmol/L Test 06/16/17 20:53 06/16/17 23:10 06/16/17 23:19 06/17/17 00:02 Urine Color YELLOW Urine Appearance CLEAR Urine pH 5.0 Urine Specific [place] > 1.045 Urine Protein 1+ Urine Glucose (UA) 3+ Urine Ketones NEG Urine Occult Blood TRACE Urine Nitrite POS Urine Bilirubin NEG Urine Urobilinogen NEG Urine Leukocyte Esterase SMALL Urine WBC (Auto) 10-30 /hpf Urine RBC (Auto) 0-4 /hpf Urine Hyaline Casts (Auto) 5-10 /lpf Urine Epithelial Cells (Auto) 5-10 /lpf Urine Bacteria (Auto) 4+ Urine Opiates Screen POS Urine Methadone, Qualitative NEG Urine Barbiturates NEG Urine Phencyclidine (PCP) Level NEG Ur Amphetamine/Methamphetamine NEG MDMA (Ecstasy) Screen NEG Urine Benzodiazepines Screen POS Urine Cocaine Metabolite NEG Urine Marijuana (THC) NEG Lactic Acid Level 2.5 mmol/L Troponin I 0.148 ng/ml Ethyl Alcohol mg/dL < 3.0 mg/dl Bedside Glucose (other) 153 mg/dl Blood Gas Sample Site L Radial Bedside Blood Gas pH (LAB) 7.23 Bedside Blood Gas pCO2 (LAB) 55 mmHg Bedside Blood Gas pO2 (LAB) 69 mmHg Bedside Blood Gas HCO3 (LAB) 23 meq/L Bedside Blood Gas Total CO2 25 mEq/l Bedside Blood Gas Base Excess (LAB) -5.0 meq/L Bedside Blood Gas O2 Saturation 90.0 % Radu Test NA Oxygen Delivery Device Ventilator Bedside Oxygen Rate (breaths/min) 18 Blood Gas Minute Ventilation 7.9 Bedside FiO2 60 % Blood Gas Tidal Volume 450 Blood Gas PEEP 5 Test 06/17/17 05:36 06/17/17 05:49 06/17/17 08:14 06/17/17 11:59 White Blood Count 8.77 K/uL Red Blood Count 4.85 M/uL Hemoglobin 16.6 g/dL Hematocrit 48.6 % Mean Corpuscular Volume 100.2 fL Mean Corpuscular Hemoglobin 34.2 pg Mean Corpuscular Hemoglobin Concent 34.2 g/dl Platelet Count 119 K/uL Mean Platelet Volume 11.6 fL Neutrophils (%) (Auto) 90.2 % Lymphocytes (%) (Auto) 4.7 % Monocytes (%) (Auto) 4.8 % Eosinophils (%) (Auto) 0.0 % Basophils (%) (Auto) 0.0 % Neutrophils # (Auto) 7.91 K/uL Lymphocytes # (Auto) 0.41 K/uL Monocytes # (Auto) 0.42 K/uL Eosinophils # (Auto) 0.00 K/uL Basophils # (Auto) 0.00 K/uL RDW Standard Deviation 48.8 fL RDW Coefficient of Variation 13.3 % Immature Granulocyte % (Auto) 0.3 % Immature Granulocyte # (Auto) 0.03 K/uL Prothrombin Time 13.2 SECONDS Prothromb Time International Ratio 1.2 Activated Partial Thromboplast Time 27.9 SECONDS Partial Thromboplastin Ratio 1.1 Sodium Level 138 mmol/L Potassium Level 5.5 mmol/L Chloride Level 107 mmol/L Carbon Dioxide Level 25 mmol/L Anion Gap 6.0 mmol/L Blood Urea Nitrogen 6 mg/dl Creatinine 0.69 mg/dl Est Creatinine Clear Calc Drug Dose 133.7 ml/min Estimated GFR () 129.2 Estimated GFR (Non- 111.5 BUN/Creatinine Ratio 8.8 Random Glucose 125 mg/dl Calcium Level 7.2 mg/dl Phosphorus Level 3.2 mg/dl Magnesium Level 1.9 mg/dl Total Bilirubin 0.8 mg/dl Direct Bilirubin 0.3 mg/dl Aspartate Amino Transf (AST/SGOT) 25 U/L Alanine Aminotransferase (ALT/SGPT) 29 U/L Alkaline Phosphatase 56 U/L Total Creatine Kinase 76 U/L Creatine Kinase MB 3.6 ng/ml Creatine Kinase MB Ratio 4.7 Troponin I 0.145 ng/ml Total Protein 5.1 gm/dl Albumin 2.6 gm/dl Bedside Glucose (other) 128 mg/dl Blood Gas Sample Site R Radial Bedside Blood Gas pH (LAB) 7.30 Bedside Blood Gas pCO2 (LAB) 46 mmHg Bedside Blood Gas pO2 (LAB) 79 mmHg Bedside Blood Gas HCO3 (LAB) 23 meq/L Bedside Blood Gas Total CO2 24 mEq/l Bedside Blood Gas Base Excess (LAB) -3.0 meq/L Bedside Blood Gas O2 Saturation 94.0 % Radu Test Pass Oxygen Delivery Device Ventilator Bedside Oxygen Rate (breaths/min) 22 Blood Gas Minute Ventilation 10.7 Bedside FiO2 60 % Blood Gas Tidal Volume 500 Blood Gas PEEP 5 Lactic Acid Level 3.0 mmol/L Test 06/17/17 12:05 06/17/17 14:14 06/17/17 15:23 Bedside Glucose (other) 110 mg/dl Total Creatine Kinase U/L 75 U/L Creatine Kinase MB 2.6 ng/ml Creatine Kinase MB Ratio Troponin I 0.141 ng/ml
[2017-06-17] MEDS ORDERED: AMIODARONE 360MG / 200ML D5W ONE (18:24)
[2017-06-17] MEDS ORDERED: AMIODARONE 150MG / 100ML D5W ONE (18:24)
[2017-06-17] MEDS ORDERED: AMIODARONE IV BOLUS / DRIP IV STA (18:29)
[2017-06-17] MEDS ORDERED: AMIODARONE / D5W 100 ML IV SCH (18:45)
--- NOTE | 2017-06-17 18:50 | DIAGNOSTIC IMAGING REPORT ---
CHEST ONE VIEW PORTABLE CLINICAL HISTORY: rapid heart rate cardiac arrhythmia COMPARISON STUDY: 06/17/2017 8:58 AM FINDINGS: Endotracheal tube 4 cm above the milena. Moderately improved aeration right lung base. Persistent parenchymal prominence both hemithoraces. IMPRESSION: Improved aeration right lung base. Persistent bilateral bronchovascular prominence. Endotracheal tube 4 cm above the milena. The above report was generated using voice recognition software. It may contain grammatical, syntax or spelling errors. Electronically signed by: James Parrish M.D. 06/17/2017 6:48 PM Dictated Date/Time: 06/17/2017 6:45 PM
[2017-06-17 18:57] LABS: HEMATOCRIT 41.5 % (42-52); MEAN CELL VOLUME 98.8 fL (80-100); MEAN CORPUSCULAR HEMOGLOBIN 33.6 pg (25-34); MEAN PLATELET VOLUME 11.4 fL (7.4-10.4); PLATELET COUNT 108 K/uL (130-400); WHITE BLOOD COUNT 12.85 K/uL (4.8-10.8)
[2017-06-17] MEDS ORDERED: AMIODARONE / D5W 200 ML IV SCH (19:00)
[2017-06-17 19:23] LABS: ALB/GLOB RATIO 0.9 (0.9-2); BUN/CREATININE RATIO 7.5 (10-20); CALCIUM 7.6 mg/dl (8.5-10.1); CREATININE 0.65 mg/dl (0.60-1.40); MAGNESIUM 1.7 mg/dl (1.8-2.4); PHOSPHORUS 2.5 mg/dl (2.5-4.9)
[2017-06-17 19:25] LABS: POTASSIUM 4.4 mmol/L (3.5-5.1)
[2017-06-17] MEDS ORDERED: DexMEDEtomidine IV DRIP IV STA (22:42)
[2017-06-17] MEDS ORDERED: CALCIUM CHLORIDE 10% 10 ML SYR IV STA (22:47)
[2017-06-17] MEDS ORDERED: DexMEDEtomidine HCL INJ 200 MCG in SODIUM CHLORIDE 0.9% 50ML 48 ML IV PRN (23:00)
[2017-06-17] MEDS ORDERED: LORAZEPAM INJ 2 MG in SYRINGE 1 ML IV PRN (23:00)
[2017-06-17] MEDS ORDERED: DIGOXIN IV 500 MCG in SYRINGE 8 ML IV ONE (23:00)
[2017-06-17] MEDS ORDERED: PROPOFOL IV EMULSION 10 MG/ML 20 ML VIAL IV STA (23:00)
[2017-06-17] MEDS ORDERED: PROPOFOL IV EMULSION 10 MG/ML 100 ML VIAL IV ONE (23:01)
[2017-06-17] MEDS: SODIUM CHLORIDE 0.9% 1000ML 500 ML IV SCH (23:46)
[2017-06-18] VITALS (28 sets, daily range): BP systolic 104–170; BP diastolic 59–97; PULSE 52–97; TEMP 36.6–37.6; O2SAT 90–100
[2017-06-18] MEDS: SODIUM CHLORIDE 0.9% 1000ML 500 ML IV SCH ×4 (00:17→01:19)
[2017-06-18] MEDS: MAGNESIUM SULFATE 1GM / D5W 1 GM in PREMIXED IN D5W 100 ML IV SCH ×2 (00:30)
[2017-06-18] MEDS: INSULIN ASPART 100 UNITS/ML 3 ML PEN SC SCH ×3 (01:05→12:00)
[2017-06-18] MEDS: AMIODARONE / D5W 200 ML IV SCH ×2 (01:06→13:47)
[2017-06-18] MEDS ORDERED: NURSING VERBAL MED ORDER ONE ×3 (01:45→19:00)
[2017-06-18] MEDS: VANCOMYCIN INJ 1,400 MG in SODIUM CHLORIDE 0.9% 500ML 500 ML IV SCH ×2 (05:23→14:59)
[2017-06-18] MEDS: PIPERACILL/TAZOBAC IV 4.5 GM in DEXTROSE 5% 100ML 100 ML IV SCH ×3 (05:23→19:00)
[2017-06-18] MEDS: SODIUM CHLORIDE 0.9% 1000ML 1,000 ML IV SCH ×2 (05:24→16:22)
[2017-06-18 06:07] LABS: INR 1.4 (0.9-1.1); PARTIAL THROMBOPLASTIN RATIO 1.3; PROTHROMBIN TIME (PATIENT) 14.7 SECONDS (9.0-12.0)
[2017-06-18 06:34] LABS: BUN/CREATININE RATIO 6.6 (10-20); CALCIUM 8.1 mg/dl (8.5-10.1); CREATININE 0.49 mg/dl (0.60-1.40); MAGNESIUM 2.2 mg/dl (1.8-2.4); POTASSIUM 4.3 mmol/L (3.5-5.1)
[2017-06-18 06:48] LABS: BASO % 0.1 %; BASO ABS # 0.01 K/uL (0-0.2); COMPLETE YES; EOS % 0.7 %; HEMATOCRIT 37.2 % (42-52); IG% 0.2 %; LYMPH % 11.6 %; LYMPH ABS # 0.98 K/uL (1.2-3.4); MEAN CELL VOLUME 98.9 fL (80-100); MEAN CORPUSCULAR HEMOGLOBIN 33.8 pg (25-34); MEAN CORPUSCULAR HGB CONC 34.1 g/dl (32-36); MEAN PLATELET VOLUME 11.7 fL (7.4-10.4); MONO % 6.7 %; NEUT % 80.7 %; PLATELET COUNT 108 K/uL (130-400); RED BLOOD COUNT 3.76 M/uL (4.7-6.1); WHITE BLOOD COUNT 8.48 K/uL (4.8-10.8)
--- NOTE | 2017-06-18 07:31 | DIAGNOSTIC IMAGING REPORT ---
CHEST ONE VIEW PORTABLE CLINICAL HISTORY: B/L ASPIRATION PNEUMONIA, ON THE VENTILATOR COMPARISON STUDY: Chest radiograph June 17, 2017 6:36 PM. FINDINGS: Incidental note is made of anterior and posterior cervical fusions and an old left midshaft clavicular fracture. The tip of the endotracheal tube is 3.6 cm above the milena. The tip of the nasogastric tube is below the lower aspect of this image but at least within the proximal stomach. No pneumothorax or pleural effusion is identified. Dense opacity within the medial right lower lung persists. There is also mild left lower lung opacity. Upper mediastinal widening persists. IMPRESSION: 1. Tip of endotracheal tube 3.6 cm above the milena. 2. No significant change in bibasilar opacities and interstitial thickening suggestive of pneumonia. 3. No change in upper mediastinal widening likely due to the hematoma shown on earlier chest CT. Electronically signed by: Munir Sanchez M.D. 06/18/2017 7:30 AM Dictated Date/Time: 06/18/2017 7:26 AM
[2017-06-18] MEDS: THIAMINE HCL 100 MG TAB PO SCH (08:34)
[2017-06-18] MEDS: LANSOPRAZOLE SOLUTAB 30 MG PO SCH (08:34)
[2017-06-18] MEDS: POLYETHYLENE (MIRALAX) 17 GM PACK PO SCH (08:34)
[2017-06-18 08:58] LABS: IPAP 10; ISTAT ALLEN TEST Pass; ISTAT ARTERIAL BLOOD GAS HCO3 25 meq/L (19-24); ISTAT ARTERIAL BLOOD GAS PCO2 42 mmHg (35-46); ISTAT ARTERIAL BLOOD GAS PO2 74 mmHg (80-95); ISTAT ARTERIAL BLOOD GAS pH 7.38 (7.35-7.45); ISTAT CARBON DIOXIDE 26 mEq/l (24-31); ISTAT DELIVERY SYSTEM BIPAP; ISTAT FIO2 50 %; ISTAT RATE 14; ISTAT SITE R Radial
[2017-06-18] MEDS ORDERED: SODIUM PHOSPHATE 3 MMOL/1 ML INFUSION IV STA (09:03)
[2017-06-18] MEDS ORDERED: SODIUM PHOSPHATE INJ 15 MMOL in SODIUM CHLORIDE 0.9% 250ML 250 ML IV ONE (09:30)
[2017-06-18] MEDS ORDERED: MULTIVITAMINS W/MINERALS 15ML UDP PO ONE (09:45)
--- NOTE | 2017-06-18 10:15 | DIAGNOSTIC IMAGING REPORT ---
SOFT TISSUE NECK WITHOUT CLINICAL HISTORY: Neck hematoma. Cardiopulmonary arrest. PEA. History of C5 fracture. Quadriplegic. COMPARISON STUDY: Chest CT June 16, 2017. TECHNIQUE: Axial images of the neck were obtained without IV contrast. FINDINGS: Endotracheal and nasogastric tubes are noted. Anterior and posterior spinal fusions are noted. Calcific/ossific density projects over the central canal/cord. This is suboptimally assessed by CT but is chronic. This is consistent with the reported history of previous trauma. The right lower neck/upper mediastinal hematoma has significantly decreased in size since chest CT of June 16, 2017. There is mild residual soft tissue swelling/hemorrhage. There is no large hematoma. There is no mass effect upon the airway. The chest will be reported separately. There is no cervical lymphadenopathy. There are secretions within the sinuses. Incidental note is made of several old cervical and thoracic spine fractures as well as a healed fracture of the left clavicle. There is mild subcutaneous infiltration of the anterior chest wall. IMPRESSION: 1. Near complete resolution of the previously described right lower neck/upper mediastinal hematoma since chest CT of June 16, 2017. 2. Old posttraumatic findings within the cervical spine, thoracic spine and left clavicle status post multilevel anterior posterior fusion. Electronically signed by: Munir Sanchez M.D. 06/18/2017 10:14 AM Dictated Date/Time: 06/18/2017 9:53 AM
--- NOTE | 2017-06-18 10:33 | DIAGNOSTIC IMAGING REPORT ---
CT OF THE CHEST WITHOUT IV CONTRAST CLINICAL HISTORY: Aspiration, respiratory failure. COMPARISON STUDY: Chest CT June 16, 2017. CT DOSE: 601.60 mGycm TECHNIQUE: Axial images of the chest were obtained without IV contrast. Images were reviewed in the axial, sagittal, and coronal planes. IV contrast was not administered for this examination. A dose lowering technique was utilized adhering to the principles of ALARA. FINDINGS: The tip of the endotracheal tube is 4.1 cm above the milena. The tip of the nasogastric tube is within the gastric cardia. There is no pneumothorax. There are small bilateral pleural effusions. The right lower neck/upper mediastinal hematoma shown on exam of June 16, 2017 has significantly decreased in size. Subcutaneous infiltration of the right upper chest wall is noted. There is minimal infiltration/blood anterior and posterior to the sternum. There is an acute nondisplaced inferior sternal fracture. In retrospect, this was likely present on prior exam of June 16, 2017. Several right-sided rib deformities are age-indeterminate but probably old. There are extensive secretions throughout the airways. These are most pronounced within the bilateral lower lobe bronchi with apparent occlusion. There is subtotal right lower lobe collapse. There are segmental left lower lobe atelectasis. There are tree-in-bud/groundglass opacities throughout both lungs. Right upper lobe consolidation has improved since exam of June 16, 2017 while right lower lobe consolidation/atelectasis has significantly increased. Bilateral hilar fullness is suboptimally assessed on this unenhanced exam. Multiple old thoracic spine compression deformities are present. There is an old left clavicular fracture as well as previous anterior and posterior cervical spine fusions. IMPRESSION: 1. Satisfactory positioning of the endotracheal tube. 2. Extensive secretions throughout the airways, most pronounced within the bilateral lower lobes consistent with aspiration. Significant increase in right lower lobe atelectasis/consolidation with volume loss. Subtotal right lower lobe collapse. Tree-in-bud and ground glass opacities throughout the remainder of the lungs suggest pneumonia. 3. Small bilateral pleural effusions. No pneumothorax. 4. Probable acute nondisplaced inferior sternal fracture. Several nondisplaced right-sided rib fractures are age-indeterminate but probably old. Electronically signed by: Munir Sanchez M.D. 06/18/2017 10:31 AM Dictated Date/Time: 06/18/2017 10:14 AM
[2017-06-18] MEDS ORDERED: VANCOMYCIN TROUGH ONE (13:30)
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
--- NOTE | 2017-06-18 16:02 | Pharmacy Progress Note ---
Pharmacy Progress Note Date of Service Jun 18, 2017. Progress Note Patient is on day #3 of vancomycin ordered 1400 mg q12 hours, but dose times have varied, making it difficult to evaluate today's trough level. Will repeat trough with next dose. Thank you for engaging the clinical pharmacy consult service in the care of this patient. Please let us know if we can be of further assistance.
--- NOTE | 2017-06-18 17:36 | Critical Care Progress Note ---
Critical Care Progress Note Date of Service Jun 18, 2017. Attending Dr. Duran Subjective Last night he developed a-fib with RVR, required Amiodarone drip, Digoxin. Also required some sedation with Ativan and Precedex. Eventually he converted to NSR. He still had copious purulent secretions suctioned from the ET tube. Extubated at family's request, doing fairly well considering the current issues. Objective General: Patient is intubated, comfortable HEENT: NC/AT, ET tube, OG tube Neck: Mild basal fullness, small ecchymotic area over the right side Lungs: Coarse breath sounds, b/l Chest: upper sternal ecchymosis, mild excoriation CVS: S1S2 regular Abd: Soft,obese Ext: No edema, contracted extremities Ext: moves upper, plegic lower. Tracks me in the room appropriately, communicates yes/no Current SOFA Score SOFA Score Response (Comments) Value PaO2/FiO2 (mmHg) < 200 3 SaO2 / FIO2 142 - 220 2 Platelets (x10) < 150 1 Bilirubin (mg/dL) < 1.2 0 [place] Coma Score 15 0 Level of Hypotension Dopamine < 5 mcq / dobutamine 2 Creatinine (mg/dL) < 1.2 0 Total 8 Previous SOFA Scores 10 Assessment & Plan 51 year old male with quadriplegia, s/p cardiac arrests secondary to suspected intentional overdose, intubated, with aspiration pneumonia. Also developed neck hematoma likely secondary to Vu device or intubation. Extubated today. 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 Reinstate Valium eventually. prn Ativan March d/c Precedex Thiamine. Monitor for withdrawal Pulmonary: Significant aspiration pneumonia Continue Abx He was not an extubation candidate in my opinion, but family refused to leave him intubated. I extubated him despite having a very chance of succumbing to respiratory failure. He has very poor cough, diaphragmatic dysfunction or paralysis, copious secretions Elevate head Hematoma of the neck. Likely secondary to compressions, or difficult intubation (he has rods in the neck). Just monitor, does not seem to be expanding. Marked the margins of the right neck ecchymosis Repeat CT scan showed near complete resolution of the hematoma CVS: Titrate down pressors as tolerated Echo reviewed, unremarkable Mild troponin elevation, not concerning for NM Finish 24 hours of amiodarone, remains in NSR. No need for anticoagulation Renal/metabolic: May d/c IV fluids Lactic acidosis cleared Mild lactic acidosis, should clear GI: May start a soft diet Heme: folic acid, has macrocytosis in the setting of alcohol abuse DVT prophylaxis: No anticoagulation secondary to neck hematoma. ICDs I had an extensive discussion with the mother and the sister. Dr Vela and Nurse Mello witnessed my conversation. They wanted to remove the ventilatory support no matter what the consequences are. I explained them that he is still in critical condition and normally I would not extubate such a patient, given his quadriplegia, weak or sometimes absent cough (even when deeply suctioned via ET tube), copious secretions, neck hematoma. He would very likely deteriorate and if we do note reintubate him (which might be a difficult task). Such a patient requires longer treatment, and there might be a chance to safely extubate him. If we extubate him today, we are taking that chance away from him. The mother is fully aware of the ramifications of her decision, but based on multiple conversations with her son over the past two years, she knows this the appropriate decision. The patient is awake, I told him about our decision and current condition and what would happen if we proceed,. He did not disagree with this decision. I proceeded with the extubation. Critical care time spent with the patient and the family, reviewing the chart, greater than 60 minutes. Consults & Procedures Consultants: Critical care Procedures: Femoral TLC 06/16 Intubated in the field 06/16 OGT 06/16 Extubated 06/18 Data Medications: Current Inpatient Medications Medications (Trade) Dose Ordered Sig/Christie Route Start Time Stop Time Status Last Admin Dose Admin Ioversol (Optiray 320) 100 ml UD PRN IV 06/16/17 18:30 06/20/17 18:29 Piperacillin Sod/ Tazobactam Sod 4.5 gm/Dextrose 120 ml @ 30 mls/hr Q8H IV 06/17/17 03:00 06/23/17 18:59 06/18/17 10:46 30 MLS/HR Vancomycin HCl (Consult) 1 ea UD PRN N/A 06/16/17 22:45 06/26/17 22:44 Piperacillin Sod/ Tazobactam Sod (Consult) 1 ea UD PRN N/A 06/16/17 22:45 06/26/17 22:44 Vancomycin HCl 1400 mg/Sodium Chloride 528 ml @ 200 mls/hr Q12@0200,1400 IV 06/17/17 02:00 06/24/17 01:59 06/18/17 14:59 200 MLS/HR Glucose (Glucose 40% Gel) UD PRN PO 06/17/17 00:00 07/17/17 00:00 Glucose (Glucose Chew Tab) 1 tabs UD PRN PO 06/17/17 00:00 07/17/17 00:00 Dextrose (Dextrose 50% 50ML Syringe) 50 ml UD PRN IV 06/17/17 00:00 07/17/17 00:00 Glucagon (Glucagon Inj) 1 mg UD PRN SQ 06/17/17 00:00 07/17/17 00:00 Heparin Sodium (Porcine) (Heparin 10 Unit/ ml 5 ml Flush) 5 ml PRN PRN FLUSH 06/17/17 00:30 07/17/17 00:29 Sodium Chloride 1,000 ml @ 100 mls/hr Q10H IV 06/17/17 07:30 07/17/17 07:29 06/18/17 16:22 100 MLS/HR Bisacodyl (Dulcolax Supp) 10 mg MoWeFr@0900 [place] 06/17/17 09:00 07/17/17 08:59 06/17/17 09:26 10 MG Polyethylene (Miralax Powder Packet) 17 gm DAILY PO 06/18/17 09:00 07/18/17 08:59 06/18/17 08:34 17 GM Lansoprazole (Prevacid Solutab) 30 mg QAM PO 06/18/17 09:00 07/18/17 08:59 06/18/17 08:34 30 MG Thiamine HCl (Vitamin B-1 Tab) 100 mg QAM PO 06/17/17 09:00 07/17/17 08:59 06/18/17 08:34 100 MG Folic Acid (Folvite Tab) 1 mg QAM PO 06/17/17 09:00 07/17/17 08:59 06/18/17 08:34 1 MG Norepinephrine Bitartrate 8 mg/ Dextrose 508 ml @ 0 mls/hr Q0M PRN IV 06/17/17 17:15 07/16/17 22:05 Amiodarone HCL/ Dextrose 200 ml @ 16.7 mls/hr [id number] IV 06/18/17 01:00 07/18/17 00:59 06/18/17 13:47 16.7 MLS/HR Lorazepam 2 mg/ Syringe 2 ml @ 1 mls/min Q4H PRN IV 06/17/17 23:00 07/16/17 22:59 06/18/17 10:42 1 MLS/MIN Dexmedetomidine HCl 200 mcg/ Sodium Chloride 50 ml @ 0 mls/hr Q0M PRN IV 06/17/17 23:00 06/21/17 22:59 Multivitamins Therapeutic (Cerovite Liquid) 15 ml QAM PO 06/19/17 09:00 07/19/17 08:59 I & O: 24-Hour Column 06/19/17 08:00 Intake Total 1886 ml Output Total 800 ml Balance 1086 ml Vital Signs: Date Time Temp Pulse Resp B/P (MAP) Pulse Ox O2 Delivery O2 Flow Rate FiO2 06/18/17 16:00 93 Oxymask 06/18/17 16:00 36.6 85 18 148/88 (108) 94 Oxymask 6.0 06/18/17 14:00 37.1 69 18 128/89 (102) 96 Oxymask 6.0 06/18/17 12:00 98 Mechanical Ventilator 50 06/18/17 12:00 50 06/18/17 12:00 37.1 74 18 134/81 (98) 98 Mechanical Ventilator 50 06/18/17 10:00 37.1 68 18 122/75 (91) 97 Mechanical Ventilator 50 06/18/17 08:00 98 Mechanical Ventilator 50 06/18/17 08:00 37.1 65 18 134/82 (99) 98 Mechanical Ventilator 50 06/18/17 08:00 50 06/18/17 07:40 50 06/18/17 07:29 60 06/18/17 06:04 37.4 62 14 132/91 (105) 98 06/18/17 05:33 37.4 65 17 122/77 (92) 97 06/18/17 05:32 60 06/18/17 05:03 37.4 64 15 149/92 (111) 99 06/18/17 04:33 37.5 58 16 133/81 (98) 98 06/18/17 04:30 60 06/18/17 04:30 100 Mechanical Ventilator 60 06/18/17 04:03 37.5 62 16 144/93 (110) 99 06/18/17 03:33 37.5 55 17 135/79 (97) 99 06/18/17 03:03 37.5 58 16 135/84 (101) 99 06/18/17 02:33 37.6 56 16 133/79 (97) 99 06/18/17 02:03 37.6 52 17 170/97 (121) 99 06/18/17 01:39 60 06/18/17 01:33 37.6 52 16 164/91 (115) 99 60 06/18/17 01:04 37.6 53 17 167/92 (117) 98 60 06/18/17 00:33 37.6 67 16 139/88 (105) 97 60 06/18/17 00:30 130 06/18/17 00:11 60 06/18/17 00:11 100 Mechanical Ventilator 60 06/18/17 00:03 37.6 81 21 121/86 (98) 60 06/17/17 23:45 37.6 84 19 179/81 (113) 95 60 06/17/17 23:33 37.6 110 16 196/131 (152) 60 06/17/17 23:16 37.7 131 22 102/87 (92) 87 60 06/17/17 23:15 60 06/17/17 23:04 37.7 80 20 73/53 (60) 96 60 06/17/17 22:03 37.5 114 22 116/74 (88) 99 Mechanical Ventilator 60 06/17/17 21:33 37.6 127 22 108/87 (94) 99 Mechanical Ventilator 60 06/17/17 21:32 37.6 118 22 113/84 (94) 100 Mechanical Ventilator 60 06/17/17 21:13 37.6 106 22 100/60 (73) 100 Mechanical Ventilator 60 06/17/17 21:03 37.6 120 22 91/75 (80) 100 Mechanical Ventilator 60 7 20:53 37.6 114 22 102/76 (85) 100 Mechanical Ventilator 60 7 20:43 37.6 108 22 100/71 (81) 100 Mechanical Ventilator 60 7 20:33 37.6 112 22 88/65 (73) 100 Mechanical Ventilator 60 7 20:23 37.6 117 22 114/93 (100) 100 Mechanical Ventilator 60 7 20:13 37.6 123 22 102/74 (83) 100 Mechanical Ventilator 60 7 20:04 100 Mechanical Ventilator 60 7 20:04 60 7 20:03 37.6 103 22 100/71 (81) 100 Mechanical Ventilator 60 06/17/17 19:53 37.6 113 22 103/83 (90) 100 Mechanical Ventilator 60 06/17/17 19:43 37.6 85 22 114/82 (93) 100 Mechanical Ventilator 60 06/17/17 19:33 37.6 118 22 112/88 (96) 100 Mechanical Ventilator 60 06/17/17 19:30 60 06/17/17 19:23 37.5 114 24 91/63 (72) 98 Mechanical Ventilator 60 06/17/17 19:14 37.5 113 22 119/71 (87) 100 Mechanical Ventilator 60 06/17/17 19:03 37.5 105 22 127/102 (110) 100 Mechanical Ventilator 60 06/17/17 18:43 37.5 119 22 87/51 (63) 98 Mechanical Ventilator 60 06/17/17 18:33 37.5 111 22 98/63 (75) 98 Mechanical Ventilator 60 06/17/17 18:24 37.4 126 22 100/46 (64) 99 Mechanical Ventilator 60 06/17/17 18:18 37.3 93 22 87/74 (78) 99 Mechanical Ventilator 60 06/17/17 18:14 60 7 18:03 37.3 84 22 115/82 (93) 100 Mechanical Ventilator 60 7 17:48 37.3 81 22 130/88 (102) 100 Mechanical Ventilator 60 7 17:33 37.3 81 22 125/87 (100) 100 Mechanical Ventilator 60 7 17:18 37.3 89 22 125/96 (106) 100 Mechanical Ventilator 60 Laboratory Results: Last 24 Hours Test 06/17/17 17:33 06/17/17 18:41 06/18/17 01:00 06/18/17 05:47 Bedside Glucose (other) 114 mg/dl 166 mg/dl White Blood Count 12.85 K/uL 8.48 K/uL Red Blood Count 4.20 M/uL 3.76 M/uL Hemoglobin 14.1 g/dL 12.7 g/dL Hematocrit 41.5 % 37.2 % Mean Corpuscular Volume 98.8 fL 98.9 fL Mean Corpuscular Hemoglobin 33.6 pg 33.8 pg Mean Corpuscular Hemoglobin Concent 34.0 g/dl 34.1 g/dl RDW Standard Deviation 47.8 fL 48.6 fL RDW Coefficient of Variation 13.4 % 13.5 % Platelet Count 108 K/uL 108 K/uL Mean Platelet Volume 11.4 fL 11.7 fL Sodium Level 138 mmol/L 140 mmol/L Potassium Level 4.4 mmol/L 4.3 mmol/L Chloride Level 105 mmol/L 109 mmol/L Carbon Dioxide Level 25 mmol/L 25 mmol/L Anion Gap 8.0 mmol/L 6.0 mmol/L Blood Urea Nitrogen 5 mg/dl 3 mg/dl Creatinine 0.65 mg/dl 0.49 mg/dl Est Creatinine Clear Calc Drug Dose 141.9 ml/min 188.3 ml/min Estimated GFR () 132.4 148.7 Estimated GFR (Non- 114.2 128.3 BUN/Creatinine Ratio 7.5 6.6 Random Glucose 135 mg/dl 111 mg/dl Lactic Acid Level 2.8 mmol/L Calcium Level 7.6 mg/dl 8.1 mg/dl Ionized Calcium 1.07 mmol/l Phosphorus Level 2.5 mg/dl 2.0 mg/dl Magnesium Level 1.7 mg/dl 2.2 mg/dl Total Bilirubin 0.7 mg/dl 0.4 mg/dl Aspartate Amino Transf (AST/SGOT) 20 U/L 17 U/L Alanine Aminotransferase (ALT/SGPT) 24 U/L 24 U/L Alkaline Phosphatase 42 U/L 44 U/L Troponin I 0.116 ng/ml Total Protein 4.8 gm/dl 4.6 gm/dl Albumin 2.3 gm/dl 2.2 gm/dl Globulin 2.5 gm/dl Albumin/Globulin Ratio 0.9 Neutrophils (%) (Auto) 80.7 % Lymphocytes (%) (Auto) 11.6 % Monocytes (%) (Auto) 6.7 % Eosinophils (%) (Auto) 0.7 % Basophils (%) (Auto) 0.1 % Neutrophils # (Auto) 6.84 K/uL Lymphocytes # (Auto) 0.98 K/uL Monocytes # (Auto) 0.57 K/uL Eosinophils # (Auto) 0.06 K/uL Basophils # (Auto) 0.01 K/uL Immature Granulocyte % (Auto) 0.2 % Immature Granulocyte # (Auto) 0.02 K/uL Prothrombin Time 14.7 SECONDS Prothromb Time International Ratio 1.4 Activated Partial Thromboplast Time 33.6 SECONDS Partial Thromboplastin Ratio 1.3 Direct Bilirubin 0.1 mg/dl Test 06/18/17 05:48 06/18/17 08:46 06/18/17 13:12 06/18/17 13:52 Lactic Acid Level 2.0 mmol/L Blood Gas Sample Site R Radial Bedside Blood Gas pH (LAB) 7.38 Bedside Blood Gas pCO2 (LAB) 42 mmHg Bedside Blood Gas pO2 (LAB) 74 mmHg Bedside Blood Gas HCO3 (LAB) 25 meq/L Bedside Blood Gas Total CO2 26 mEq/l Bedside Blood Gas Base Excess (LAB) -1.0 meq/L Bedside Blood Gas O2 Saturation 94.0 % Radu Test Pass Oxygen Delivery Device BIPAP Bedside Oxygen Rate (breaths/min) 14 Bedside FiO2 50 % Blood Gas IPAP 10 Bedside Glucose (other) 117 mg/dl Vancomycin Level Trough 13.0 mcg/ml
[2017-06-19] VITALS (25 sets, daily range): BP systolic 103–166; BP diastolic 67–103; PULSE 86–132; TEMP 36.6–36.8; O2SAT 87–100
[2017-06-19] MEDS: AMIODARONE / D5W 200 ML IV SCH (01:00)
[2017-06-19] MEDS ORDERED: VANCOMYCIN TROUGH ONE (01:30)
[2017-06-19] MEDS ORDERED: NURSING VERBAL MED ORDER ONE ×2 (04:15→09:45)
[2017-06-19] MEDS: VANCOMYCIN INJ 1,400 MG in SODIUM CHLORIDE 0.9% 500ML 500 ML IV SCH (04:50)
[2017-06-19] MEDS: DIAZEPAM 5MG TAB PO SCH ×3 (04:51→21:24)
[2017-06-19] MEDS: PIPERACILL/TAZOBAC IV 4.5 GM in DEXTROSE 5% 100ML 100 ML IV SCH ×3 (04:51→19:00)
[2017-06-19 05:51] LABS: COMPLETE YES; EOS % 0.5 %; HEMATOCRIT 32.3 % (42-52); IG% 0.3 %; LYMPH % 8.1 %; MEAN CELL VOLUME 98.2 fL (80-100); MEAN CORPUSCULAR HGB CONC 34.7 g/dl (32-36); MEAN PLATELET VOLUME 11.3 fL (7.4-10.4); MONO % 5.4 %; NEUT % 85.7 %; PLATELET COUNT 126 K/uL (130-400); RED BLOOD COUNT 3.29 M/uL (4.7-6.1); WHITE BLOOD COUNT 7.45 K/uL (4.8-10.8)
[2017-06-19 06:07] LABS: INR 1.1 (0.9-1.1); PARTIAL THROMBOPLASTIN RATIO 1.4; PROTHROMBIN TIME (PATIENT) 11.7 SECONDS (9.0-12.0)
[2017-06-19 06:28] LABS: ALKALINE PHOSPHATASE 50 U/L (45-117); ALT/SGPT 20 U/L (12-78); BLOOD UREA NITROGEN 5 mg/dl (7-18); BUN/CREATININE RATIO 10.8 (10-20); CALCIUM 7.7 mg/dl (8.5-10.1); CARBON DIOXIDE 27 mmol/L (21-32); CHLORIDE 108 mmol/L (98-107); CREATININE 0.43 mg/dl (0.60-1.40); GLUCOSE 90 mg/dl (70-99); PHOSPHORUS 1.9 mg/dl (2.5-4.9); SODIUM 140 mmol/L (136-145)
[2017-06-19] MEDS: LANSOPRAZOLE SOLUTAB 30 MG PO SCH (09:00)
[2017-06-19] MEDS ORDERED: MULTIVITAMINS W/MINERALS 15ML UDP PO SCH (09:00)
[2017-06-19] MEDS ORDERED: SODIUM PHOSPHATE 3 MMOL/1 ML INFUSION IV STA (09:23)
[2017-06-19] MEDS ORDERED: FUROSEMIDE 40 MG/4 ML VIAL IV STA (09:31)
[2017-06-19] MEDS: ACETYLCYSTEINE 20% INHAL SOLN ***DISPENSED BY RESP. INH SCH ×3 (09:34→19:05)
[2017-06-19] MEDS: ALBUT/IPRATROP 3MG/0.5MG NEB 3 ML VIAL INH SCH ×3 (09:35→19:05)
[2017-06-19 09:36] LABS: POTASSIUM 3.5 mmol/L (3.5-5.1)
[2017-06-19] MEDS ORDERED: SODIUM PHOSPHATE INJ 15 MMOL in SODIUM CHLORIDE 0.9% 250ML 250 ML IV SCH (10:00)
[2017-06-19] MEDS ORDERED: PANTOprazole SOD 40 MG TAB PO ONE (10:00)
[2017-06-19] MEDS: THIAMINE HCL 100 MG TAB PO SCH (10:11)
[2017-06-19] MEDS: POLYETHYLENE (MIRALAX) 17 GM PACK PO SCH (10:11)
[2017-06-19] MEDS ORDERED: POTASSIUM CHLORIDE PWD 20 MEQ PACK PO ONE (10:30)
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
[2017-06-19 20:36] LABS: COD UR NEGATIVE NG/ML (CUTOFF=50); HYDROCOD UR NEGATIVE NG/ML (CUTOFF=50); HYDROMOR UR NEGATIVE NG/ML (CUTOFF=50); HYDROXYETHYLFLURAZEPAM CONF NEGATIVE NG/ML (CUTOFF=50); HYDROXYMIDAZOLAM 675 NG/ML (CUTOFF=50); HYDROXYTRIAZOLAM CONF NEGATIVE NG/ML (CUTOFF=50); MORPHINE UR NEGATIVE NG/ML (CUTOFF=50); NORHYDROCODONE CONF UR NEGATIVE NG/ML (CUTOFF=50); OXYMORPH UR 7930 NG/ML (CUTOFF=50); TEMAZEPAM CONF 1160 NG/ML (CUTOFF=50)
[2017-06-19] MEDS: POTASSIUM CHLORIDE PWD 20 MEQ PACK PO SCH (21:25)
[2017-06-20] VITALS (28 sets, daily range): BP systolic 79–140; BP diastolic 57–95; PULSE 101–138; TEMP 36.6–37.2; O2SAT 82–96
[2017-06-20] MEDS: ALBUT/IPRATROP 3MG/0.5MG NEB 3 ML VIAL INH SCH ×2 (01:50→07:05)
[2017-06-20] MEDS: ACETYLCYSTEINE 20% INHAL SOLN ***DISPENSED BY RESP. INH SCH ×4 (01:50→19:08)
[2017-06-20] MEDS ORDERED: NURSING VERBAL MED ORDER ONE ×2 (02:30→04:45)
[2017-06-20] MEDS ORDERED: LORAZEPAM 2 MG/ML 1 ML VIAL IV ONE (02:45)
[2017-06-20 02:54] LABS: BASO % 0.1 %; BASO ABS # 0.01 K/uL (0-0.2); COMPLETE YES; HEMATOCRIT 33.9 % (42-52); IG% 0.2 %; LYMPH % 6.6 %; LYMPH ABS # 0.57 K/uL (1.2-3.4); MEAN CELL VOLUME 97.1 fL (80-100); MEAN CORPUSCULAR HEMOGLOBIN 33.2 pg (25-34); MEAN CORPUSCULAR HGB CONC 34.2 g/dl (32-36); MEAN PLATELET VOLUME 10.7 fL (7.4-10.4); MONO % 4.7 %; NEUT % 88.4 %; PLATELET COUNT 105 K/uL (130-400); RED BLOOD COUNT 3.49 M/uL (4.7-6.1); WHITE BLOOD COUNT 8.58 K/uL (4.8-10.8)
[2017-06-20 03:03] LABS: INR 1.1 (0.9-1.1); PROTHROMBIN TIME (PATIENT) 11.5 SECONDS (9.0-12.0)
[2017-06-20 03:36] LABS: BUN/CREATININE RATIO 8.4 (10-20); CALCIUM 8.2 mg/dl (8.5-10.1); CREATININE 0.54 mg/dl (0.60-1.40); MAGNESIUM 1.8 mg/dl (1.8-2.4); PHOSPHORUS 2.4 mg/dl (2.5-4.9); POTASSIUM 3.5 mmol/L (3.5-5.1)
[2017-06-20] MEDS: PIPERACILL/TAZOBAC IV 4.5 GM in DEXTROSE 5% 100ML 100 ML IV SCH ×3 (03:47→17:14)
[2017-06-20] MEDS ORDERED: POTASSIUM CHLORIDE PWD 20 MEQ PACK PO ONE ×2 (05:15→05:30)
[2017-06-20] MEDS ORDERED: MAGNESIUM SULFATE 1GM / D5W 1 GM in PREMIXED IN D5W 100 ML IV ONE (05:15)
[2017-06-20] MEDS ORDERED: FUROSEMIDE 40 MG/4 ML VIAL IV STA (05:18)
[2017-06-20] MEDS ORDERED: FUROSEMIDE 40 MG/4 ML VIAL ONE (05:24)
[2017-06-20] MEDS ORDERED: ALBUMIN HUMAN 25% 12.5 GM/50 ML VIAL IV ONE (05:30)
--- NOTE | 2017-06-20 07:11 | DIAGNOSTIC IMAGING REPORT ---
CHEST ONE VIEW PORTABLE HISTORY: Respiratory distress. COMPARISON: Chest 06/18/2017. FINDINGS: The heart remains mildly enlarged. No pneumothorax. Cervical spinal fusion hardware. Old, healed left clavicle fracture. Progression of the interstitial thickening and patchy perihilar airspace opacities. This most pronounced within the left lower lobe. Small bilateral pleural effusions have progressed. Right infrahilar density remains unchanged. IMPRESSION: Progression of the bilateral airspace opacities and small bilateral pleural effusions. This is most pronounced within the left lower lobe. This favors a multifocal pneumonia. Superimposed pulmonary edema could also have a similar appearance. Electronically signed by: Everette Esquivel M.D. 06/20/2017 7:10 AM Dictated Date/Time: 06/20/2017 7:07 AM
[2017-06-20] MEDS: DIAZEPAM 5MG TAB PO SCH (08:24)
[2017-06-20] MEDS: CEROVITE ADV FORMULA TAB PO SCH (08:25)
[2017-06-20] MEDS: THIAMINE HCL 100 MG TAB PO SCH (08:25)
[2017-06-20] MEDS: POLYETHYLENE (MIRALAX) 17 GM PACK PO SCH (08:25)
[2017-06-20] MEDS: POTASSIUM CHLORIDE PWD 20 MEQ PACK PO SCH (08:25)
[2017-06-20] MEDS: BISACODYL 10 MG SUPP PR SCH (08:26)
[2017-06-20] MEDS ORDERED: PANTOprazole SOD 40 MG TAB PO SCH (09:00)
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
[2017-06-20] MEDS ORDERED: FLUOXETINE HCL 20 MG CAP PO ONE (11:15)
[2017-06-20] MEDS ORDERED: GABAPENTIN 600MG LOADING DOSE PO SCH (12:00)
[2017-06-20] MEDS ORDERED: NICOTINE 14 MG/24 HR TDSY TD ONE (12:15)
[2017-06-20] MEDS: LORAZEPAM 1 MG TAB PO PRN ×2 (13:07→23:17)
[2017-06-20] MEDS: LEVALBUTEROL 1.25MG/0.5ML NEB INH SCH ×2 (14:07→19:08)
[2017-06-20] MEDS: IPRATROPIUM BROMIDE NEB SOLN 0.02% 2.5 ML VIAL INH SCH ×2 (14:07→19:08)
[2017-06-20] MEDS: GABAPENTIN 100MG Q6H DOSE PO SCH ×2 (17:14→23:16)
[2017-06-20 21:29] LABS: ISTAT ARTERIAL BLOOD GAS HCO3 29 meq/L (19-24); ISTAT ARTERIAL BLOOD GAS PCO2 41 mmHg (35-46); ISTAT ARTERIAL BLOOD GAS PO2 75 mmHg (80-95); ISTAT ARTERIAL BLOOD GAS pH 7.45 (7.35-7.45); ISTAT CARBON DIOXIDE 30 mEq/l (24-31); ISTAT HEMATOCRIT 31 % (42-52); ISTAT HEMOGLOBIN 10.5 g/dl (14.0-18.0); ISTAT SODIUM 135 mEq/L (135-144)
[2017-06-21] VITALS (20 sets, daily range): BP systolic 86–136; BP diastolic 51–92; PULSE 94–107; TEMP 36.8–37.1; O2SAT 89–98
--- NOTE | 2017-06-21 | Critical Care Progress Note ---
Critical Care Progress Note Date of Service Jun 20, 2017. ICU Day ICU Day Number: [address] Malhotra Subjective No major overnight events Objective General: Patient is awake, alert, comfortable HEENT: NC/AT Neck: Mild basal fullness, small ecchymotic area over the right side Lungs: Coarse breath sounds, b/l, rhonchi Chest: upper sternal ecchymosis, mild excoriation CVS: S1S2 regular Abd: Soft,obese Ext: mild pedal edema, contracted extremities CLAIMS CONSULTANT: moves upper extremities, plegic lower extremities. AAO x 3. Assessment & Plan 51 year old male with quadriplegia, s/p cardiac arrests secondary to suspected intentional overdose, intubated, with aspiration pneumonia. Also developed neck hematoma likely secondary to Vu device or intubation. Extubated yesterday. 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 Reinstated Valium. Thiamine. Monitor for alcohol withdrawal SARINA started Psych: Patient is depressed. Psychiatric evaluation and reviewed Pulmonary: Significant aspiration pneumonia Continue Zosyn Patient remains at high risk for respiratory failure. Hypoxia increased in evening. Notified family of possible respiratory failure and imminent demise. Not good can mobilizing secretions. Hematoma of the neck. Likely secondary to compressions, or difficult intubation (he has rods in the neck). Just monitor, does not seem to be expanding. Marked the margins of the right neck ecchymosis Repeat CT scan showed near complete resolution of the hematoma CVS: Off pressors. Afib resolved, off antiarrhythmics Echo reviewed, unremarkable Mild troponin elevation, not concerning for MA D/c femoral TLC Renal/metabolic: Lactic acidosis cleared Supplement Phos, K GI: Resumed diet. Concern for aspiration, however, accepting risks. Heme: folic acid, has macrocytosis in the setting of alcohol abuse DVT prophylaxis: No anticoagulation secondary to neck hematoma. ICDs The patient is still at serious risk for decline from a respiratory point of view DNR in place per previously known wishes and documentation Patient remains critically ill due to hypoxic respiratory failure. I have personally spent 35 minutes of critical care time in the direct management of this patient. This is a life/limb threatening event. This includes time spent evaluating patient, direct bedside care, chart review, placing orders, interpretation of diagnostic studies, discussion with consultants, patient, and family members, as well as other required patient management activities. This time is exclusive of all separately billable procedures, and teaching time and separate from and in addition to any other critical care service time. Consults & Procedures Consultants: Critical care Procedures: Femoral TLC 06/16 Intubated in the field 06/16 OGT 06/16 Extubated 06/18 Data Medications: Current Inpatient Medications Medications (Trade) Dose Ordered Sig/Christie Route Start Time Stop Time Status Last Admin Dose Admin Piperacillin Sod/ Tazobactam Sod 4.5 gm/Dextrose 120 ml @ 30 mls/hr Q8H IV 06/17/17 03:00 06/23/17 18:59 06/20/17 17:14 30 MLS/HR Piperacillin Sod/ Tazobactam Sod (Consult) 1 ea UD PRN N/A 06/16/17 22:45 06/26/17 22:44 Heparin Sodium (Porcine) (Heparin 10 Unit/ ml 5 ml Flush) 5 ml PRN PRN FLUSH 06/17/17 00:30 07/17/17 00:29 Bisacodyl (Dulcolax Supp) 10 mg MoWeFr@0900 ID 06/17/17 09:00 07/17/17 08:59 06/20/17 08:26 10 MG Polyethylene (Miralax Powder Packet) 17 gm DAILY PO 06/18/17 09:00 07/18/17 08:59 06/20/17 08:25 17 GM Thiamine HCl (Vitamin B-1 Tab) 100 mg QAM PO 06/17/17 09:00 07/17/17 08:59 06/20/17 08:25 100 MG Folic Acid (Folvite Tab) 1 mg QAM PO 06/17/17 09:00 07/17/17 08:59 06/20/17 08:25 1 MG Lorazepam 2 mg/ Syringe 2 ml @ 1 mls/min Q4H PRN IV 06/17/17 23:00 07/16/17 22:59 06/18/17 10:42 1 MLS/MIN Acetylcysteine (Mucomyst 20% Inh Soln) 3 ml Q6R INH 06/19/17 09:30 07/19/17 09:29 06/20/17 19:08 3 ML Multivitamins/ Minerals (Multivitamin W/ Minerals Tab) 1 tab QAM PO 06/20/17 09:00 07/20/17 08:59 06/20/17 08:25 1 TAB Nicotine (Nicoderm Cq 14MG Patch) 1 patch QAM TD 06/21/17 09:00 07/21/17 08:59 Miscellaneous (Remove Nicoderm Patch) 1 ea HS N/A 06/20/17 21:00 07/20/17 20:59 06/20/17 21:00 1 EA Lorazepam (Ativan Tab) 1 mg UD PRN PO 06/20/17 11:15 07/20/17 11:14 06/20/17 23:17 1 MG Fluoxetine HCl (Prozac Cap) 20 mg QAM PO 06/21/17 09:00 07/21/17 08:59 Ipratropium [place] (Atrovent 0.02% 0.5MG/2.5ML Neb) 0.5 mg Q6R INH 06/20/17 15:00 07/20/17 14:59 06/20/17 19:08 0.5 MG Levalbuterol (Xopenex 1.25MG/ 0.5ML Neb) 1.25 mg Q6R INH 06/20/17 15:00 07/20/17 14:59 06/20/17 19:08 1.25 MG Gabapentin (Neurontin Cap) 100 mg Q6H PO 06/20/17 18:00 06/21/17 00:01 06/20/17 23:16 100 MG Gabapentin (Neurontin Tab) 600 mg Q24H PO 06/21/17 08:00 06/21/17 08:01 Gabapentin (Neurontin Cap) 400 mg Q24H PO 06/22/17 08:00 06/22/17 08:01 Gabapentin (Neurontin Cap) 200 mg Q24H PO 06/23/17 08:00 06/23/17 08:01 I & O: 24-Hour Column 06/21/17 08:00 Intake Total 1032 ml Output Total 5400 ml Balance -4368 ml Vital Signs: Date Time Temp Pulse Resp B/P (MAP) Pulse Ox O2 Delivery O2 Flow Rate FiO2 06/20/17 21:03 104 30 92/61 (71) 92 Oxymask 15.0 06/20/17 20:30 104 38 83/57 (66) 87 Oxymask 15.0 06/20/17 20:28 110 41 79/57 (64) 82 Oxymask 15.0 06/20/17 20:03 36.8 114 38 98/63 (75) 88 Oxymask 15.0 06/20/17 20:00 93 Oxymask 15.0 06/20/17 19:13 101 24 95 Mask 14.0 06/20/17 19:03 106 34 122/73 (89) 93 Oxymask 15.0 06/20/17 16:00 113 28 127/68 (87) 82 Nasal Cannula 6.0 06/20/17 16:00 95 Oxymask 15.0 06/20/17 14:07 113 24 91 Mask 13.0 06/20/17 14:00 115 30 110/75 (87) 92 Oxymask 15.0 06/20/17 12:00 95 Oxymask 15.0 06/20/17 12:00 36.8 117 30 118/92 (101) 96 Oxymask 15.0 06/20/17 10:00 115 21 97/73 (81) 93 Oxymask 15.0 06/20/17 08:00 Oxymask 06/20/17 08:00 87 Oxymask 15.0 06/20/17 08:00 37.1 111 91 97/73 (81) 91 Oxymask 15.0 06/20/17 07:05 112 22 91 Mask 15.0 06/20/17 06:03 119 45 131/85 (100) 88 Oxymask 12.0 06/20/17 05:03 123 44 122/77 (92) 89 Oxymask 12.0 06/20/17 04:46 89 Oxymask 12.0 06/20/17 04:12 37.2 128 45 128/85 (99) 89 Oxymask 12.0 06/20/17 03:03 131 41 117/77 (90) 93 Oxymask 12.0 06/20/17 02:03 138 45 108/76 (87) 90 Oxymask 12.0 06/20/17 01:50 118 32 91 Diffusion Mask 7.0 06/20/17 01:03 117 40 135/85 (102) 86 Oxymask 8.0 06/20/17 00:37 90 Oxymask 8.0 06/20/17 00:03 36.6 112 140/95 (110) 91 Oxymask 8.0 Laboratory Results: Last 24 Hours Test 06/20/17 02:45 06/20/17 21:16 White Blood Count 8.58 K/uL Red Blood Count 3.49 M/uL Hemoglobin 11.6 g/dL Hematocrit 33.9 % Mean Corpuscular Volume 97.1 fL Mean Corpuscular Hemoglobin 33.2 pg Mean Corpuscular Hemoglobin Concent 34.2 g/dl Platelet Count 105 K/uL Mean Platelet Volume 10.7 fL Neutrophils (%) (Auto) 88.4 % Lymphocytes (%) (Auto) 6.6 % Monocytes (%) (Auto) 4.7 % Eosinophils (%) (Auto) 0.0 % Basophils (%) (Auto) 0.1 % Neutrophils # (Auto) 7.58 K/uL Lymphocytes # (Auto) 0.57 K/uL Monocytes # (Auto) 0.40 K/uL Eosinophils # (Auto) 0.00 K/uL Basophils # (Auto) 0.01 K/uL RDW Standard Deviation 48.6 fL RDW Coefficient of Variation 13.8 % Immature Granulocyte % (Auto) 0.2 % Immature Granulocyte # (Auto) 0.02 K/uL Prothrombin Time 11.5 SECONDS Prothromb Time International Ratio 1.1 Activated Partial Thromboplast Time 24.9 SECONDS Partial Thromboplastin Ratio 1.0 Sodium Level 139 mmol/L Potassium Level 3.5 mmol/L Chloride Level 104 mmol/L Carbon Dioxide Level 26 mmol/L Anion Gap 9.0 mmol/L Blood Urea Nitrogen 5 mg/dl Creatinine 0.54 mg/dl Est Creatinine Clear Calc Drug Dose 170.9 ml/min Estimated GFR () 142.9 Estimated GFR (Non- 123.3 BUN/Creatinine Ratio 8.4 Random Glucose 114 mg/dl Lactic Acid Level 2.2 mmol/L Calcium Level 8.2 mg/dl Phosphorus Level 2.4 mg/dl Magnesium Level 1.8 mg/dl Total Bilirubin 1.1 mg/dl Direct Bilirubin 0.3 mg/dl Aspartate Amino Transf (AST/SGOT) 19 U/L Alanine Aminotransferase (ALT/SGPT) 18 U/L Alkaline Phosphatase 63 U/L Total Protein 5.3 gm/dl Albumin 2.2 gm/dl Bedside Hemoglobin 10.5 g/dl Bedside Hematocrit 31 % Bedside Blood Gas pH (LAB) 7.45 Bedside Blood Gas pCO2 (LAB) 41 mmHg Bedside Blood Gas pO2 (LAB) 75 mmHg Bedside Blood Gas HCO3 (LAB) 29 meq/L Bedside Blood Gas Total CO2 30 mEq/l Bedside Blood Gas Base Excess (LAB) 5.0 meq/L Bedside Blood Gas O2 Saturation 95.0 % Bedside Sodium 135 mEq/L Bedside Potassium 3.5 mEq/L
[2017-06-21] MEDS: ACETYLCYSTEINE 20% INHAL SOLN ***DISPENSED BY RESP. INH SCH ×4 (01:55→18:53)
[2017-06-21] MEDS: LEVALBUTEROL 1.25MG/0.5ML NEB INH SCH ×4 (01:55→18:53)
[2017-06-21] MEDS: IPRATROPIUM BROMIDE NEB SOLN 0.02% 2.5 ML VIAL INH SCH ×4 (01:55→18:53)
[2017-06-21] MEDS: PIPERACILL/TAZOBAC IV 4.5 GM in DEXTROSE 5% 100ML 100 ML IV SCH (03:27)
[2017-06-21 05:02] LABS: BASO % 0.1 %; BASO ABS # 0.01 K/uL (0-0.2); COMPLETE YES; EOS % 1.7 %; HEMATOCRIT 32.9 % (42-52); IG% 0.4 %; LYMPH % 12.7 %; LYMPH ABS # 1.02 K/uL (1.2-3.4); MEAN CELL VOLUME 99.1 fL (80-100); MEAN CORPUSCULAR HEMOGLOBIN 34.6 pg (25-34); MEAN PLATELET VOLUME 10.2 fL (7.4-10.4); MONO % 9.8 %; NEUT % 75.3 %; PLATELET COUNT 133 K/uL (130-400); RED BLOOD COUNT 3.32 M/uL (4.7-6.1); WHITE BLOOD COUNT 8.06 K/uL (4.8-10.8)
[2017-06-21 05:17] LABS: INR 1.1 (0.9-1.1); PARTIAL THROMBOPLASTIN RATIO 1.3
[2017-06-21 05:30] LABS: BLOOD UREA NITROGEN 6 mg/dl (7-18); BUN/CREATININE RATIO 16.5 (10-20); CALCIUM 8.7 mg/dl (8.5-10.1); CARBON DIOXIDE 31 mmol/L (21-32); CHLORIDE 104 mmol/L (98-107); CREATININE 0.36 mg/dl (0.60-1.40); GLUCOSE 89 mg/dl (70-99); MAGNESIUM 2.5 mg/dl (1.8-2.4); SODIUM 139 mmol/L (136-145)
[2017-06-21 05:38] LABS: ALKALINE PHOSPHATASE 70 U/L (45-117); ALT/SGPT 17 U/L (12-78); AST/SGOT 18 U/L (15-37); PHOSPHORUS 3.8 mg/dl (2.5-4.9)
[2017-06-21] MEDS ORDERED: GABAPENTIN 600MG X1 DOSE PO SCH (08:00)
--- NOTE | 2017-06-21 08:48 | DIAGNOSTIC IMAGING REPORT ---
CHEST ONE VIEW PORTABLE CLINICAL HISTORY: hypoxia hypoxia. Dyspnea. COMPARISON STUDY: 06/20/2017 FINDINGS: Improving components of pulmonary edema. Bilateral parenchymal infiltrative changes considerably improved in the mid to upper lungs. There are moderate persistent infiltrative changes in the lung bases with mild atelectatic change left lower lobe. IMPRESSION: Moderate improvement in the findings of pulmonary edema versus bilateral diffuse parenchymal infiltrative change The above report was generated using voice recognition software. It may contain grammatical, syntax or spelling errors. Electronically signed by: James Parrish M.D. 06/21/2017 8:47 AM Dictated Date/Time: 06/21/2017 8:47 AM
[2017-06-21] MEDS: POLYETHYLENE (MIRALAX) 17 GM PACK PO SCH (09:08)
[2017-06-21] MEDS: CEROVITE ADV FORMULA TAB PO SCH (09:09)
[2017-06-21] MEDS: FLUOXETINE HCL 20 MG CAP PO SCH (09:09)
[2017-06-21] MEDS: THIAMINE HCL 100 MG TAB PO SCH (09:09)
[2017-06-21] MEDS: NICOTINE 14 MG/24 HR TDSY TD SCH (09:10)
[2017-06-21] MEDS ORDERED: SODIUM CHLOR 0.45% + 20MEQ KCL 1,000 ML IV SCH (10:30)
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
[2017-06-21] MEDS: AMOXICILLIN/CLAVULANATE TAB 875 MG TAB PO SCH (16:53)
--- NOTE | 2017-06-21 19:06 | Psychiatric Progress Notes ---
Psychiatric Progress Note Date of Service Jun 21, 2017. Notes ID: Patient reviewed with liaison nurse. Interim progress reviewed. Patient seen with mother and sister at bedside. CC: reassess capacity HPI: Patient continues to report that he tooks pills intentionally but that it was not a suicide attempt, he was open about his smoking and drinking and realizes that "those days are over". Mother and sister agree to secure home meds and are making arrangements for 24 hour supervision at home but worry about transport and the financial aspects. Palliative care consult seen. He has been enjoying interactions with pastoral care and was joking with family at bedside. He was started on Prozac by primary team which he is tolerating well. He has some SOB but tolerating nasal cannula after refusing to continue with bipap. ROS: SOB as above, no symptoms of withdrawal. MSE: alert, cooperative, thoughts organized, oriented, denies SI/HI/roblero. Minimizing the severity of his medical condition. Agrees that he won't drink ETOH or smoke, voiced good understanding of risks of respiratory depression with medications. Imp: depressive disorder as per initial consult Plan: patient is not actively suicidal and his current medical decision making is consistent with his previously stated wishes and this is confirmed by family family will be securing meds and no longer allowing access to ETOH at home] he has had palliative care consult and will be going home with home health with likely transition to Hospice primary care provider/hospice physician can oversee Prozac, reviewed typical course of treatment with family they thanked me for stopping by and for psych involvement in his care
--- NOTE | 2017-06-21 19:44 | Critical Care Progress Note ---
Critical Care Progress Note Date of Service Jun 21, 2017. Attending Dr. Malhotra Subjective No acute events overnight. Patient tolerated CPAP. Per patient, He reports non- productive cough. He denies difficulty breathing, Chest pain, palpitation, N/V, abdominal pain, Objective Abd: Soft,obese Ext: mild pedal edema, contracted extremities PERSONAL BANKING ADVISOR: moves upper extremities, plegic lower extremities. AAO x 3. GENERAL: alert, no distress EYE EXAM: normal conjunctiva, PERRL and EOM's grossly intact OROPHARYNX: no exudate, no erythema, lips, buccal mucosa, and tongue normal and mucous membranes are moist NECK: supple, Right-sided neck ecchymoses LUNGS: [place] coarse breath sounds. HEART: no murmurs, S1 normal and S2 normal ABDOMEN: abdomen soft, non-tender, normo-active bowel sounds, no masses, no rebound or guarding. BACK: Back is symmetrical on inspection and there is no deformity, no midline tenderness, no CVA tenderness. UPPER EXTREMITIES: upper extremities are grossly normal. LOWER EXTREMITIES: +[place] pitting pedal edema, NEURO EXAM: Normal sensorium, normal speech, no gross weakness of arms, plegic LE. 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 Chronic alcohol use PERSONAL BANKING ADVISOR/Neuro: Substance abuse, Alcohol abuse GCS: 15 CT head dated 06/16: Result: No acute intracranial hemorrhage, midline shift or territorial ischemia con't Thiamine Respiratory: Aspiration Pneumonia Converted IV Zosyn to PO Augmentin HOB up 30 degrees: Yes Respiratory prophylaxis: Xopenex D/C BIPAP Cardiovascular: CV drips: Remains off vasoactive medications ECHO: Echo dated 06/17 : reviewed Fluids/Renal: IV Fluids: Fluids from intravenous medications Net Urine: Increased output today, aching at least half mL per kilo per hour [place]: Present GI/Nutrition: Feeding: AHA Heart Healthy Bowel movements: Yes Stool softeners: Miralax daily Endocrine: Last 24 hour glucose: Ranging 90's to100's Hematology: Hemoglobin 11.5 DVT prophylaxis: Heparin 5000 3 times a day Infectious Disease/Immunology: Tmax:37.1 no leukocytosis Antimicrobials: day 6 D/C'd Zosyn Convert to PO Augmentin 875 mg BID x 10 days Cultures: Blood: No growth Urine: 06/16: Klebsiella Pneumoniae MRSA: Negative swab Goals of care were discussed with patient and family. Palliative care also consulted and decision was made for comfort measures with the plan of eventual discharge to home hospice. Further Labs were d/c'd and BIPAP was d/c'd Resident Physician Supervision Note: Dr. Campbell was resident physician during care of patient. I separately evaluated patient and did history and exam. I discussed the case with the resident and generally agree with the findings and plan. Had discussion with patient, family, palliative care. Patient does not want life-sustaining measures. Feels he can actually perform pulmonary toilet better in his own wheelchair as well as at home where the countertops R at a level more appropriate for him. He is been quadriplegic for over 20 years and is obviously very knowledgeable about his ability to care for himself. At this point we will discontinue any form of invasive ventilation. He understands that he is at risk for airway obstruction secondary to poor secretion clearance. He understands that if he were to obstruct his airway this could lead to his . Accordingly we have downgraded him from ICU status. Documented By: Keyshawn Malhotra DO Consults & Procedures Consultants: Critical care Procedures: Femoral TLC 06/16 Intubated in the field 06/16 OGT 06/16 Extubated 06/18 Data Medications: Current Inpatient Medications Medications (Trade) Dose Ordered Sig/Christie Route Start Time Stop Time Status Last Admin Dose Admin Heparin Sodium (Porcine) (Heparin 10 Unit/ ml 5 ml Flush) 5 ml PRN PRN FLUSH 06/17/17 00:30 07/17/17 00:29 Bisacodyl (Dulcolax Supp) 10 mg MoWeFr@0900 TX 06/17/17 09:00 07/17/17 08:59 06/20/17 08:26 10 MG Polyethylene (Miralax Powder Packet) 17 gm DAILY PO 06/18/17 09:00 07/18/17 08:59 06/21/17 09:08 17 GM Thiamine HCl (Vitamin B-1 Tab) 100 mg QAM PO 06/17/17 09:00 07/17/17 08:59 06/21/17 09:09 100 MG Folic Acid (Folvite Tab) 1 mg QAM PO 06/17/17 09:00 07/17/17 08:59 06/21/17 09:08 1 MG Lorazepam 2 mg/ Syringe 2 ml @ 1 mls/min Q4H PRN IV 06/17/17 23:00 07/16/17 22:59 06/18/17 10:42 1 MLS/MIN Acetylcysteine (Mucomyst 20% Inh Soln) 3 ml Q6R INH 06/19/17 09:30 07/19/17 09:29 06/21/17 18:53 3 ML Multivitamins/ Minerals (Multivitamin W/ Minerals Tab) 1 tab QAM PO 06/20/17 09:00 07/20/17 08:59 06/21/17 09:09 1 TAB Nicotine (Nicoderm Cq 14MG Patch) 1 patch QAM TD 06/21/17 09:00 07/21/17 08:59 06/21/17 09:10 1 PATCH Miscellaneous (Remove Nicoderm Patch) 1 ea HS N/A 06/20/17 21:00 07/20/17 20:59 06/20/17 21:00 1 EA Lorazepam (Ativan Tab) 1 mg UD PRN PO 06/20/17 11:15 07/20/17 11:14 06/20/17 23:17 1 MG Fluoxetine HCl (Prozac Cap) 20 mg QAM PO 06/21/17 09:00 07/21/17 08:59 06/21/17 09:09 20 MG Ipratropium [place] (Atrovent 0.02% 0.5MG/2.5ML Neb) 0.5 mg Q6R INH 06/20/17 15:00 07/20/17 14:59 06/21/17 18:53 0.5 MG Levalbuterol (Xopenex 1.25MG/ 0.5ML Neb) 1.25 mg Q6R INH 06/20/17 15:00 07/20/17 14:59 06/21/17 18:53 1.25 MG Gabapentin (Neurontin Cap) 400 mg Q24H PO 06/22/17 08:00 06/22/17 08:01 Gabapentin (Neurontin Cap) 200 mg Q24H PO 06/23/17 08:00 06/23/17 08:01 Amoxicillin/ Clavulanate Potassium (Augmentin Tab) 875 mg BIDM PO 06/21/17 16:30 06/25/17 23:59 06/21/17 16:53 875 MG I & O: 24-Hour Column 06/22/17 08:00 Intake Total 480 ml Output Total 900 ml Balance -420 ml Vital Signs: Date Time Temp Pulse Resp B/P (MAP) Pulse Ox O2 Delivery O2 Flow Rate FiO2 06/21/17 18:54 101 24 89 Nasal Cannula 6.0 06/21/17 16:16 36.8 100 26 89 6.0 06/21/17 14:48 100 26 89 Nasal Cannula 6.0 06/21/17 14:00 106 26 136/92 (107) 89 Nasal Cannula 4.0 06/21/17 12:00 91 Nasal Cannula 06/21/17 12:00 100 22 105/77 (86) 91 Nasal Cannula 4.0 06/21/17 10:00 103 24 108/75 (86) 90 Nasal Cannula 4.0 06/21/17 08:00 36.8 107 32 110/71 (84) 94 CPAP 10.0 06/21/17 08:00 CPAP 06/21/17 08:00 91 CPAP 06/21/17 07:38 97 98 10.0 06/21/17 07:36 106 26 94 BiPAP/CPAP 10.0 06/21/17 06:03 98 27 106/65 (79) 93 CPAP 06/21/17 05:36 97 98 12.0 06/21/17 05:03 100 26 111/79 (90) 92 CPAP 06/21/17 04:03 37.1 94 22 101/68 (79) 93 CPAP 06/21/17 04:00 94 CPAP 12.0 06/21/17 03:03 98 24 101/71 (81) 94 CPAP 06/21/17 02:03 99 23 101/66 (78) 94 CPAP 06/21/17 01:55 96 20 96 BiPAP/CPAP 11.0 06/21/17 01:55 101 96 15.0 06/21/17 01:03 95 24 94/66 (75) 94 CPAP 06/21/17 00:03 36.9 98 28 86/51 (63) 93 CPAP 06/20/17 23:59 89 CPAP 06/20/17 23:03 101 24 99/64 (76) 94 CPAP 06/20/17 22:03 101 28 105/71 (82) 95 CPAP 06/20/17 21:50 101 95 15.0 06/20/17 21:50 101 18 95 CPAP 15.0 06/20/17 21:03 104 30 92/61 (71) 92 Oxymask 15.0 06/20/17 20:30 104 38 83/57 (66) 87 Oxymask 15.0 06/20/17 20:28 110 41 79/57 (64) 82 Oxymask 15.0 06/20/17 20:03 36.8 114 38 98/63 (75) 88 Oxymask 15.0 06/20/17 20:00 93 Oxymask 15.0 Laboratory Results: Last 24 Hours Test 06/20/17 21:16 06/21/17 04:41 Bedside Hemoglobin 10.5 g/dl Bedside Hematocrit 31 % Bedside Blood Gas pH (LAB) 7.45 Bedside Blood Gas pCO2 (LAB) 41 mmHg Bedside Blood Gas pO2 (LAB) 75 mmHg Bedside Blood Gas HCO3 (LAB) 29 meq/L Bedside Blood Gas Total CO2 30 mEq/l Bedside Blood Gas Base Excess (LAB) 5.0 meq/L Bedside Blood Gas O2 Saturation 95.0 % Bedside Sodium 135 mEq/L Bedside Potassium 3.5 mEq/L White Blood Count 8.06 K/uL Red Blood Count 3.32 M/uL Hemoglobin 11.5 g/dL Hematocrit 32.9 % Mean Corpuscular Volume 99.1 fL Mean Corpuscular Hemoglobin 34.6 pg Mean Corpuscular Hemoglobin Concent 35.0 g/dl Platelet Count 133 K/uL Mean Platelet Volume 10.2 fL Neutrophils (%) (Auto) 75.3 % Lymphocytes (%) (Auto) 12.7 % Monocytes (%) (Auto) 9.8 % Eosinophils (%) (Auto) 1.7 % Basophils (%) (Auto) 0.1 % Neutrophils # (Auto) 6.07 K/uL Lymphocytes # (Auto) 1.02 K/uL Monocytes # (Auto) 0.79 K/uL Eosinophils # (Auto) 0.14 K/uL Basophils # (Auto) 0.01 K/uL RDW Standard Deviation 50.0 fL RDW Coefficient of Variation 13.7 % Immature Granulocyte % (Auto) 0.4 % Immature Granulocyte # (Auto) 0.03 K/uL Prothrombin Time 12.0 SECONDS Prothromb Time International Ratio 1.1 Activated Partial Thromboplast Time 34.3 SECONDS Partial Thromboplastin Ratio 1.3 Sodium Level 139 mmol/L Potassium Level 4.0 mmol/L Chloride Level 104 mmol/L Carbon Dioxide Level 31 mmol/L Anion Gap 4.0 mmol/L Blood Urea Nitrogen 6 mg/dl Creatinine 0.36 mg/dl Est Creatinine Clear Calc Drug Dose 256.3 ml/min Estimated GFR () > 150.0 Estimated GFR (Non- 145.6 BUN/Creatinine Ratio 16.5 Random Glucose 89 mg/dl Calcium Level 8.7 mg/dl Phosphorus Level 3.8 mg/dl Magnesium Level 2.5 mg/dl Total Bilirubin 1.0 mg/dl Direct Bilirubin 0.3 mg/dl Aspartate Amino Transf (AST/SGOT) 18 U/L Alanine Aminotransferase (ALT/SGPT) 17 U/L Alkaline Phosphatase 70 U/L Total Protein 5.7 gm/dl Albumin 2.4 gm/dl Resident Tracking Resident Involvement: Resident Care Provided Care Provided: Adult [facility]
[2017-06-22] VITALS (8 sets, daily range): BP systolic 107–142; BP diastolic 75–104; PULSE 99–123; TEMP 36.5–36.6; O2SAT 88–95
[2017-06-22] MEDS: LEVALBUTEROL 1.25MG/0.5ML NEB INH SCH ×4 (01:59→19:11)
[2017-06-22] MEDS: IPRATROPIUM BROMIDE NEB SOLN 0.02% 2.5 ML VIAL INH SCH ×4 (01:59→19:11)
[2017-06-22] MEDS: ACETYLCYSTEINE 20% INHAL SOLN ***DISPENSED BY RESP. INH SCH ×4 (02:00→19:14)
[2017-06-22] MEDS: POLYETHYLENE (MIRALAX) 17 GM PACK PO SCH ×2 (08:00→08:08)
[2017-06-22] MEDS ORDERED: GABAPENTIN 400MG X1 DOSE PO SCH (08:00)
[2017-06-22] MEDS: CEROVITE ADV FORMULA TAB PO SCH (08:08)
[2017-06-22] MEDS: FLUOXETINE HCL 20 MG CAP PO SCH (08:08)
[2017-06-22] MEDS: THIAMINE HCL 100 MG TAB PO SCH (08:08)
[2017-06-22] MEDS: AMOXICILLIN/CLAVULANATE TAB 875 MG TAB PO SCH ×2 (08:08→17:30)
[2017-06-22] MEDS: NICOTINE 14 MG/24 HR TDSY TD SCH (08:11)
[2017-06-22] MEDS: BISACODYL 10 MG SUPP PR SCH (08:38)
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
--- NOTE | 2017-06-22 13:54 | Palliative Care Progress Note ---
Palliative Care Progress Note Date of Service Jun 22, 2017. Subjective Pt evaluation today including: conversation w/ patient, conversation w/ family (mother Leland, sister Pretty), physical exam, chart review, conversation w/ eco industrial [employer] consultant (Dr. Powers), review of inpatient medication list Pain: 0/10 PO Intake: tolerating diet Voiding: rae catheter in place Patient is awake, alert and oriented. Long discussion about goals of care. Patient really wants to go home [facility] and does not want to be in hospital. He is requesting a hospice evaluation. I fully explained hospice to the patient with the mother and sister in the room. Dr. Powers was present for some of conversation. I also explained and completed a POLST form with patient. Сергей was not quite ready to say that he would not want to come back to the hospital if indicated but he wants to "give it a try with hospice." His goal is for comfort and to be at home. Patient is up in his wheelchair from home. He feels he is at his baseline as far as functional status. He is still requiring oxygen at 4LNC, respirations are tachypneic and slightly labored although patient denies any complaints. Review of Systems Constitutional: + weakness (baseline) ENT: No trouble swallowing Respiratory: No cough, No shortness of breath Cardiac: No chest pain, No edema Abdomen: No pain, No nausea, No vomiting Male : No problem reported Neurologic: + numbness/tingling (numbness of bilateral lower extremities) Psychiatric: No depression symptoms, No anxiety Objective Vital Signs Date Time Temp Pulse Resp B/P (MAP) Pulse Ox O2 Delivery O2 Flow Rate FiO2 06/22/17 08:05 36.5 123 22 142/104 (117) 88 Nasal Cannula 4.0 06/22/17 08:00 91 Nasal Cannula 4.0 06/22/17 06:59 101 20 88 Nasal Cannula 4.0 06/22/17 01:59 99 20 92 Nasal Cannula 6.0 06/22/17 00:00 Nasal Cannula 3.0 06/21/17 23:45 36.9 104 18 121/54 (76) 92 Nasal Cannula 4.0 06/21/17 20:00 Nasal Cannula 3.0 06/21/17 18:54 101 24 89 Nasal Cannula 6.0 06/21/17 16:16 36.8 100 26 89 6.0 06/21/17 14:48 100 26 89 Nasal Cannula 6.0 06/21/17 14:00 106 26 136/92 (107) 89 Nasal Cannula 4.0 Physical Exam General Appearance: no apparent distress ENT: hearing grossly normal Neck: supple, no JVD Respiratory/Chest: no respiratory distress, no accessory muscle use, + rhonchi Cardiovascular: regular rate, rhythm, no edema, + normal peripheral pulses Abdomen: normal bowel sounds, non tender, soft Extremities: + pertinent finding (extremities are atrophied. 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 Patient absolutely does not want to be intubated again. -Patient's goal is for comfort and to be at home. He would like to try hospice. Referral to [facility], possible discharge tomorrow at Dr. Powers's discretion. -Patient okay with continuing PO abx. -Has no pain or symptoms. Thank you again for this consult. Please contact me with any further palliative care needs. Palliative Performance Scale: 30 % Continued [facility] stay due to: home environment unsafe for pt Discharge planning: uncertain
[2017-06-23 02:00] VITALS: PULSE 102; O2SAT 96
[2017-06-23] MEDS: LEVALBUTEROL 1.25MG/0.5ML NEB INH SCH ×2 (02:00→07:44)
[2017-06-23] MEDS: IPRATROPIUM BROMIDE NEB SOLN 0.02% 2.5 ML VIAL INH SCH ×2 (02:00→07:44)
[2017-06-23] MEDS: ACETYLCYSTEINE 20% INHAL SOLN ***DISPENSED BY RESP. INH SCH ×2 (02:00→07:44)
[2017-06-23] MEDS ORDERED: FLV1 PO (07:11)
[2017-06-23] MEDS ORDERED: THM100 PO (07:11)
[2017-06-23] MEDS ORDERED: PSEU60TA80 PO (07:11)
[2017-06-23] MEDS ORDERED: AMOX1TAB43 PO (07:11)
[2017-06-23] MEDS ORDERED: NICO14DI5 TD (07:11)
[2017-06-23] MEDS ORDERED: IPRA1AER2 INH (07:11)
[2017-06-23] MEDS ORDERED: FLUO20CA36 PO (07:11)
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
[2017-06-23 07:29] VITALS: PULSE 104; O2SAT 94
[2017-06-23 07:52] VITALS: BP 135/97; PULSE 98; TEMP 36.5; O2SAT 94
[2017-06-23 08:00] VITALS: O2SAT 94
[2017-06-23] MEDS ORDERED: GABAPENTIN 200MG X1 DOSE PO SCH (08:00)
[2017-06-23] MEDS: POLYETHYLENE (MIRALAX) 17 GM PACK PO SCH (08:00)
[2017-06-23] MEDS: AMOXICILLIN/CLAVULANATE TAB 875 MG TAB PO SCH (08:14)
[2017-06-23] MEDS: THIAMINE HCL 100 MG TAB PO SCH (08:15)
[2017-06-23] MEDS: NICOTINE 14 MG/24 HR TDSY TD SCH (08:15)
[2017-06-23] MEDS: CEROVITE ADV FORMULA TAB PO SCH (08:15)
[2017-06-23] MEDS: FLUOXETINE HCL 20 MG CAP PO SCH (08:15)
[2017-06-23] MEDS ORDERED: IPRASOL4 INH (08:38)
[2017-06-23 09:01] VITALS: BP 135/97; PULSE 98; TEMP 36.5; O2SAT 94
[2017-06-23 10:00] VITALS: O2SAT 85
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
== END 2017-06-23 12:34 | disposition hospice, home (50) | DRG 917 ==
LOC: EDBD 17:43 → C.ED 17:45 → C.MSICU 22:06 → ENRESERV 22:13 → C.4E 06-21 17:23
PROVIDERS: ADMIT Hospitalist; ATTEND Hospitalist
PROC: 5A1945Z Respiratory Ventilation, 24-96 Consecutive Hours (ICD-10-PCS; principal; 2017-06-16)
DX: T50.992A Poisoning by other drugs, medicaments and biological substances, intentional self-harm, initial encounter (principal); J69.0 Pneumonitis due to inhalation of food and vomit; I46.9 Cardiac arrest, cause unspecified; G82.50 Quadriplegia, unspecified; J96.91 Respiratory failure, unspecified with hypoxia; G93.1 Anoxic brain damage, not elsewhere classified; R57.9 Shock, unspecified; N39.0 Urinary tract infection, site not specified; F32.9 Major depressive disorder, single episode, unspecified; T14.91 Suicide attempt; F19.10 Other psychoactive substance abuse, uncomplicated; B96.1 Klebsiella pneumoniae [K. pneumoniae] as the cause of diseases classified elsewhere; F10.10 Alcohol abuse, uncomplicated; F17.210 Nicotine dependence, cigarettes, uncomplicated; Z66 Do not resuscitate; Z51.5 Encounter for palliative care; R79.89 Other specified abnormal findings of blood chemistry; D75.89 Other specified diseases of blood and blood-forming organs; S10.93XA Contusion of unspecified part of neck, initial encounter; X58.XXXA Exposure to other specified factors, initial encounter; Z79.82 Long term (current) use of aspirin; Z79.899 Other long term (current) drug therapy

== ENCOUNTER → 2017-07-14 | Outpatient (CLI) | payer OTHER ==
[~2017-07-14] MED LIST changes: +AMOX1TAB43 PO; -ANDG TOP; -ASPI81TA21 PO; +BACIOIN2 TOP; +BISA10SU RE; -CLC100 PO; +CLC100X PO; -CONSTULOSE PO; -DIAZ5TAB PO; -FLU IM; +FLUO20CA36 PO; +FLV1 PO; +IPRA1AER2 INH; -MRLP120 PO; +NICO14DI5 TD; +POLY335019 PO; -POLY335025; +THM100 PO
[2017-07-14 13:37] LABS: URINE APPEARANCE CLEAR (CLEAR); URINE BILIRUBIN NEG (NEG); URINE COLOR YELLOW; URINE NITRITE NEG (NEG); URINE PH 6.5 (4.5-7.5); URINE SPECIFIC GRAVITY 1.012 (1.000-1.030); UROBILINOGEN NEG (NEG)
[2017-07-14 13:46] LABS: MANUAL MICROSCOPIC REQUIRED? NO; REVIEW REQ? YES
== END | disposition home or self-care (01) ==
LOC: C.LABSPEC 11:45
PROVIDERS: ATTEND Family Medicine
DX: N31.9 Neuromuscular dysfunction of bladder, unspecified (principal)

== ENCOUNTER → 2017-07-28 | Outpatient (CLI) | payer OTHER ==
--- NOTE | 2017-07-28 10:32 | DIAGNOSTIC IMAGING REPORT ---
CHEST 2 VIEWS ROUTINE HISTORY: 51 years-old Male ASPIRATION PNEUMONIA acute aspiration pneumonia with altered mental status. Initial exam. COMPARISON: Portable chest radiograph 06/21/2017 TECHNIQUE: ] AP view of the chest FINDINGS: Cardiac silhouette is upper limits of normal. There is no pneumothorax. There is mild blunting of the left costophrenic angle. There is improved aeration of the bilateral lungs with hazy ill-defined subsegmental right basilar opacity. There is mild convex right curvature of the midthoracic spine. Bones are grossly intact. Hardware seen within the lower cervical spine. IMPRESSION: 1. Improved aeration of the bilateral lungs with hazy right basilar opacity suggesting atelectasis or pneumonia. 2. Blunting of the left costophrenic angle suggests trace pleural effusion. The above report was generated using voice recognition software. It may contain grammatical, syntax or spelling errors. Electronically signed by: Serafin Keyes M.D. 07/28/2017 10:31 AM Dictated Date/Time: 07/28/2017 10:29 AM
[2017-07-28 13:18] LABS: BLOOD UREA NITROGEN 4 mg/dl (7-18); BUN/CREATININE RATIO 7.3 (10-20); CALCIUM 9.3 mg/dl (8.5-10.1); CARBON DIOXIDE 27 mmol/L (21-32); CHLORIDE 104 mmol/L (98-107); CREATININE 0.55 mg/dl (0.60-1.40); GLUCOSE 105 mg/dl (70-99); SODIUM 137 mmol/L (136-145)
== END | disposition home or self-care (01) ==
LOC: C.RADPV 10:05
PROVIDERS: ATTEND Family Medicine
DX: J69.0 Pneumonitis due to inhalation of food and vomit (principal); F32.9 Major depressive disorder, single episode, unspecified

== ENCOUNTER → 2017-08-19 | Outpatient (CLI) | payer OTHER ==
[~2017-08-19] MED LIST changes: -IPRA1AER2 INH
[2017-08-19 10:21] LABS: URINE APPEARANCE CLOUDY (CLEAR); URINE BILIRUBIN NEG (NEG); URINE COLOR YELLOW; URINE EPITHELIAL CELL AUTO 0-5 /lpf (0-5); URINE NITRITE POS (NEG); URINE SPECIFIC GRAVITY 1.011 (1.000-1.030); UROBILINOGEN NEG (NEG)
[2017-08-19 10:35] LABS: MANUAL MICROSCOPIC REQUIRED? NO; REVIEW REQ? NO
--- NOTE | 2017-08-23 14:12 | CODING QUERY NO DIAGNOSIS ---
: 1965 TREATMENT RENDERED WITHOUT A DIAGNOSIS To promote full compliance with coding requirements relating to patient care, physician participation is requested in all cases of roustabout crew leader uncertainty. Please assist us with providing a diagnosis/symptom for the test(s) below: A diagnosis/symptom was not documented on your Order. A valid diagnosis/symptom is required to bill all insurances. Please remember that we are unable to code a diagnosis of rule out, probable, possible, questionable, or suspected. Tests that require a diagnosis: DOS: 08/19/17 * UA CLEAN CATCH DIAGNOSIS: * URINE CULTURE CLEAN CATCH DIAGNOSIS: Provider Signature: Date: Thank you Nicole Spangler Health Information Management Once completed, please kindly fax back to [phone] For questions please call [phone]
== END | disposition home or self-care (01) ==
LOC: C.LABSPEC 09:42
PROVIDERS: ATTEND Family Medicine
DX: G82.53 Quadriplegia, C5-C7 complete (principal)

== ENCOUNTER → 2017-10-06 | Outpatient (CLI) | payer OTHER | END | disposition home or self-care (01) | LOC: C.LABSPEC 10:41 | PROVIDERS: ATTEND Family Medicine | DX: N39.0 Urinary tract infection, site not specified (principal) ==

== ENCOUNTER → 2017-11-08 | Outpatient (CLI) | payer OTHER | END | disposition home or self-care (01) | LOC: C.LABSPEC 11:01 | PROVIDERS: ATTEND Nurse Practitioner Adult Health | DX: N31.9 Neuromuscular dysfunction of bladder, unspecified (principal); R39.9 Unspecified symptoms and signs involving the genitourinary system ==

== ENCOUNTER → 2017-12-13 | Outpatient (CLI) | payer OTHER | END | disposition home or self-care (01) | LOC: C.LABPVFM 09:44 | PROVIDERS: ATTEND Urology | DX: E29.1 Testicular hypofunction (principal) ==

== ENCOUNTER → 2018-06-15 | Outpatient (CLI) | payer OTHER ==
[~2018-06-15] MED LIST changes: +THIA100T27 PO; -THM100 PO
== END | disposition home or self-care (01) ==
LOC: C.LABPVFM 09:51
PROVIDERS: ATTEND Urology
DX: C62.90 Malignant neoplasm of unspecified testis, unspecified whether descended or undescended (principal)

== ENCOUNTER → 2018-06-20 | Outpatient (CLI) | payer OTHER | END | disposition home or self-care (01) | LOC: C.LABSPEC 15:19 | PROVIDERS: ATTEND Family Medicine | DX: N39.0 Urinary tract infection, site not specified (principal) ==

== ENCOUNTER 2023-07-26 15:55 | Observation (INO) ==
[2023-07-26] MEDS ORDERED: SODIUM CHLORIDE 0.9% 1,000 ML IV STA (16:21)
--- NOTE | 2023-07-26 16:34 | Emergency Department Note ---
Impression & Plan Symptomatic anemia, Low hematocrit, Acute UTI (urinary tract infection) ED Provider Note NAME: COLLEEN MARRUFO AGE: 57 SEX: M : 1965 ARRIVES VIA: Walk-In INFORMANT: Patient, ED PROVIDER(S): Nathan Kaba DO CHIEF COMPLAINT: Weakness HPI: The patient is a 57-year-old male who presented to the emergency department at the request of his primary care physician. The patient has been noticing generalized weakness and some shortness of breath. The patient had routine outpatient lab studies done and was found to have a very low hemoglobin. He was advised to go to the emergency department for further evaluation. He states he does have a history of rectal bleeding. He has a hemorrhoid which has been bleeding last month. He states he has no current black stools or bloody stools. The patient presented to the emergency department depressed with his primary care physician for further evaluation as well as possible transfusion. ROS: See above HPI for pertinent positives & negatives. A total of 10 systems reviewed and were otherwise negative. PAST MEDICAL HISTORY: See Below PAST SURGICAL HISTORY: See Below FAMILY HISTORY: See Below SOCIAL HISTORY: See Below HOME MEDICATIONS: See Below ALLERGIES: See Below VITALS: See Below PHYSICAL EXAMINATION: GENERAL: Patient is awake alert in no acute distress patient is resting comfortably and showing no signs of anxiety EYES: The conjunctivae are pale. The pupils are round and reactive. EARS, NOSE, MOUTH AND THROAT: The nose is without any evidence of any deformity. RESPIRATORY: Normal respiratory effort is noted there is no evidence of wheezing rhonchi or rales CARDIOVASCULAR: Regular rate and rhythm noted there no murmurs rubs or gallops normal S1 normal S2. GASTROINTESTINAL: The abdomen is soft. Abdomen is nontender. Rectal exam revea led brown stool which was heme-negative. MUSCULOSKELETAL/EXTREMITIES: There is no evidence of gross deformity full range of motion is noted in the hips and shoulders. SKIN: Skin is warm and dry. Skin is pale. Trace pedal edema was noted bilaterally. NEUROLOGIC: Patient is awake alert and oriented x3 MEDICAL DECISION MAKING: The patient is a 57-year-old male who presented to the emergency department for an evaluation of anemia. The patient was noted to have a low hemoglobin on outpatient laboratory studies. He came to the emergency department for further evaluation. The patient had no abdominal tenderness on physical exam although he does have a history of quadriplegia from a previous cervical spine injury. Rectal exam revealed heme-negative stool. The patient was consented for blood by myself. Blood transfusion was ordered. I discussed the patient's condition with the on-call [facility]. They have agreed to evaluate the patient in the emergency department for further management and disposition. The patient initially was hypotensive. This did somewhat improve in the emergency department after IV fluids. Triage Nursing notes reviewed. Prior medical records reviewed Vital Signs: reviewed and remarkable for hypotension. Differential diagnosis: Infection, dehydration, metabolic abnormality, hypo/hyperglycemia, electrolyte disturbance, anemia, hypoxia, cardiac sources, intracerebral event, toxicologic, neurologic, as well as other pathologies. ER treatment provided: See below Diagnostics interpreted by me: ECG: EKG was obtained in the emergency department. My interpretation is normal sinus rhythm at 88 bpm. There is no ectopy. There is no acute ST segment abnormalities noted. This was compared to a tracing from June 20, 2017. No changes were noted. Cardiac Monitoring: An order was placed for continuous cardiac monitoring. The monitor shows a rate of 69 bpm with sinus rhythm. Laboratory studies: As stated above and show below. Imaging studies: See below. Radiographic imaging was reviewed by myself Consultation(s): I discussed this case with Dr. Esparza who is on-call for the [facility]. ED COURSE: Procedures: none Critical Care: I have personally spent greater than 45 minutes of critical care time in the direct management of this patient. This includes bedside care, interpretation of diagnostic studies, and testing, discussion with consultants, patient, and family members, and other required patient management activities. This 45 minutes is in excess of all separately billable procedures. Past Med/Surg History Medical History Cardiac arrest hx of--roughly 5yrs ago d/t drug overdose--no issues since, no applications tester Constipation History of cardiac arrest hx of--d/t drug overdose--no issues since, no applications tester History of cigarette smoking 1/2 ppd History of drug overdose Opiate History of testicular cancer Dx 2004, sx/radiation Hypogonadism in male Major depressive disorder with single episode Muscle spasticity Neurogenic bladder Quadriplegia, C1-C4, complete Recurrent urinary tract infection Testicular cancer (~2004) diagnosed 2004--sx/radiation Urinary tract infection per pt constant issue Uses [place] catheter Surgical History H/O neck surgery roughly 20yrs ago d/t accident--limited ROM of neck History of cancer surgery removal of right testicle d/t cancer History of colonoscopy History of esophagogastroduodenoscopy (EGD) History of hemorrhoidectomy History of wisdom tooth extraction Status post orchiopexy at 7 yrs old Family History Unknown Prostate cancer Cancer Hypertension Sister Breast cancer Family/Other Breast cancer Father Prostate cancer Melanoma Myocardial infarction Mother Hypertension Family history of reaction to anesthesia nausea/vomiting Sister Ovarian cancer Brain tumor meningioma Sister Schizophrenia Brain tumor meningioma Denies family history of Colon cancer Social History Smoking Status: Never smoker Age Quit Using Tobacco: 52; Second Hand Exposure: No; Do You Dip or Chew Tobacco: No; Tobacco Cessation Education Requested by Patient: No Hx Alcohol Use: No Hx Substance Use: No Preferred Language: Bahraini Communication Ability: Effective Visual Impairment: No Limitations Hearing Ability: Normal Orthopedic Coder Required: No Beliefs That Will Affect Care: None marital status: Single Current Living Situation: Family Current Living Situation Comment: next door to mother, has in home care givers during the day current occupational status: disabled Other Information That Helps Us Care for You: Yes (paralyzed, wheelchair bound) Feels Safe at Home: Yes Childhood Exposure to Second-Hand Smoke: No Diet: regular Diet Comment: regular caffeine: Yes during the past year weight has: remained stable Dental Care, Regularly: No Physical Activity Frequency: Other Physical Activity Frequency Comment: disabled Seatbelt Use: always Sunscreen Use: No Assistive Devices: Glasses, Hospital Bed, Mechanical Lift and Wheelchair Allergies Allergies Allergy/AdvReac Type Severity Reaction Status Date / Time ciprofloxacin [From Cipro] Allergy Mild "Kidney Verified 07/26/23 17:46 issues" amoxicillin [From Augmentin] Allergy Unknown Verified 07/26/23 17:46 clavulanic acid Allergy Unknown Verified 07/26/23 17:46 [From Augmentin] levofloxacin [From Levaquin] Allergy Unknown Verified 07/26/23 17:46 nitrofurantoin Allergy Unknown Verified 07/26/23 17:46 [From Macrobid] adhesive AdvReac Mild LOCAL RASH Verified 07/26/23 17:46 trimethoprim [From Bactrim] AdvReac Mild Nausea Verified 07/26/23 17:46 sulfamethoxazole AdvReac Nausea Verified 07/26/23 17:46 [From Bactrim] Home Meds Home Medications Medication Instructions Recorded Confirmed multivitamin 1 tab PO QAM 06/13/19 07/26/23 bisacodyl 10 mg rectal suppository 10 mg NE [id number] 07/03/19 07/26/23 calcium carbonate 500 mg-vitamin 1 tab PO QAM 07/03/19 07/26/23 D3 5 mcg (200 unit) tablet thiamine HCl (vitamin B1) 100 mg 100 mg PO QAM 07/03/19 07/26/23 tablet polyethylene glycol 3350 17 17 g PO DAILY PRN Constipation 03/06/21 07/26/23 gram/dose oral powder Previous Rx's Medication Instructions Recorded lubricants topical gel (Personal 1 ea topical BID PRN use 3x a day 03/26/21 Lubricating Jelly topical) PRN for self cath #113 grams miscellaneous medical supply 1 ea miscellaneous DAILY #1 ea 04/02/21 miscellaneous medical supply 1 ea miscellaneous DAILY N31.9 #1 04/02/21 ea docusate sodium 100 mg capsule 100 mg PO BID #180 caps 12/16/22 (Colace) hydrocortisone 2.5 % topical cream 1 applic NE BID hemorrhoids #30 03/16/23 with perineal applicator grams (Anusol-HC) ondansetron HCl 4 mg tablet 4 mg PO Q8H PRN nausea and 03/25/23 vomiting #14 tabs baclofen 10 mg tablet 15 mg PO TID muscle spasms 30 days 06/29/23 #135 tabs fluoxetine 20 mg capsule See Rx Instructions .Route 06/29/23 .COMPLEX #30 caps testosterone 2 pump topical DAILY #75 grams 06/30/23 Results & Data (ED) Vital Signs Vital Signs - 24 hr 07/26/23 16:09 07/26/23 16:21 07/26/23 16:54 Temperature 37.6 C H Temperature Source Temporal Artery Scan Pulse Rate 94 H 80 Pulse Rate [Right Finger] Pulse Rate from SpO2 Sensor Pulse Rhythm Pulse Rhythm [Right Finger] Pulse Strength Pulse Strength [Right Finger] Respiratory Rate 16 Respiratory Effort / Characteristics Non-Labored Spontaneous Respiratory Depth Normal Respiratory Pattern Regular Blood Pressure 88/52 L Blood Pressure [Left Arm] Blood Pressure Mean 64 Blood Pressure Mean [Left Arm] Blood Pressure Position Sitting Blood Pressure Position [Left Arm] Pulse Oximetry 93 Oxygen Delivery Method Room Air Room Air Sepsis Recent Fever Within 48 Hours No Sepsis New/Unexplained Change in Mental Status No Sepsis Action Taken by Nursing No Action Required 07/26/23 18:16 07/26/23 19:00 07/26/23 18:45 Temperature 36.9 C Temperature Source Oral Pulse Rate 69 Pulse Rate [Right Finger] 71 79 Pulse Rate from SpO2 Sensor Pulse Rhythm Pulse Rhythm [Right Finger] Regular Regular Pulse Strength Pulse Strength [Right Finger] Normal Normal Respiratory Rate 17 18 16 Respiratory Effort / Characteristics Non-Labored Non-Labored Respiratory Depth Normal Normal Respiratory Pattern Regular Regular Blood Pressure 95/78 L Blood Pressure [Left Arm] 116/72 113/77 Blood Pressure Mean 83 Blood Pressure Mean [Left Arm] 86 89 Blood Pressure Position Blood Pressure Position [Left Arm] Lying Lying Pulse Oximetry 95 96 97 Oxygen Delivery Method Room Air Room Air Sepsis Recent Fever Within 48 Hours Sepsis New/Unexplained Change in Mental Status Sepsis Action Taken by Nursing 07/26/23 19:09 07/26/23 19:30 07/26/23 20:00 Temperature 36.9 C 36.8 C Temperature Source Axillary Oral Pulse Rate 74 74 Pulse Rate [Right Finger] 72 Pulse Rate from SpO2 Sensor Pulse Rhythm Regular Regular Pulse Rhythm [Right Finger] Regular Pulse Strength Normal Normal Pulse Strength [Right Finger] Normal Respiratory Rate 16 24 23 Respiratory Effort / Characteristics Non-Labored Respiratory Depth Normal Respiratory Pattern Regular Blood Pressure 104/68 119/74 Blood Pressure [Left Arm] 120/75 Blood Pressure Mean 80 89 Blood Pressure Mean [Left Arm] 90 Blood Pressure Position Sitting Blood Pressure Position [Left Arm] Lying Pulse Oximetry 97 97 97 Oxygen Delivery Method Room Air Sepsis Recent Fever Within 48 Hours Sepsis New/Unexplained Change in Mental Status Sepsis Action Taken by Nursing 07/26/23 19:18 07/26/23 20:18 07/26/23 21:18 Temperature 36.8 C 36.6 C 36.1 C L Temperature Source Oral Oral Oral Pulse Rate 76 74 72 Pulse Rate [Right Finger] Pulse Rate from SpO2 Sensor Pulse Rhythm Pulse Rhythm [Right Finger] Pulse Strength Pulse Strength [Right Finger] Respiratory Rate 22 19 23 Respiratory Effort / Characteristics Respiratory Depth Respiratory Pattern Blood Pressure 121/74 107/69 107/68 Blood Pressure [Left Arm] Blood Pressure Mean 89 81 81 Blood Pressure Mean [Left Arm] Blood Pressure Position Blood Pressure Position [Left Arm] Pulse Oximetry 98 97 96 Oxygen Delivery Method Sepsis Recent Fever Within 48 Hours Sepsis New/Unexplained Change in Mental Status Sepsis Action Taken by Nursing 07/26/23 21:50 07/26/23 20:52 07/26/23 16:54 Temperature 36.1 C L Temperature Source Oral Pulse Rate 77 74 83 Pulse Rate [Right Finger] Pulse Rate from SpO2 Sensor 83 Pulse Rhythm Regular Pulse Rhythm [Right Finger] Pulse Strength Normal Pulse Strength [Right Finger] Respiratory Rate 16 21 Respiratory Effort / Characteristics Respiratory Depth Respiratory Pattern Blood Pressure 126/71 Blood Pressure [Left Arm] Blood Pressure Mean 89 Blood Pressure Mean [Left Arm] Blood Pressure Position Sitting Blood Pressure Position [Left Arm] Pulse Oximetry 97 98 Oxygen Delivery Method Sepsis Recent Fever Within 48 Hours Sepsis New/Unexplained Change in Mental Status Sepsis Action Taken by Nursing 07/26/23 17:00 07/26/23 17:00 07/26/23 17:15 Temperature Temperature Source Pulse Rate 75 78 Pulse Rate [Right Finger] Pulse Rate from SpO2 Sensor 76 77 Pulse Rhythm Pulse Rhythm [Right Finger] Pulse Strength Pulse Strength [Right Finger] Respiratory Rate 23 16 Respiratory Effort / Characteristics Respiratory Depth Respiratory Pattern Blood Pressure 95/62 L Blood Pressure [Left Arm] Blood Pressure Mean 67 Blood Pressure Mean [Left Arm] Blood Pressure Position Blood Pressure Position [Left Arm] Pulse Oximetry 99 98 Oxygen Delivery Method Sepsis Recent Fever Within 48 Hours Sepsis New/Unexplained Change in Mental Status Sepsis Action Taken by Nursing 07/26/23 17:30 07/26/23 17:30 07/26/23 17:45 Temperature Temperature Source Pulse Rate 80 84 Pulse Rate [Right Finger] Pulse Rate from SpO2 Sensor 82 85 Pulse Rhythm Pulse Rhythm [Right Finger] Pulse Strength Pulse Strength [Right Finger] Respiratory Rate 16 15 Respiratory Effort / Characteristics Respiratory Depth Respiratory Pattern Blood Pressure 124/90 Blood Pressure [Left Arm] Blood Pressure Mean 104 Blood Pressure Mean [Left Arm] Blood Pressure Position Blood Pressure Position [Left Arm] Pulse Oximetry 98 97 Oxygen Delivery Method Sepsis Recent Fever Within 48 Hours Sepsis New/Unexplained Change in Mental Status Sepsis Action Taken by Nursing 07/26/23 18:00 07/26/23 18:00 07/26/23 18:12 Temperature Temperature Source Pulse Rate 74 68 Pulse Rate [Right Finger] Pulse Rate from SpO2 Sensor 75 70 Pulse Rhythm Pulse Rhythm [Right Finger] Pulse Strength Pulse Strength [Right Finger] Respiratory Rate 16 17 Respiratory Effort / Characteristics Respiratory Depth Respiratory Pattern Blood Pressure 108/64 Blood Pressure [Left Arm] Blood Pressure Mean 78 Blood Pressure Mean [Left Arm] Blood Pressure Position Blood Pressure Position [Left Arm] Pulse Oximetry 97 96 Oxygen Delivery Method Sepsis Recent Fever Within 48 Hours Sepsis New/Unexplained Change in Mental Status Sepsis Action Taken by Nursing 07/26/23 18:12 07/26/23 18:15 07/26/23 18:30 Temperature Temperature Source Pulse Rate 73 Pulse Rate [Right Finger] Pulse Rate from SpO2 Sensor 72 Pulse Rhythm Pulse Rhythm [Right Finger] Pulse Strength Pulse Strength [Right Finger] Respiratory Rate 20 Respiratory Effort / Characteristics Respiratory Depth Respiratory Pattern Blood Pressure 95/78 L 120/75 Blood Pressure [Left Arm] Blood Pressure Mean 80 88 Blood Pressure Mean [Left Arm] Blood Pressure Position Blood Pressure Position [Left Arm] Pulse Oximetry 96 Oxygen Delivery Method Sepsis Recent Fever Within 48 Hours Sepsis New/Unexplained Change in Mental Status Sepsis Action Taken by Nursing 07/26/23 18:30 07/26/23 18:45 07/26/23 18:45 Temperature Temperature Source Pulse Rate 73 78 Pulse Rate [Right Finger] Pulse Rate from SpO2 Sensor 72 74 Pulse Rhythm Pulse Rhythm [Right Finger] Pulse Strength Pulse Strength [Right Finger] Respiratory Rate 19 18 Respiratory Effort / Characteristics Respiratory Depth Respiratory Pattern Blood Pressure 113/77 Blood Pressure [Left Arm] Blood Pressure Mean 90 Blood Pressure Mean [Left Arm] Blood Pressure Position Blood Pressure Position [Left Arm] Pulse Oximetry 97 98 Oxygen Delivery Method Sepsis Recent Fever Within 48 Hours Sepsis New/Unexplained Change in Mental Status Sepsis Action Taken by Nursing 07/26/23 19:00 07/26/23 19:15 07/26/23 19:30 Temperature Temperature Source Pulse Rate 68 78 73 Pulse Rate [Right Finger] Pulse Rate from SpO2 Sensor 68 77 74 Pulse Rhythm Pulse Rhythm [Right Finger] Pulse Strength Pulse Strength [Right Finger] Respiratory Rate 17 15 23 Respiratory Effort / Characteristics Respiratory Depth Respiratory Pattern Blood Pressure 116/72 104/68 Blood Pressure [Left Arm] Blood Pressure Mean 86 80 Blood Pressure Mean [Left Arm] Blood Pressure Position Blood Pressure Position [Left Arm] Pulse Oximetry 96 96 97 Oxygen Delivery Method Sepsis Recent Fever Within 48 Hours Sepsis New/Unexplained Change in Mental Status Sepsis Action Taken by Nursing 07/26/23 19:45 07/26/23 20:00 07/26/23 20:15 Temperature Temperature Source Pulse Rate 70 74 73 Pulse Rate [Right Finger] Pulse Rate from SpO2 Sensor 70 73 73 Pulse Rhythm Pulse Rhythm [Right Finger] Pulse Strength Pulse Strength [Right Finger] Respiratory Rate 19 18 18 Respiratory Effort / Characteristics Respiratory Depth Respiratory Pattern Blood Pressure 104/59 L 107/69 116/74 Blood Pressure [Left Arm] Blood Pressure Mean 74 81 88 Blood Pressure Mean [Left Arm] Blood Pressure Position Blood Pressure Position [Left Arm] Pulse Oximetry 97 97 97 Oxygen Delivery Method Sepsis Recent Fever Within 48 Hours Sepsis New/Unexplained Change in Mental Status Sepsis Action Taken by Nursing 07/26/23 20:30 07/26/23 20:45 07/26/23 21:00 Temperature Temperature Source Pulse Rate 71 67 71 Pulse Rate [Right Finger] Pulse Rate from SpO2 Sensor 71 68 71 Pulse Rhythm Pulse Rhythm [Right Finger] Pulse Strength Pulse Strength [Right Finger] Respiratory Rate 22 19 17 Respiratory Effort / Characteristics Respiratory Depth Respiratory Pattern Blood Pressure 119/74 118/76 107/68 Blood Pressure [Left Arm] Blood Pressure Mean 89 90 81 Blood Pressure Mean [Left Arm] Blood Pressure Position Blood Pressure Position [Left Arm] Pulse Oximetry 97 97 97 Oxygen Delivery Method Sepsis Recent Fever Within 48 Hours Sepsis New/Unexplained Change in Mental Status Sepsis Action Taken by Nursing 07/26/23 21:15 07/26/23 21:30 07/26/23 21:45 Temperature Temperature Source Pulse Rate 74 72 82 Pulse Rate [Right Finger] Pulse Rate from SpO2 Sensor 75 70 84 Pulse Rhythm Pulse Rhythm [Right Finger] Pulse Strength Pulse Strength [Right Finger] Respiratory Rate 21 16 21 Respiratory Effort / Characteristics Respiratory Depth Respiratory Pattern Blood Pressure 104/72 107/69 126/71 Blood Pressure [Left Arm] Blood Pressure Mean 82 81 89 Blood Pressure Mean [Left Arm] Blood Pressure Position Blood Pressure Position [Left Arm] Pulse Oximetry 97 97 98 Oxygen Delivery Method Sepsis Recent Fever Within 48 Hours Sepsis New/Unexplained Change in Mental Status Sepsis Action Taken by Nursing 07/26/23 22:00 07/26/23 22:15 07/26/23 23:00 Temperature Temperature Source Pulse Rate 74 72 Pulse Rate [Right Finger] Pulse Rate from SpO2 Sensor 74 74 Pulse Rhythm Pulse Rhythm [Right Finger] Regular Pulse Strength Pulse Strength [Right Finger] Respiratory Rate 20 21 Respiratory Effort / Characteristics Non-Labored Respiratory Depth Normal Respiratory Pattern Regular Blood Pressure 129/80 118/72 Blood Pressure [Left Arm] Blood Pressure Mean 96 87 Blood Pressure Mean [Left Arm] Blood Pressure Position Blood Pressure Position [Left Arm] Pulse Oximetry 97 96 Oxygen Delivery Method Room Air Sepsis Recent Fever Within 48 Hours Sepsis New/Unexplained Change in Mental Status Sepsis Action Taken by Nursing 07/27/23 00:43 07/26/23 22:30 07/26/23 22:45 Temperature 36.8 C Temperature Source Oral Pulse Rate 73 75 82 Pulse Rate [Right Finger] Pulse Rate from SpO2 Sensor 77 81 Pulse Rhythm Pulse Rhythm [Right Finger] Pulse Strength Pulse Strength [Right Finger] Respiratory Rate 18 19 15 Respiratory Effort / Characteristics Respiratory Depth Respiratory Pattern Blood Pressure 123/92 129/81 Blood Pressure [Left Arm] Blood Pressure Mean 102 97 Blood Pressure Mean [Left Arm] Blood Pressure Position Sitting Blood Pressure Position [Left Arm] Pulse Oximetry 95 99 98 Oxygen Delivery Method Sepsis Recent Fever Within 48 Hours Sepsis New/Unexplained Change in Mental Status Sepsis Action Taken by Nursing 07/26/23 23:00 07/26/23 23:15 07/27/23 00:12 Temperature Temperature Source Pulse Rate 82 74 73 Pulse Rate [Right Finger] Pulse Rate from SpO2 Sensor 81 74 Pulse Rhythm Pulse Rhythm [Right Finger] Pulse Strength Pulse Strength [Right Finger] Respiratory Rate 21 21 13 Respiratory Effort / Characteristics Respiratory Depth Respiratory Pattern Blood Pressure 103/66 Blood Pressure [Left Arm] Blood Pressure Mean 78 Blood Pressure Mean [Left Arm] Blood Pressure Position Blood Pressure Position [Left Arm] Pulse Oximetry 97 98 Oxygen Delivery Method Sepsis Recent Fever Within 48 Hours Sepsis New/Unexplained Change in Mental Status Sepsis Action Taken by Nursing 07/27/23 00:14 07/27/23 00:15 07/27/23 00:30 Temperature Temperature Source Pulse Rate 78 83 101 H Pulse Rate [Right Finger] Pulse Rate from SpO2 Sensor 79 86 100 H Pulse Rhythm Pulse Rhythm [Right Finger] Pulse Strength Pulse Strength [Right Finger] Respiratory Rate 19 18 20 Respiratory Effort / Characteristics Respiratory Depth Respiratory Pattern Blood Pressure 145/93 H Blood Pressure [Left Arm] Blood Pressure Mean 110 Blood Pressure Mean [Left Arm] Blood Pressure Position Blood Pressure Position [Left Arm] Pulse Oximetry 97 96 99 Oxygen Delivery Method Room Air Sepsis Recent Fever Within 48 Hours Sepsis New/Unexplained Change in Mental Status Sepsis Action Taken by Nursing 07/27/23 00:31 07/27/23 00:45 07/27/23 01:03 Temperature 37.4 C Temperature Source Oral Pulse Rate 92 H 80 88 Pulse Rate [Right Finger] Pulse Rate from SpO2 Sensor 92 H 79 Pulse Rhythm Pulse Rhythm [Right Finger] Pulse Strength Pulse Strength [Right Finger] Respiratory Rate 20 19 21 Respiratory Effort / Characteristics Respiratory Depth Respiratory Pattern Blood Pressure 123/92 119/69 Blood Pressure [Left Arm] Blood Pressure Mean 102 85 Blood Pressure Mean [Left Arm] Blood Pressure Position Blood Pressure Position [Left Arm] Pulse Oximetry 98 95 99 Oxygen Delivery Method Room Air Sepsis Recent Fever Within 48 Hours Sepsis New/Unexplained Change in Mental Status Sepsis Action Taken by Nursing 07/27/23 01:18 07/27/23 01:48 07/27/23 00:50 Temperature 37.0 C 36.6 C Temperature Source Oral Oral Pulse Rate 71 69 68 Pulse Rate [Right Finger] Pulse Rate from SpO2 Sensor Pulse Rhythm Regular Regular Pulse Rhythm [Right Finger] Pulse Strength Normal Normal Pulse Strength [Right Finger] Respiratory Rate 20 20 Respiratory Effort / Characteristics Respiratory Depth Respiratory Pattern Blood Pressure 108/73 111/70 Blood Pressure [Left Arm] Blood Pressure Mean 84 83 Blood Pressure Mean [Left Arm] Blood Pressure Position Sitting Blood Pressure Position [Left Arm] Pulse Oximetry 96 97 Oxygen Delivery Method Sepsis Recent Fever Within 48 Hours Sepsis New/Unexplained Change in Mental Status Sepsis Action Taken by Nursing 07/27/23 02:48 07/27/23 03:00 07/27/23 01:00 Temperature 36.7 C Temperature Source Oral Pulse Rate 68 72 Pulse Rate [Right Finger] Pulse Rate from SpO2 Sensor 73 Pulse Rhythm Regular Pulse Rhythm [Right Finger] Pulse Strength Normal Pulse Strength [Right Finger] Respiratory Rate 16 15 Respiratory Effort / Characteristics Non-Labored Respiratory Depth Normal Respiratory Pattern Regular Blood Pressure 109/72 119/69 Blood Pressure [Left Arm] Blood Pressure Mean 84 85 Blood Pressure Mean [Left Arm] Blood Pressure Position Blood Pressure Position [Left Arm] Pulse Oximetry 96 97 Oxygen Delivery Method Room Air Sepsis Recent Fever Within 48 Hours Sepsis New/Unexplained Change in Mental Status Sepsis Action Taken by Nursing 07/27/23 01:15 07/27/23 01:17 07/27/23 01:30 Temperature Temperature Source Pulse Rate 75 80 Pulse Rate [Right Finger] Pulse Rate from SpO2 Sensor 73 79 Pulse Rhythm Pulse Rhythm [Right Finger] Pulse Strength Pulse Strength [Right Finger] Respiratory Rate 17 14 Respiratory Effort / Characteristics Respiratory Depth Respiratory Pattern Blood Pressure 108/73 112/72 Blood Pressure [Left Arm] Blood Pressure Mean 84 81 Blood Pressure Mean [Left Arm] Blood Pressure Position Blood Pressure Position [Left Arm] Pulse Oximetry 97 95 Oxygen Delivery Method Sepsis Recent Fever Within 48 Hours Sepsis New/Unexplained Change in Mental Status Sepsis Action Taken by Nursing 07/27/23 01:30 07/27/23 01:45 07/27/23 01:48 Temperature Temperature Source Pulse Rate 64 69 73 Pulse Rate [Right Finger] Pulse Rate from SpO2 Sensor 64 70 72 Pulse Rhythm Pulse Rhythm [Right Finger] Pulse Strength Pulse Strength [Right Finger] Respiratory Rate 18 24 18 Respiratory Effort / Characteristics Respiratory Depth Respiratory Pattern Blood Pressure 111/70 Blood Pressure [Left Arm] Blood Pressure Mean 83 Blood Pressure Mean [Left Arm] Blood Pressure Position Blood Pressure Position [Left Arm] Pulse Oximetry 97 97 98 Oxygen Delivery Method Sepsis Recent Fever Within 48 Hours Sepsis New/Unexplained Change in Mental Status Sepsis Action Taken by Nursing 07/27/23 02:00 07/27/23 02:15 07/27/23 02:30 Temperature Temperature Source Pulse Rate 68 71 71 Pulse Rate [Right Finger] Pulse Rate from SpO2 Sensor 70 70 71 Pulse Rhythm Pulse Rhythm [Right Finger] Pulse Strength Pulse Strength [Right Finger] Respiratory Rate 17 18 25 H Respiratory Effort / Characteristics Respiratory Depth Respiratory Pattern Blood Pressure 116/76 109/72 Blood Pressure [Left Arm] Blood Pressure Mean 89 84 Blood Pressure Mean [Left Arm] Blood Pressure Position Blood Pressure Position [Left Arm] Pulse Oximetry 97 97 97 Oxygen Delivery Method Sepsis Recent Fever Within 48 Hours Sepsis New/Unexplained Change in Mental Status Sepsis Action Taken by Nursing 07/27/23 02:45 07/27/23 03:00 Temperature Temperature Source Pulse Rate 74 69 Pulse Rate [Right Finger] Pulse Rate from SpO2 Sensor 67 69 Pulse Rhythm Pulse Rhythm [Right Finger] Pulse Strength Pulse Strength [Right Finger] Respiratory Rate 16 23 Respiratory Effort / Characteristics Respiratory Depth Respiratory Pattern Blood Pressure 121/84 Blood Pressure [Left Arm] Blood Pressure Mean 96 Blood Pressure Mean [Left Arm] Blood Pressure Position Blood Pressure Position [Left Arm] Pulse Oximetry 97 98 Oxygen Delivery Method Room Air Sepsis Recent Fever Within 48 Hours Sepsis New/Unexplained Change in Mental Status Sepsis Action Taken by [facility] Medications Current Medication List: was personally reviewed by tx Laboratory Data Attestation: I reviewed the patient's lab results. 07/26/23 16:32 07/26/23 16:32 Lab Results 07/26/23 07/26/23 07/26/23 Range/Units 16:32 16:32 16:32 WBC 18.91 H (4.8-10.8) K/ul RBC 3.05 L (4.70-6.10) M/uL Hgb 4.9 L* (14.0-18.0) g/dl Hct 18.7 L* (42.0-52.0) % MCV 61.3 L (80.0-100.0) fL MCH 16.1 L (25.0-34.0) pg MCHC 26.2 L (32.0-36.0) g/dL RDW Std Deviation 46.2 (36.4-46.3) fL RDW Coeff of Lashawn 21.8 H (11.5-14.5) % Plt Count 302 (130-400) K/uL Reticulocyte % (Auto) 2.0 (0.5-2.0) % Reticulocyte # 0.06 (0.02-0.10) 10^6/uL Neutrophils % (Manual) 94 % Lymphocytes % (Manual) 3 % Monocytes % (Manual) 2 % Eosinophils % (Manual) 1 % Neutrophils # (Manual) 17.78 H (1.40-6.50) K/uL Total Absolute Neuts 17.78 H (1.4-6.5) K/uL Lymphocytes # (Manual) 0.57 L (1.2-3.4) K/uL Total Abs Lymphocytes 0.57 L (1.2-3.4) K/uL Monocytes # (Manual) 0.38 (0.11-0.59) K/uL Eosinophils # (Manual) 0.19 (0-0.50) K/uL Platelet Estimate Normal (Normal) Polychromasia 1+ Hypochromasia Present Poikilocytosis Present Anisocytosis Present Microcytosis Present PT (9.0-12.0) Seconds INR (0.9-1.1) APTT (21.0-31.0) Seconds PTT Ratio Sodium 136 (136-145) mmol/L Potassium 4.0 (3.5-5.1) mmol/L Chloride 105 (98-107) mmol/L Carbon Dioxide 24 (21-32) mmol/L Anion Gap 7 (3-11) BUN 8 (6-23) mg/dl Creatinine 0.55 L (0.6-1.4) mg/dl Est Cr Clr Drug Dosing 141.9 ml/min Est GFR ( Amer) 136.0 ml/min Est GFR (Non-Af Amer) 117.3 ml/min BUN/Creatinine Ratio 14.5 (10-20) Glucose 102 H (70-99(Fasting)) mg/dl Calcium 8.8 (8.6-10.3) mg/dl Iron < 10 L (35-175) mcg/dl TIBC TNP Unsaturated IBC 519 H (155-355) mcg/dl Transferrin % Sat TNP Total Bilirubin 0.3 (0.2-1.0) mg/dl AST 13 (13-39) U/L ALT 12 (7-52) U/L Alkaline Phosphatase 70 (34-104) U/L Troponin I High Sens 2.8 (0-20) pg/ml C-Reactive Protein 2.60 H (0-0.5) mg/dl Total Protein 6.7 (6.0-8.3) gm/dl Albumin 4.0 (3.4-5.0) gm/dl Globulin 2.7 (2.5-4.0) gm/dl Albumin/Globulin Ratio 1.5 (0.9-2) Lipase 24 (11-82) U/L Vitamin B12 (180-914) pg/ml Folate (>5.38) ng/ml Procalcitonin (0-0.5) ng/ml Urine Color Urine Appearance (Clear) Urine pH (4.5-7.5) Ur Specific [place] (1.000-1.030) Urine Protein (Negative) Urine Glucose (UA) (Negative) Urine Ketones (Negative) Urine Blood (Negative) Urine Nitrite (Negative) Urine Bilirubin (Negative) Urine Urobilinogen (Negative) Ur Leukocyte Esterase (Negative) Urine WBC (Auto) (0-5) /hpf Urine RBC (Auto) (0-4) /hpf U Hyaline Cast (Auto) (0-5) /lpf U Epithel Cells (Auto) (0-5) /lpf Urine Bacteria (Auto) (Negative) Blood Type B Positive Blood Type Recheck Antibody Screen NEGATIVE Crossmatch See Detail 07/26/23 07/26/23 07/26/23 Range/Units 16:32 16:32 16:37 WBC (4.8-10.8) K/ul RBC (4.70-6.10) M/uL Hgb (14.0-18.0) g/dl Hct (42.0-52.0) % MCV (80.0-100.0) fL MCH (25.0-34.0) pg MCHC (32.0-36.0) g/dL RDW Std Deviation (36.4-46.3) fL RDW Coeff of Lashawn (11.5-14.5) % Plt Count (130-400) K/uL Reticulocyte % (Auto) (0.5-2.0) % Reticulocyte # (0.02-0.10) 10^6/uL Neutrophils % (Manual) % Lymphocytes % (Manual) % Monocytes % (Manual) % Eosinophils % (Manual) % Neutrophils # (Manual) (1.40-6.50) K/uL Total Absolute Neuts (1.4-6.5) K/uL Lymphocytes # (Manual) (1.2-3.4) K/uL Total Abs Lymphocytes (1.2-3.4) K/uL Monocytes # (Manual) (0.11-0.59) K/uL Eosinophils # (Manual) (0-0.50) K/uL Platelet Estimate (Normal) Polychromasia Hypochromasia Poikilocytosis Anisocytosis Microcytosis PT 11.7 (9.0-12.0) Seconds INR 1.1 (0.9-1.1) APTT 24.7 (21.0-31.0) Seconds PTT Ratio 0.9 Sodium (136-145) mmol/L Potassium (3.5-5.1) mmol/L Chloride (98-107) mmol/L Carbon Dioxide (21-32) mmol/L Anion Gap (3-11) BUN (6-23) mg/dl Creatinine (0.6-1.4) mg/dl Est Cr Clr Drug Dosing ml/min Est GFR ( Amer) ml/min Est GFR (Non-Af Amer) ml/min BUN/Creatinine Ratio (10-20) Glucose (70-99(Fasting)) mg/dl Calcium (8.6-10.3) mg/dl Iron (35-175) mcg/dl TIBC Unsaturated IBC (155-355) mcg/dl Transferrin % Sat Total Bilirubin (0.2-1.0) mg/dl AST (13-39) U/L ALT (7-52) U/L Alkaline Phosphatase (34-104) U/L Troponin I High Sens (0-20) pg/ml C-Reactive Protein (0-0.5) mg/dl Total Protein (6.0-8.3) gm/dl Albumin (3.4-5.0) gm/dl Globulin (2.5-4.0) gm/dl Albumin/Globulin Ratio (0.9-2) Lipase (11-82) U/L Vitamin B12 (180-914) pg/ml Folate (>5.38) ng/ml Procalcitonin < 0.05 (0-0.5) ng/ml Urine Color Urine Appearance (Clear) Urine pH (4.5-7.5) Ur Specific [place] (1.000-1.030) Urine Protein (Negative) Urine Glucose (UA) (Negative) Urine Ketones (Negative) Urine Blood (Negative) Urine Nitrite (Negative) Urine Bilirubin (Negative) Urine Urobilinogen (Negative) Ur Leukocyte Esterase (Negative) Urine WBC (Auto) (0-5) /hpf Urine RBC (Auto) (0-4) /hpf U Hyaline Cast (Auto) (0-5) /lpf U Epithel Cells (Auto) (0-5) /lpf Urine Bacteria (Auto) (Negative) Blood Type Blood Type Recheck B Positive Antibody Screen Crossmatch 07/26/23 07/26/23 Range/Units 19:32 22:30 WBC (4.8-10.8) K/ul RBC (4.70-6.10) M/uL Hgb (14.0-18.0) g/dl Hct (42.0-52.0) % MCV (80.0-100.0) fL MCH (25.0-34.0) pg MCHC (32.0-36.0) g/dL RDW Std Deviation (36.4-46.3) fL RDW Coeff of Lashawn (11.5-14.5) % Plt Count (130-400) K/uL Reticulocyte % (Auto) (0.5-2.0) % Reticulocyte # (0.02-0.10) 10^6/uL Neutrophils % (Manual) % Lymphocytes % (Manual) % Monocytes % (Manual) % Eosinophils % (Manual) % Neutrophils # (Manual) (1.40-6.50) K/uL Total Absolute Neuts (1.4-6.5) K/uL Lymphocytes # (Manual) (1.2-3.4) K/uL Total Abs Lymphocytes (1.2-3.4) K/uL Monocytes # (Manual) (0.11-0.59) K/uL Eosinophils # (Manual) (0-0.50) K/uL Platelet Estimate (Normal) Polychromasia Hypochromasia Poikilocytosis Anisocytosis Microcytosis PT (9.0-12.0) Seconds INR (0.9-1.1) APTT (21.0-31.0) Seconds PTT Ratio Sodium (136-145) mmol/L Potassium (3.5-5.1) mmol/L Chloride (98-107) mmol/L Carbon Dioxide (21-32) mmol/L Anion Gap (3-11) BUN (6-23) mg/dl Creatinine (0.6-1.4) mg/dl Est Cr Clr Drug Dosing ml/min Est GFR ( Amer) ml/min Est GFR (Non-Af Amer) ml/min BUN/Creatinine Ratio (10-20) Glucose (70-99(Fasting)) mg/dl Calcium (8.6-10.3) mg/dl Iron (35-175) mcg/dl TIBC Unsaturated IBC (155-355) mcg/dl Transferrin % Sat Total Bilirubin (0.2-1.0) mg/dl AST (13-39) U/L ALT (7-52) U/L Alkaline Phosphatase (34-104) U/L Troponin I High Sens (0-20) pg/ml C-Reactive Protein (0-0.5) mg/dl Total Protein (6.0-8.3) gm/dl Albumin (3.4-5.0) gm/dl Globulin (2.5-4.0) gm/dl Albumin/Globulin Ratio (0.9-2) Lipase (11-82) U/L Vitamin B12 851 (180-914) pg/ml Folate > 22.30 (>5.38) ng/ml Procalcitonin (0-0.5) ng/ml Urine Color Yellow Urine Appearance Clear (Clear) Urine pH 8.5 H (4.5-7.5) Ur Specific [place] 1.009 (1.000-1.030) Urine Protein Negative (Negative) Urine Glucose (UA) Negative (Negative) Urine Ketones Negative (Negative) Urine Blood Negative (Negative) Urine Nitrite Positive A (Negative) Urine Bilirubin Negative (Negative) Urine Urobilinogen Negative (Negative) Ur Leukocyte Esterase 2+ H (Negative) Urine WBC (Auto) 10-30 H (0-5) /hpf Urine RBC (Auto) 0-4 (0-4) /hpf U Hyaline Cast (Auto) 1-5 (0-5) /lpf U Epithel Cells (Auto) 0-5 (0-5) /lpf Urine Bacteria (Auto) 1+ H (Negative) Blood Type Blood Type Recheck Antibody Screen Crossmatch Administered Medications Discontinued Medications Ceftriaxone Sodium (Ceftriaxone Sodium 2000mg/70ml D5w) Confirm Administered Dose 2,000 mg IV .STK-MED ONE Stop: 07/26/23 22:41 Last Admin: 07/26/23 22:48 Dose: Not Given Documented By: SERGIO Sodium Chloride (Nss 1000ml) 1,000 mls @ 999 mls/hr IV .Q1H1M STA Stop: 07/26/23 17:21 Last Infusion: 07/26/23 17:41 Dose: 0 mls/hr Documented By: Admin: 07/26/23 16:40 Dose: 999 mls/hr Documented By: PALMIRA Ceftriaxone Sodium (Rocephin) 2,000 mg in 70 mls @ 140 mls/hr IV NOW STA Stop: 07/26/23 19:18 Last Infusion: 07/26/23 23:30 Dose: 0 mls/hr Documented By: Admin: 07/26/23 22:47 Dose: 140 mls/hr Documented By: SERGIO Ioversol (Ioversol 350 Mg 125ml Prefilled Syringe) 118 ml IV ONCE ONE Stop: 07/27/23 00:06 Last Admin: 07/27/23 00:07 Dose: 118 ml Documented By: OTILIA Imaging Data Attestation: I personally reviewed and interpreted this imaging study as follows: My Impression: 1 view chest x-ray was obtained in the emergency department. My interpretation is no free air or definite infiltrate, final report below. Radiologist's Impression: Abdomen/Pelvis CTA 07/26/23 18:19 Exam(s): CTA ABDOMEN + PELVIS With Contrast IV Amt: 118 ml opti 350 EXAM: CT Angiography Abdomen and Pelvis With Intravenous Contrast CLINICAL HISTORY: Reason for exam: acute anemia, GIB eval. TECHNIQUE: Axial computed tomographic angiography images of the abdomen and pelvis with intravenous contrast. CTDI is 24.83 mGy and DLP is 1447.43 mGy-cm. Automated exposure control was utilized for the study. A dose lowering technique was utilized adhering to the principles of ALARA. MIP reconstructed images were created and reviewed. CONTRAST: Patient received 118 ml opti 350 of IV contrast COMPARISON: No relevant prior studies available. FINDINGS: VASCULATURE: Aorta: No acute findings. No abdominal aortic aneurysm. No dissection. Celiac trunk and mesenteric arteries: No acute findings. No occlusion or significant stenosis. Renal arteries: No acute findings. No occlusion or significant stenosis. Iliac arteries: Severe stenosis in the proximal right common iliac artery. Moderate stenosis within the left common iliac artery. The external iliac arteries are diminutive in caliber but patent.. Lung bases: Unremarkable. No mass. No consolidation. Pleural space: Trace pleural effusions and trace pericardial effusion. ABDOMEN: Liver: Unremarkable. No mass. Gallbladder and bile ducts: Unremarkable. No calcified stones. No ductal dilation. Pancreas: Unremarkable. No ductal dilation. No mass. Spleen: Unremarkable. No splenomegaly. Adrenals: Unremarkable. No mass. Kidneys and ureters: Unremarkable. No hydronephrosis. No solid mass. Stomach and bowel: No visualized active GI bleed. No bowel obstruction or inflammatory changes along the GI tract. Intact sutures within the rectum. No mucosal thickening. PELVIS: Appendix: No findings to suggest acute appendicitis. Bladder: Mucosal thickening in the bladder as can be seen in the setting of cystitis. Del[place] catheter within the bladder. Reproductive: Unremarkable as visualized. ABDOMEN and PELVIS: Intraperitoneal space: Unremarkable. No significant fluid collection. No free air. Bones/joints: Severe osteopenia. No acute fracture. No dislocation. Soft tissues: Unremarkable. Lymph nodes: Unremarkable. No enlarged lymph nodes. IMPRESSION: 1. No visualized active GI bleed. 2. Mucosal thickening in the bladder as can be seen in the setting of cystitis. 3. Trace pleural effusions and trace pericardial effusion. 4. Severe osteopenia. Out of proportion given the patient's age and sex. Consider DEXA. 5. 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 Electronically signed by: Vance Loera MD 07/27/23 02:22 AM Discharge Plan Visit Data Chief Complaint: Abnormal Labs/Diagnostic Testing Stated Complaint: ABN LABS, REF BY ED Provider: Nathan Kaba Discharge Problem: Symptomatic anemia, Low hematocrit, Acute UTI (urinary tract infection) Patient Disposition: Being Evaluated by Hospitalist Discharge Instructions Interventions: ED Discharge Assessment Last Done: 07/27/23 04:35
[2023-07-26 17:28] LABS: Alanine Aminotransferase 12 U/L (7-52); Albumin Globulin Ratio 1.5 (0.9-2); Alkaline Phosphatase 70 U/L (34-104); Anion Gap 7 (3-11); Aspartate Aminotransferase 13 U/L (13-39); BUN Creatinine Ratio 14.5 (10-20); Bilirubin,Total 0.3 mg/dl (0.2-1.0); Blood Urea Nitrogen 8 mg/dl (6-23); Calcium 8.8 mg/dl (8.6-10.3); Carbon Dioxide 24 mmol/L (21-32); Chloride 105 mmol/L (98-107); Creatinine Clr Calc Pharmacy 141.9 ml/min; Est GFR (Non-African American) 117.3 ml/min; Globulin 2.7 gm/dl (2.5-4.0); Glucose 102 mg/dl (70-99(Fasting)); Hematocrit (blood only) 18.7 % (42.0-52.0); Hemoglobin 4.9 g/dl (14.0-18.0); Lipase 24 U/L (11-82); Mean Corpuscular Hemoglobin 16.1 pg (25.0-34.0); Mean Corpuscular Hgb Conc 26.2 g/dL (32.0-36.0); Mean Corpuscular Volume 61.3 fL (80.0-100.0); Platelet Count 302 K/uL (130-400); RDW Coefficient of Variation 21.8 % (11.5-14.5); RDW Standard Deviation 46.2 fL (36.4-46.3); Red Blood Count 3.05 M/uL (4.70-6.10); Sodium 136 mmol/L (136-145); Total Protein 6.7 gm/dl (6.0-8.3); White Blood Count 18.91 K/ul (4.8-10.8)
[2023-07-26] MEDS ORDERED: SODIUM CHLORIDE 0.9% 250 ML IV PRN (17:31)
[2023-07-26 17:34] LABS: Troponin I High Sensitivity 2.8 pg/ml (0-20)
[2023-07-26 17:40] LABS: ALC (manual) 0.57 K/uL (1.2-3.4); ANC (manual) 17.78 K/uL (1.4-6.5); Anisocytosis Present; Eosinophils # (manual) 0.19 K/uL (0-0.50); Eosinophils % (manual) 1 %; Hypochromasia Present; Lymphocytes # (manual) 0.57 K/uL (1.2-3.4); Lymphocytes % (manual) 3 %; Microcytosis Present; Monocytes # (manual) 0.38 K/uL (0.11-0.59); Monocytes % (manual) 2 %; Neutrophils # (manual) 17.78 K/uL (1.40-6.50); Neutrophils % (manual) 94 %; Platelet Estimate Normal (Normal); Poikilocytosis Present; Polychromasia 1+; Reticulocytes # 0.06 10^6/uL (0.02-0.10)
[2023-07-26 17:43] LABS: INR 1.1 (0.9-1.1); Partial Thromboplastin Ratio 0.9; Partial Thromboplastin Time 24.7 Seconds (21.0-31.0); Prothrombin Time 11.7 Seconds (9.0-12.0)
--- NOTE | 2023-07-26 18:04 | XRay Report ---
SINGLE VIEW CHEST CLINICAL HISTORY: Atypical chest pain. FINDINGS: 2 AP, portable, upright chest radiographs are compared to study dated 06/21/2017 and correlat ed with chest CT dated 06/18/2017. Again seen is cardiomegaly, greatest involving the right cardiac ch ambers. The pulmonary vasculature is noncongested. Scarring/atelectasis is seen at the lung bases. Th e lungs and pleural spaces are otherwise clear. No pneumothorax is seen. The skeletal structures appe ar osteopenic. The bony thorax is grossly intact. Fusion hardware is noted in the lower cervical spin e. IMPRESSION: Cardiomegaly with no acute cardiopulmonary abnormality identified. ACT 112: Negative or not required by law. Electronically signed by: Keith Chery M.D. 07/26/2023 6:02 PM
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
[2023-07-26] MEDS ORDERED: cefTRIAXone SODIUM 2,000 MG/70 ML BAG IV STA (18:49)
[2023-07-26 18:55] LABS: Unsaturated Iron Binding Cap 519 mcg/dl (155-355)
[2023-07-26 19:11] LABS: Iron < 10 mcg/dl (35-175)
[2023-07-26 22:01] LABS: Folate (Folic Acid),Ser orPlas > 22.30 ng/ml (>5.38)
[2023-07-26 22:02] LABS: Vitamin B12 851 pg/ml (180-914)
[2023-07-26 22:40] LABS: Appearance Urine Clear (Clear); Bacteria Urine Automated 1+ (Negative); Bilirubin Urine Negative (Negative); Blood Urine Negative (Negative); Color Urine Yellow; Epithelial Cell Urine Auto 0-5 /lpf (0-5); Glucose Urine UA Negative (Negative); Ketones Urine Negative (Negative); Leukocyte Esterase Urine 2+ (Negative); Nitrite Urine Positive (Negative); Protein Urine Negative (Negative); RBC Urine Automated 0-4 /hpf (0-4); Specific Gravity Urine 1.009 (1.000-1.030); Urobilinogen Urine Negative (Negative); pH Urine 8.5 (4.5-7.5)
[2023-07-26] MEDS ORDERED: cefTRIAXone SODIUM 2000MG/70ML D5W IV ONE (22:40)
[2023-07-27] MEDS ORDERED: IOVERSOL 350 MG 125mL Prefilled Syringe IV ONE (00:05)
--- NOTE | 2023-07-27 02:23 | CT Scan Report ---
Exam(s): CTA ABDOMEN + PELVIS With Contrast IV Amt: 118 ml opti 350 EXAM: CT Angiography Abdomen and Pelvis With Intravenous Contrast CLINICAL HISTORY: Reason for exam: acute anemia, GIB eval. TECHNIQUE: Axial computed tomographic angiography images of the abdomen and pelvis with intravenous contrast. CTDI is 24.83 mGy and DLP is 1447.43 mGy-cm. Automated exposure control was utilized for the study. A dose lowering technique was utilized adhering to the principles of ALARA. MIP reconstructed images were created and reviewed. CONTRAST: Patient received 118 ml opti 350 of IV contrast COMPARISON: No relevant prior studies available. FINDINGS: VASCULATURE: Aorta: No acute findings. No abdominal aortic aneurysm. No dissection. Celiac trunk and mesenteric arteries: No acute findings. No occlusion or significant stenosis. Renal arteries: No acute findings. No occlusion or significant stenosis. Iliac arteries: Severe stenosis in the proximal right common iliac artery. Moderate stenosis within the left common iliac artery. The external iliac arteries are diminutive in caliber but patent.. Lung bases: Unremarkable. No mass. No consolidation. Pleural space: Trace pleural effusions and trace pericardial effusion. ABDOMEN: Liver: Unremarkable. No mass. Gallbladder and bile ducts: Unremarkable. No calcified stones. No ductal dilation. Pancreas: Unremarkable. No ductal dilation. No mass. Spleen: Unremarkable. No splenomegaly. Adrenals: Unremarkable. No mass. Kidneys and ureters: Unremarkable. No hydronephrosis. No solid mass. Stomach and bowel: No visualized active GI bleed. No bowel obstruction or inflammatory changes along the GI tract. Intact sutures within the rectum. No mucosal thickening. PELVIS: Appendix: No findings to suggest acute appendicitis. Bladder: Mucosal thickening in the bladder as can be seen in the setting of cystitis. Del[place] catheter within the bladder. Reproductive: Unremarkable as visualized. ABDOMEN and PELVIS: Intraperitoneal space: Unremarkable. No significant fluid collection. No free air. Bones/joints: Severe osteopenia. No acute fracture. No dislocation. Soft tissues: Unremarkable. Lymph nodes: Unremarkable. No enlarged lymph nodes. IMPRESSION: 1. No visualized active GI bleed. 2. Mucosal thickening in the bladder as can be seen in the setting of cystitis. 3. Trace pleural effusions and trace pericardial effusion. 4. Severe osteopenia. Out of proportion given the patient's age and sex. Consider DEXA. 5. 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 Electronically signed by: Vance Loera MD 07/27/23 02:22 AM
[2023-07-27 08:56] LABS: Hematocrit (blood only) 26.2 % (42.0-52.0); Hemoglobin 7.8 g/dl (14.0-18.0); Mean Corpuscular Hemoglobin 20.4 pg (25.0-34.0); Mean Corpuscular Hgb Conc 29.8 g/dL (32.0-36.0); Mean Corpuscular Volume 68.6 fL (80.0-100.0); Nucleated RBC # (auto) 0.02 K/uL (0.00-0.12); Nucleated RBC % (auto) 0.1 %; Platelet Count 294 K/uL (130-400); RDW Coefficient of Variation 25.5 % (11.5-14.5); RDW Standard Deviation 61.1 fL (36.4-46.3); Red Blood Count 3.82 M/uL (4.70-6.10); White Blood Count 14.04 K/ul (4.8-10.8)
[2023-07-27 09:04] LABS: Anisocytosis Present; Basophils # (auto) 0.02 K/uL (0.00-0.20); Basophils % (auto) 0.1 %; Eosinophils # (auto) 0.09 K/uL (0.00-0.50); Eosinophils % (auto) 0.6 %; Hypochromasia Present; Immature Granulocytes # (auto) 0.11 K/uL (0.01-0.20); Immature Granulocytes % (auto) 0.8 %; Lymphocytes # (auto) 0.98 K/uL (1.20-3.40); Microcytosis Present; Monocytes # (auto) 0.81 K/uL (0.11-0.59); Monocytes % (auto) 5.8 %; Neutrophils # (auto) 12.03 K/uL (1.40-6.50); Neutrophils % (auto) 85.7 %; Polychromasia 1+
--- NOTE | 2023-07-27 09:49 | Gastrointestinal Consultation ---
Date of Consultation July 27, 2023 Assessment & Plan (1) Symptomatic anemia: (2) Low hematocrit: Plan Patient is a 57 y.o. male with a history of quadriplegia with recent rectal bleeding (now resolved) admitted with profound symptomatic anemia. Diff dx: hemorrhoids vs diverticular bleed vs AVM vs PUD vs malignancy vs other. -Clear liquid diet today, NPO after midnight. -Start Pantoprazole 40 mg IV BID. -EGD tomorrow for further evaluation with Dr. Cagle. -Continue supportive care. Thank you for allowing us to participate in the care of this patient. If you have any questions or concerns, please do not hesitate to contact us. Supervising Physician Co-Signing Physician Notes I saw the patient and agree with the findings as documented by JASON Feliciano History of Present Illness Reason for Consultation: GIB, hemorrhoids Requesting Physician: Dr. Gil Attending Physician: Erich Rashid History of Present Illness Jason Valerio is a 57 y.o. male with a history of quadriplegia, prolapse, and hemorrhoids admitted with weakness and profound anemia. States he did have an episode of significant bright red rectal bleeding approximately 2 weeks ago. L abs on admission demonstrated a H&H of 5.0/20.2. Status post transfusion, H&H is now 7.8/26.2. The patient denies any abdominal pain, n/v, melena, hematochezia or hematemesis at present. Patient was referred to colorectal surgery for the prolapse and hemorrhoids after colonoscopy performed by Dr. Cagle in February of 2021. States he did not have the appointment, however, due to inability to coordinate transport. Last endoscopy was years ago. Denies any aspirin, NSAIDs or anticoagulation. Allergies Allergy/AdvReac Type Severity Reaction Status Date / Time ciprofloxacin [From Cipro] Allergy Mild "Kidney Verified 07/26/23 17:46 issues" amoxicillin [From Augmentin] Allergy Unknown Verified 07/26/23 17:46 clavulanic acid Allergy Unknown Verified 07/26/23 17:46 [From Augmentin] levofloxacin [From Levaquin] Allergy Unknown Verified 07/26/23 17:46 nitrofurantoin Allergy Unknown Verified 07/26/23 17:46 [From Macrobid] adhesive AdvReac Mild LOCAL RASH Verified 07/26/23 17:46 trimethoprim [From Bactrim] AdvReac Mild Nausea Verified 07/26/23 17:46 sulfamethoxazole AdvReac Nausea Verified 07/26/23 17:46 [From Bactrim] Home Medications Medication Instructions Recorded Confirmed Type multivitamin 1 tab PO QAM 06/13/19 07/26/23 History bisacodyl 10 mg rectal suppository 10 mg ME [id number] 07/03/19 07/26/23 History calcium carbonate 500 mg-vitamin 1 tab PO QAM 07/03/19 07/26/23 History D3 5 mcg (200 unit) tablet thiamine HCl (vitamin B1) 100 mg 100 mg PO QAM 07/03/19 07/26/23 History tablet polyethylene glycol 3350 17 17 g PO DAILY PRN Constipation 03/06/21 07/26/23 History gram/dose oral powder lubricants topical gel (Personal 1 ea topical BID PRN use 3x a day 03/26/21 07/26/23 Rx Lubricating Jelly topical) PRN for self cath #113 grams miscellaneous medical supply 1 ea miscellaneous DAILY #1 ea 04/02/21 07/26/23 Rx miscellaneous medical supply 1 ea miscellaneous DAILY N31.9 #1 04/02/21 07/26/23 Rx ea docusate sodium 100 mg capsule 100 mg PO BID #180 caps 12/16/22 07/26/23 Rx (Colace) hydrocortisone 2.5 % topical cream 1 applic ME BID hemorrhoids #30 03/16/23 07/26/23 Rx with perineal applicator grams (Anusol-HC) ondansetron HCl 4 mg tablet 4 mg PO Q8H PRN nausea and 03/25/23 07/26/23 Rx vomiting #14 tabs baclofen 10 mg tablet 15 mg PO TID muscle spasms 30 days 06/29/23 07/26/23 Rx #135 tabs fluoxetine 20 mg capsule See Rx Instructions .Route 06/29/23 07/26/23 Rx .COMPLEX #30 caps testosterone 2 pump topical DAILY #75 grams 06/30/23 07/26/23 Rx Patient History Medical History Cardiac arrest hx of--roughly 5yrs ago d/t drug overdose--no issues since, no vertical 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 Constipation History of cardiac arrest hx of--d/t drug overdose--no issues since, no vertical 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 History of cigarette smoking 1/2 ppd History of drug overdose Opiate History of testicular cancer Dx 2004, sx/radiation Hypogonadism in male Major depressive disorder with single episode Muscle spasticity Neurogenic bladder Quadriplegia, C1-C4, complete Recurrent urinary tract infection Testicular cancer (~2004) diagnosed 2004--sx/radiation Urinary tract infection per pt constant issue Uses [place] catheter Surgical History H/O neck surgery roughly 20yrs ago d/t accident--limited ROM of neck History of cancer surgery removal of right testicle d/t cancer History of colonoscopy History of esophagogastroduodenoscopy (EGD) History of hemorrhoidectomy History of wisdom tooth extraction Status post orchiopexy at 7 yrs old Family History Unknown Prostate cancer Cancer Hypertension Sister Breast cancer Family/Other Breast cancer Father Prostate cancer Melanoma Myocardial infarction Mother Hypertension Family history of reaction to anesthesia nausea/vomiting Sister Ovarian cancer Brain tumor meningioma Sister Schizophrenia Brain tumor meningioma Denies family history of Colon cancer Social History Smoking Status: Never smoker Age Quit Using Tobacco: 52; Second Hand Exposure: No; Do You Dip or Chew Tobacco: No; Tobacco Cessation Education Requested by Patient: No Hx Alcohol Use: No Hx Substance Use: No Preferred Language: Serbian Communication Ability: Effective Visual Impairment: No Limitations Hearing Ability: Normal Residential Substance Abuse Counselor Required: No Beliefs That Will Affect Care: None marital status: Single Current Living Situation: Family Current Living Situation Comment: next door to mother, has in home care givers during the day current occupational status: disabled Other Information That Helps Us Care for You: Yes (paralyzed, wheelchair bound) Feels Safe at Home: Yes Childhood Exposure to Second-Hand Smoke: No Diet: regular Diet Comment: regular caffeine: Yes during the past year weight has: remained stable Dental Care, Regularly: No Physical Activity Frequency: Other Physical Activity Frequency Comment: disabled Seatbelt Use: always Sunscreen Use: No Assistive Devices: Glasses, Hospital Bed, Mechanical Lift and Wheelchair Review of Systems Constitutional: as per Subjective / HPI Respiratory: no problem reported Cardiovascular: no problem reported Gastrointestinal: as per Subjective / HPI Physical Exam Constitutional: WD/WN, vitals as above Eyes: EOM intact bilaterally Respiratory: normal respiratory effort, lungs clear to auscultation Cardiovascular: Rate/Rhythm: regular rate and regular rhythm Gastrointestinal (Abdomen): Inspection/Auscultation: + hyperactive bowel sounds Percussion/Palpation: abdomen soft; abdomen nontender, no guarding and abdomen not rigid Rectal Exam: + hemorrhoids Rectal examination performed by Dr. Cagle with me present as a supervisor beater room. Results & Data Vital Signs (Past 12 Hours) Vital Signs Temp Pulse Resp BP Pulse Ox Pulse Ox O2 Del Method 07/27/23 07:23 76 07/27/23 05:37 Room Air 07/27/23 05:09 97 07/27/23 05:08 Room Air 07/27/23 05:08 Room Air 07/27/23 04:28 36.6 C 77 19 98/69 L 96 07/27/23 03:48 36.5 C 76 16 148/100 H 97 07/27/23 03:30 81 25 H 148/100 H 97 Room Air 07/27/23 03:00 69 23 121/84 98 Room Air 07/27/23 02:45 74 16 97 07/27/23 02:30 71 25 H 109/72 97 07/27/23 02:15 71 18 97 07/27/23 02:00 68 17 116/76 97 07/27/23 01:48 73 18 111/70 98 07/27/23 01:45 69 24 97 07/27/23 01:30 64 18 97 07/27/23 01:30 112/72 07/27/23 01:17 80 14 108/73 95 07/27/23 01:15 75 17 97 07/27/23 01:00 72 15 119/69 97 07/27/23 03:00 Room Air 07/27/23 02:48 36.7 C 68 16 109/72 96 07/27/23 00:50 68 07/27/23 01:48 36.6 C 69 20 111/70 97 07/27/23 01:18 37.0 C 71 20 108/73 96 07/27/23 01:03 37.4 C 88 21 119/69 99 09/06/23 00:45 80 19 95 07/27/23 00:31 92 H 20 123/92 98 Room Air 07/27/23 00:30 101 H 20 99 07/27/23 00:15 83 18 145/93 H 96 Room Air 07/27/23 00:14 78 19 97 07/27/23 00:12 73 13 07/26/23 23:15 74 21 98 07/26/23 23:00 82 21 103/66 97 07/26/23 22:45 82 15 98 07/26/23 22:30 75 19 129/81 99 07/27/23 00:43 36.8 C 73 18 123/92 95 07/26/23 23:00 Room Air 07/26/23 22:15 72 21 118/72 96 07/26/23 22:00 74 20 129/80 97 07/26/23 21:50 36.1 C L 77 16 126/71 97 O2 Del Method 07/27/23 07:23 07/27/23 05:37 07/27/23 05:09 Room Air 07/27/23 05:08 07/27/23 05:08 07/27/23 04:28 07/27/23 03:48 07/27/23 03:30 07/27/23 03:00 07/27/23 02:45 07/27/23 02:30 07/27/23 02:15 07/27/23 02:00 07/27/23 01:48 07/27/23 01:45 07/27/23 01:30 07/27/23 01:30 07/27/23 01:17 07/27/23 01:15 07/27/23 01:00 07/27/23 03:00 07/27/23 02:48 07/27/23 00:50 07/27/23 01:48 07/27/23 01:18 07/27/23 01:03 07/27/23 00:45 07/27/23 00:31 07/27/23 00:30 07/27/23 00:15 07/27/23 00:14 07/27/23 00:12 07/26/23 23:15 07/26/23 23:00 07/26/23 22:45 07/26/23 22:30 07/27/23 00:43 07/26/23 23:00 07/26/23 22:15 07/26/23 22:00 07/26/23 21:50 Diagnostic Findings Laboratory Results WBC 14.04 K/ul (4.8-10.8) H 07/27/23 08:14 RBC 3.82 M/uL (4.70-6.10) L 07/27/23 08:14 Hgb 7.8 g/dl (14.0-18.0) L D 07/27/23 08:14 Hct 26.2 % (42.0-52.0) L 07/27/23 08:14 MCV 68.6 fL (80.0-100.0) L D 07/27/23 08:14 MCH 20.4 pg (25.0-34.0) L 07/27/23 08:14 MCHC 29.8 g/dL (32.0-36.0) L D 07/27/23 08:14 RDW Std Deviation 61.1 fL (36.4-46.3) H 07/27/23 08:14 RDW Coeff of Lashawn 25.5 % (11.5-14.5) H 07/27/23 08:14 Plt Count 294 K/uL (130-400) 07/27/23 08:14 Immature Gran % (Auto) 0.8 % 07/27/23 08:14 Neut % (Auto) 85.7 % 07/27/23 08:14 Lymph % (Auto) 7.0 % 07/27/23 08:14 [place] % (Auto) 5.8 % 07/27/23 08:14 Eos % (Auto) 0.6 % 07/27/23 08:14 Baso % (Auto) 0.1 % 07/27/23 08:14 Reticulocyte % (Auto) 2.0 % (0.5-2.0) 07/26/23 16:32 Neut # (Auto) 12.03 K/uL (1.40-6.50) H 07/27/23 08:14 Lymph # (Auto) 0.98 K/uL (1.20-3.40) L 07/27/23 08:14 [place] # (Auto) 0.81 K/uL (0.11-0.59) H 07/27/23 08:14 Eos # (Auto) 0.09 K/uL (0.00-0.50) 07/27/23 08:14 Baso # (Auto) 0.02 K/uL (0.00-0.20) 07/27/23 08:14 Reticulocyte # 0.06 10^6/uL (0.02-0.10) 07/26/23 16:32 Immature Gran # (Auto) 0.11 K/uL (0.01-0.20) 07/27/23 08:14 Absolute Nucleated RBC 0.02 K/uL (0.00-0.12) 07/27/23 08:14 Nucleated RBC % (auto) 0.1 % 07/27/23 08:14 Neutrophils % (Manual) 94 % 07/26/23 16:32 Lymphocytes % (Manual) 3 % 07/26/23 16:32 Monocytes % (Manual) 2 % 07/26/23 16:32 Eosinophils % (Manual) 1 % 07/26/23 16:32 Neutrophils # (Manual) 17.78 K/uL (1.40-6.50) H 07/26/23 16:32 Total Absolute Neuts 17.78 K/uL (1.4-6.5) H 07/26/23 16:32 Lymphocytes # (Manual) 0.57 K/uL (1.2-3.4) L 07/26/23 16:32 Total Abs Lymphocytes 0.57 K/uL (1.2-3.4) L 07/26/23 16:32 Monocytes # (Manual) 0.38 K/uL (0.11-0.59) 07/26/23 16:32 Eosinophils # (Manual) 0.19 K/uL (0-0.50) 07/26/23 16:32 Platelet Estimate Normal (Normal) 07/26/23 16:32 Polychromasia 1+ 07/27/23 08:14 Hypochromasia Present 07/27/23 08:14 Poikilocytosis Present 07/26/23 16:32 Anisocytosis Present 07/27/23 08:14 Microcytosis Present 07/27/23 08:14 PT 11.7 Seconds (9.0-12.0) 07/26/23 16:32 INR 1.1 (0.9-1.1) 07/26/23 16:32 APTT 24.7 Seconds (21.0-31.0) 07/26/23 16:32 PTT Ratio 0.9 07/26/23 16:32 Sodium 136 mmol/L (136-145) 07/26/23 16:32 Potassium 4.0 mmol/L (3.5-5.1) 07/26/23 16:32 Chloride 105 mmol/L (98-107) 07/26/23 16:32 Carbon Dioxide 24 mmol/L (21-32) 07/26/23 16:32 Anion Gap 7 (3-11) 07/26/23 16:32 BUN 8 mg/dl (6-23) 07/26/23 16:32 Creatinine 0.55 mg/dl (0.6-1.4) L 07/26/23 16:32 Est Cr Clr Drug Dosing 141.9 ml/min 07/26/23 16:32 Est GFR ( Amer) 136.0 ml/min 07/26/23 16:32 Est GFR (Non-Af Amer) 117.3 ml/min 07/26/23 16:32 BUN/Creatinine Ratio 14.5 (10-20) 07/26/23 16:32 Glucose 102 mg/dl (70-99(Fasting)) H 07/26/23 16:32 Calcium 8.8 mg/dl (8.6-10.3) 07/26/23 16:32 Iron < 10 mcg/dl (35-175) L 07/26/23 16:32 TIBC TNP 07/26/23 16:32 Unsaturated IBC 519 mcg/dl (155-355) H 07/26/23 16:32 Transferrin % Sat TNP 07/26/23 16:32 Total Bilirubin 0.3 mg/dl (0.2-1.0) 07/26/23 16:32 AST 13 U/L (13-39) 07/26/23 16:32 ALT 12 U/L (7-52) 07/26/23 16:32 Alkaline Phosphatase 70 U/L (34-104) 07/26/23 16:32 Troponin I High Sens 2.8 pg/ml (0-20) 07/26/23 16:32 C-Reactive Protein 2.60 mg/dl (0-0.5) H 07/26/23 16:32 Total Protein 6.7 gm/dl (6.0-8.3) 07/26/23 16:32 Albumin 4.0 gm/dl (3.4-5.0) 07/26/23 16:32 Globulin 2.7 gm/dl (2.5-4.0) 07/26/23 16:32 Albumin/Globulin Ratio 1.5 (0.9-2) 07/26/23 16:32 Lipase 24 U/L (11-82) 07/26/23 16:32 Vitamin B12 851 pg/ml (180-914) 07/26/23 19:32 Folate > 22.30 ng/ml (>5.38) 07/26/23 19:32 Procalcitonin < 0.05 ng/ml (0-0.5) 07/26/23 16:32 Urine Color Yellow 07/26/23 22:30 Urine Appearance Clear (Clear) 07/26/23 22:30 Urine pH 8.5 (4.5-7.5) H 07/26/23 22:30 Ur Specific [place] 1.009 (1.000-1.030) 07/26/23 22:30 Urine Protein Negative (Negative) 07/26/23 22:30 Urine Glucose (UA) Negative (Negative) 07/26/23 22:30 Urine Ketones Negative (Negative) 07/26/23 22:30 Urine Blood Negative (Negative) 07/26/23 22:30 Urine Nitrite Positive (Negative) A 07/26/23 22:30 Urine Bilirubin Negative (Negative) 07/26/23 22:30 Urine Urobilinogen Negative (Negative) 07/26/23 22:30 Ur Leukocyte Esterase 2+ (Negative) H 07/26/23 22:30 Urine WBC (Auto) 10-30 /hpf (0-5) H 07/26/23 22:30 Urine RBC (Auto) 0-4 /hpf (0-4) 07/26/23 22:30 U Hyaline Cast (Auto) 1-5 /lpf (0-5) 07/26/23 22:30 U Epithel Cells (Auto) 0-5 /lpf (0-5) 07/26/23 22:30 Urine Bacteria (Auto) 1+ (Negative) H 07/26/23 22:30 Blood Type B Positive 07/26/23 16:32 Blood Type Recheck B Positive 07/26/23 16:37 Antibody Screen NEGATIVE 07/26/23 16:32 Crossmatch See Detail 07/26/23 16:32 Impressions Chest X-Ray 07/26/23 16:21 SINGLE VIEW CHEST CLINICAL HISTORY: Atypical chest pain. FINDINGS: 2 AP, portable, upright chest radiographs are compared to study dated 06/21/2017 and correlated with chest CT dated 06/18/2017. Again seen is cardiomegaly, greatest involving the right cardiac chambers. The pulmonary vasculature is noncongested. Scarring/atelectasis is seen at the lung bases. The lungs and pleural spaces are otherwise clear. No pneumothorax is seen. The skeletal structures appear osteopenic. The bony thorax is grossly intact. Fusion hardware is noted in the lower cervical spine. IMPRESSION: Cardiomegaly with no acute cardiopulmonary abnormality identified. ACT 112: Negative or not required by law. Electronically signed by: Keith Chery M.D. 07/26/2023 6:02 PM Abdomen/Pelvis CTA 07/26/23 18:19 Exam(s): CTA ABDOMEN + PELVIS With Contrast IV Amt: 118 ml opti 350 EXAM: CT Angiography Abdomen and Pelvis With Intravenous Contrast CLINICAL HISTORY: Reason for exam: acute anemia, GIB eval. TECHNIQUE: Axial computed tomographic angiography images of the abdomen and pelvis with intravenous contrast. CTDI is 24.83 mGy and DLP is 1447.43 mGy-cm. Automated exposure control was utilized for the study. A dose lowering technique was utilized adhering to the principles of ALARA. MIP reconstructed images were created and reviewed. CONTRAST: Patient received 118 ml opti 350 of IV contrast COMPARISON: No relevant prior studies available. FINDINGS: VASCULATURE: Aorta: No acute findings. No abdominal aortic aneurysm. No dissection. Celiac trunk and mesenteric arteries: No acute findings. No occlusion or significant stenosis. Renal arteries: No acute findings. No occlusion or significant stenosis. Iliac arteries: Severe stenosis in the proximal right common iliac artery. Moderate stenosis within the left common iliac artery. The external iliac arteries are diminutive in caliber but patent.. Lung bases: Unremarkable. No mass. No consolidation. Pleural space: Trace pleural effusions and trace pericardial effusion. ABDOMEN: Liver: Unremarkable. No mass. Gallbladder and bile ducts: Unremarkable. No calcified stones. No ductal dilation. Pancreas: Unremarkable. No ductal dilation. No mass. Spleen: Unremarkable. No splenomegaly. Adrenals: Unremarkable. No mass. Kidneys and ureters: Unremarkable. No hydronephrosis. No solid mass. Stomach and bowel: No visualized active GI bleed. No bowel obstruction or inflammatory changes along the GI tract. Intact sutures within the rectum. No mucosal thickening. PELVIS: Appendix: No findings to suggest acute appendicitis. Bladder: Mucosal thickening in the bladder as can be seen in the setting of cystitis. [place] catheter within the bladder. Reproductive: Unremarkable as visualized. ABDOMEN and PELVIS: Intraperitoneal space: Unremarkable. No significant fluid collection. No free air. Bones/joints: Severe osteopenia. No acute fracture. No dislocation. Soft tissues: Unremarkable. Lymph nodes: Unremarkable. No enlarged lymph nodes. IMPRESSION: 1. No visualized active GI bleed. 2. Mucosal thickening in the bladder as can be seen in the setting of cystitis. 3. Trace pleural effusions and trace pericardial effusion. 4. Severe osteopenia. Out of proportion given the patient's age and sex. Consider DEXA. 5. 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 Electronically signed by: Vance Loera MD 07/27/23 02:22 AM PG Care Time/CCT Total # of Minutes Spent Total Time Spent with Patient: Total time spent is greater than 50% in coordination of care (as documented) at patient's floor/unit and/or counseling patient: Coding Level of Care Code 57821 INT INP/OBS CARE 3/75MIN Diagnoses Symptomatic anemia D64.9 Low hematocrit D64.9
[2023-07-27] MEDS ORDERED: PANTOprazole 40 MG in SYRINGE 0 ML IV SCH (10:30)
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
[2023-07-28] MEDS ORDERED: LIDOCAINE 2% 2 ML VIAL/AMP(20MG/ML) INFIL ONE (08:14)
[2023-07-28] MEDS ORDERED: PROPOFOL IV EMULSION 10 MG/ML 20 ML VIAL IV ONE ×2 (08:14→08:40)
--- NOTE | 2023-07-28 18:03 | Electrocardiogram Report ---
Test Reason : Blood Pressure : / mmHG Vent. Rate : 088 BPM Atrial Rate : 088 BPM P-R Int : 154 ms QRS Dur : 070 ms QT Int : 362 ms P-R-T Axes : 051 066 079 degrees QTc Int : 438 ms Normal sinus rhythm Normal ECG When compared with ECG of 20-JUN-2017 02:21, Vent. rate has decreased BY 49 BPM Nonspecific T wave abnormality no longer evident in Inferior leads Nonspecific T wave abnormality no longer evident in Anterolateral leads Confirmed by Alejo Shaikh ([id number] on 07/28/2023 6:03:03 PM Referred By: Alicia Soto Confirmed By:Royer Shaikh
== END 2023-07-27 13:48 | disposition left against medical advice (07) ==
LOC: ED 15:55 → EDINP 15:55 → SUATTDRO 07-27 03:06 → EDINP 07-27 04:35